=== PATIENT | female | born 1945 | race African-American/Black ===

== ENCOUNTER 2017-08-11 06:39 | Day surgery (SDC) | payer OTHER, BC ==
[2017-08-07 12:35] VITALS: BMI 31.7
[2017-08-11] MEDS: CYCLOPENTOLATE HCL 1% OPHTH SOLN 2 ML BOTTLE ONE ×2 (07:11→07:20)
[2017-08-11] MEDS: FLURBIPROFEN 0.03% OPHTH SOLN 2.5 ML BOTTLE ONE ×2 (07:12→07:20)
[2017-08-11] MEDS: PHENYLEPHRINE 2.5% OPHTH SOLN 15 ML BOTTLE ONE ×2 (07:12→07:21)
[2017-08-11] MEDS: MOXIFLOXACIN HCL 0.5% OPHTHALMIC 3 ML BOTTLE ONE ×2 (07:12→07:22)
[2017-08-11] MEDS: TROPICAMIDE 1% OPHTH SOLN 15 ML BOTTLE ONE ×2 (07:12→07:21)
[2017-08-11 07:14] VITALS: BP 129/44; PULSE 83; TEMP 98
[2017-08-11] MEDS ORDERED: TOBRA 0.3%/DEXAMETH 0.1% OPHTHALMIC SUSP 2.5 ML BTL ONE (07:16)
[2017-08-11] MEDS ORDERED: TETRACAINE 0.5% OPHTH SOLN 2 ML BOTTLE ONE (07:17)
[2017-08-11] MEDS ORDERED: EPINEPHrine/PF 1 MG/1 ML (1:1,000) AMPULE ONE (07:17)
[2017-08-11] MEDS ORDERED: POVIDONE-IODINE 5% OPHTHALMIC PREP 30 ML SOLUTION ONE (07:17)
== END 2017-08-11 09:21 | disposition home or self-care (01) ==
LOC: JASU-SURG 06:39
PROVIDERS: ATTEND Ophthalmology
PROC: 08DK3ZZ Extraction of Left Lens, Percutaneous Approach (ICD-10-PCS; principal; 2017-08-11)
DX: Z53.8 Procedure and treatment not carried out for other reasons (principal)
CPT/HCPCS: 36415; 82947

== ENCOUNTER 2017-09-01 09:19 | Day surgery (SDC) | payer OTHER, BC ==
[2017-08-28 16:53] VITALS: BMI 31.7
[~2017-09-01 09:19] MED LIST: BSS (NA/CA/MG/K) BALANCED SALT SOLUTION OPHTH SOLN 15 ML BOTTLE OD ONE; CHONDROITIN SU A/HYALUR SOD 1 KIT IO ONE; LIDOCAINE HCL 1% PRESERVATIVE FREE - 30ML VIAL IO ONE; PHENYLEPHRINE/KETOROLAC 4 ML VIAL IO ONE; POVIDONE-IODINE 5% OPHTHALMIC PREP 30 ML SOLUTION OD ONE; TETRACAINE 0.5% OPHTH SOLN 2 ML BOTTLE OD ONE; TOBRA 0.3%/DEXAMETH 0.1% OPHTHALMIC SUSP 2.5 ML BTL OD ONE
[2017-09-01] MEDS ORDERED: PHENYLEPHRINE/KETOROLAC 4 ML VIAL IO ONE ×2 (09:30→11:17)
[2017-09-01 09:53] VITALS: TEMP 98
[2017-09-01] MEDS ORDERED: FLURBIPROFEN 0.03% OPHTH SOLN 2.5 ML BOTTLE ONE (10:05)
[2017-09-01] MEDS ORDERED: PHENYLEPHRINE 2.5% OPHTH SOLN 15 ML BOTTLE ONE (10:05)
[2017-09-01] MEDS ORDERED: TROPICAMIDE 1% OPHTH SOLN 15 ML BOTTLE ONE (10:05)
[2017-09-01] MEDS ORDERED: CYCLOPENTOLATE HCL 1% OPHTH SOLN 2 ML BOTTLE ONE (10:05)
[2017-09-01] MEDS ORDERED: MOXIFLOXACIN HCL 0.5% OPHTHALMIC 3 ML BOTTLE ONE (10:05)
[2017-09-01] MEDS ORDERED: PHENYLEPHRINE 2.5% OPHTH SOLN 15 ML BOTTLE OD ONE ×2 (10:10→10:15)
[2017-09-01] MEDS ORDERED: TROPICAMIDE 1% OPHTH SOLN 15 ML BOTTLE OD ONE ×2 (10:10→10:15)
[2017-09-01] MEDS ORDERED: CYCLOPENTOLATE HCL 1% OPHTH SOLN 2 ML BOTTLE OD ONE ×2 (10:10→10:15)
[2017-09-01] MEDS ORDERED: FLURBIPROFEN 0.03% OPHTH SOLN 2.5 ML BOTTLE OD ONE ×2 (10:10→10:15)
[2017-09-01] MEDS ORDERED: MOXIFLOXACIN HCL 0.5% OPHTHALMIC 3 ML BOTTLE OD ONE ×2 (10:10→10:15)
[2017-09-01] MEDS ORDERED: MIDAZOLAM HCL 2 MG/2 ML SINGLE DOSE VIAL ONE (10:47)
[2017-09-01] MEDS ORDERED: TETRACAINE 0.5% OPHTH SOLN 2 ML BOTTLE OD ONE (10:56)
[2017-09-01] MEDS ORDERED: POVIDONE-IODINE 5% OPHTHALMIC PREP 30 ML SOLUTION OD ONE (10:59)
[2017-09-01] MEDS ORDERED: LIDOCAINE HCL 1% PRESERVATIVE FREE - 30ML VIAL IO ONE (11:12)
[2017-09-01] MEDS ORDERED: BSS (NA/CA/MG/K) BALANCED SALT SOLUTION OPHTH SOLN 15 ML BOTTLE OD ONE (11:12)
[2017-09-01] MEDS ORDERED: CHONDROITIN SU A/HYALUR SOD 1 KIT IO ONE (11:12)
[2017-09-01] MEDS ORDERED: TOBRA 0.3%/DEXAMETH 0.1% OPHTHALMIC SUSP 2.5 ML BTL OD ONE (11:33)
[2017-09-01 11:52] VITALS: PULSE 78
[2017-09-01 13:33] VITALS: BP 133/73
--- NOTE | 2017-09-01 20:27 | OP ---
DATE OF OPERATION: 09/01/2017 SPECIALIST: Sharron Crockett M.D. PREOPERATIVE DIAGNOSIS: Cataract right eye. POSTOPERATIVE DIAGNOSIS: Cataract right eye. PROCEDURE: Phacoemulsification of cataract, right eye, with in-bag placement of 20.5 diopter SN60WF with use of . ANESTHESIA: Local. PROCEDURE: The patient was brought to the operating room, and the right eye was prepped and draped in the usual sterile fashion for ophthalmic surgery after placing the tetracaine eye drops. The microscope was swung into position and a 2.75 keratome was used to enter the anterior chamber at approximately 10 o'clock position, with an accessory port made at approximately 2 o'clock position. Cystotome and Utrata forceps were used to make a continuous circular capsulorrhexis after filling the anterior chamber with 0.5 mL of preservative-free lidocaine and viscoelastic. BSS was used to perform hydrodissection and hydrodelineation of the lens nucleus, which was then rotated freely. Phacoemulsification was carried out in a vluude-ovl-[id number] technique. The IA was used to remove residual cortical material from the capsular bag which was then found to be intact and injected into it was a SN60WF 20.5 diopter IOL. It rotated and placed into position using the Sinskey hook. IA was used to remove residual viscoelastic from the capsular bag and anterior chamber. The corneal lip wounds were hydrated with BSS and was found to be watertight. A contact lens soaked in Tobradex solution for approximately 10 minutes was then draped in the cornea. The eye was patched and shielded and patient was transferred to the recovery room in a stable condition having tolerated the procedure well. Faheem [id number]
== END 2017-09-01 13:33 | disposition home or self-care (01) ==
LOC: JASU-SURG 09:19
PROVIDERS: ATTEND Ophthalmology
PROC: 08RJ3JZ Replacement of Right Lens with Synthetic Substitute, Percutaneous Approach (ICD-10-PCS; principal; 2017-09-01 10:30)
DX: H26.9 Unspecified cataract (principal)
CPT/HCPCS: 82962; C9447

== ENCOUNTER 2017-09-22 07:40 | Day surgery (SDC) | payer OTHER, BC ==
[2017-09-19 12:08] VITALS: BMI 32.1
[~2017-09-22 07:40] MED LIST changes: -BSS (NA/CA/MG/K) BALANCED SALT SOLUTION OPHTH SOLN 15 ML BOTTLE OD ONE; -CHONDROITIN SU A/HYALUR SOD 1 KIT IO ONE; -LIDOCAINE HCL 1% PRESERVATIVE FREE - 30ML VIAL IO ONE; -POVIDONE-IODINE 5% OPHTHALMIC PREP 30 ML SOLUTION OD ONE; -TETRACAINE 0.5% OPHTH SOLN 2 ML BOTTLE OD ONE; -TOBRA 0.3%/DEXAMETH 0.1% OPHTHALMIC SUSP 2.5 ML BTL OD ONE; +TOBRA 0.3%/DEXAMETH 0.1% OPHTHALMIC SUSP 2.5 ML BTL OS ONE
[2017-09-22 07:54] VITALS: TEMP 98.5
[2017-09-22] MEDS: MOXIFLOXACIN HCL 0.5% OPHTHALMIC 3 ML BOTTLE ONE ×3 (08:10→08:28)
[2017-09-22] MEDS: CYCLOPENTOLATE HCL 1% OPHTH SOLN 2 ML BOTTLE ONE ×3 (08:10→08:28)
[2017-09-22] MEDS: PHENYLEPHRINE 2.5% OPHTH SOLN 15 ML BOTTLE ONE ×3 (08:10→08:28)
[2017-09-22] MEDS: FLURBIPROFEN 0.03% OPHTH SOLN 2.5 ML BOTTLE ONE ×3 (08:10→08:28)
[2017-09-22] MEDS: TROPICAMIDE 1% OPHTH SOLN 15 ML BOTTLE ONE ×3 (08:10→08:28)
[2017-09-22] MEDS ORDERED: TOBRA 0.3%/DEXAMETH 0.1% OPHTHALMIC SUSP 2.5 ML BTL OS ONE (09:07)
[2017-09-22] MEDS ORDERED: MIDAZOLAM HCL 2 MG/2 ML SINGLE DOSE VIAL ONE (09:20)
[2017-09-22] MEDS ORDERED: TETRACAINE 0.5% OPHTH SOLN 2 ML BOTTLE OS ONE (09:30)
[2017-09-22] MEDS ORDERED: POVIDONE-IODINE 5% OPHTHALMIC PREP 30 ML SOLUTION OS ONE (09:35)
[2017-09-22] MEDS ORDERED: CHONDROITIN SU A/HYALUR SOD 1 KIT IO ONE (09:46)
[2017-09-22] MEDS ORDERED: BSS (NA/CA/MG/K) BALANCED SALT SOLUTION OPHTH SOLN 15 ML BOTTLE OS ONE (09:46)
[2017-09-22] MEDS ORDERED: LIDOCAINE HCL 1% PRESERVATIVE FREE - 30ML VIAL IO ONE (09:46)
[2017-09-22] MEDS ORDERED: PHENYLEPHRINE/KETOROLAC 4 ML VIAL IO ONE (09:52)
[2017-09-22 10:46] VITALS: BP 94/51; PULSE 72
--- NOTE | 2017-09-22 19:06 | OP ---
DATE OF OPERATION: 09/22/2017 SPECIALIST: Sharron Crockett MD PREOPERATIVE DIAGNOSIS: Cataract, left eye. POSTOPERATIVE DIAGNOSIS: Cataract, left eye. PROCEDURE: Phacoemulsification of cataract, left eye, with in-bag placement of SN60WF 19.5-diopter intraocular lens using Omidria. ANESTHESIA: Local. DESCRIPTION OF PROCEDURE: Patient was brought to the operating room, and the left eye was prepped and draped in the usual sterile fashion for ophthalmic surgery after placing tetracaine eye drops. The microscope was swung into position, and a 2.75 keratome was used to enter the anterior chamber at approximately 2 o'clock position with an accessory port made at approximately 5 o'clock position after filling the anterior chamber with 0.5 mL of preservative-free lidocaine and viscoelastic. Cystotome and Utrata forceps were used to make a continuous circular capsulorrhexis. BSS was used to perform hydrodissection and hydrodelineation of the lens nucleus which was then rotated freely. Phacoemulsification was carried out in a olyvmf-ipl-imigccv technique. IA was used to remove residual viscoelastic and cortical material from the capsular bag, which was found to be intact and which was injected with an SN60WF 19.5 diopter IOL. The IA was used to remove residual viscoelastic from the capsular bag and anterior chamber. The corneal lip wounds were then hydrated with BSS and were found to be watertight. A contact lens soaked in TobraDex solution for approximately 10 minutes was then draped in the cornea. The eye was patched and shielded. The patient was transferred to recovery room in a stable condition, having tolerated the procedure well. Omidria was used in the infusion bag. Faheem [id number]
== END 2017-09-22 11:16 | disposition home or self-care (01) ==
LOC: JASU-SURG 07:40
PROVIDERS: ATTEND Ophthalmology
PROC: 08RK3JZ Replacement of Left Lens with Synthetic Substitute, Percutaneous Approach (ICD-10-PCS; principal; 2017-09-22 09:00)
DX: H26.9 Unspecified cataract (principal)
CPT/HCPCS: 82962; C9447

== ENCOUNTER 2017-12-05 22:47 | Inpatient (IN) | payer OTHER, BC ==
--- NOTE | 2017-12-05 22:59 | PDOC ---
History of Present Illness - General Chief Complaint: Weakness Stated Complaint: FATIGUE Time Seen by Provider: 12/05/17 22:59 - History of Present Illness Initial Comments: 12/05/17 23:37 Ms. Ugalde is a 72 yo woman w/ pmh of IDDM, HTN, HLD who presents w/ 3-4 days of weakness w/ altered mental status per family. They say that she has been much more unsteady recently and unable to walk without assistance. She is supposed to take insulin at home but they are unaware of the last time that she took it. Ms. Ugalde also reports she has been urinating frequently lately. The patient denies chest pain, shortness of breath, headache and dizziness. Denies fever, chills, nausea, vomit, diarrhea and constipation. Denies dysuria, urgency and hematuria. Allergies: Metformin Past History - Past Medical History Allergies/Adverse Reactions: Allergies Allergy/AdvReac Type Severity Reaction Status Date / Time metformin AdvReac "NAUSEOUS" Verified 09/19/17 12:05 Home Medications: Ambulatory Orders Atorvastatin Ca [Lipitor] 40 mg PO HS #0 tablet 01/19/13 Cholecalciferol (Vitamin D3) [Vitamin D3 -] 1,000 unit PO DAILY 06/13/17 Insulin (Levemir) [Levemir Flexpen -] 58 units SQ HS 06/13/17 Lisinopril [Prinivil -] 5 mg PO DAILY 06/13/17 Brimonidine Tartrate [Alphagan 0.15% -] 1 drop OD TID 08/07/17 Glipizide [Glucotrol -] 5 mg PO TID 08/07/17 Meclizine HCl 25 mg PO PRN PRN 08/07/17 Brimonidine Tartrate/Timolol [Combigan Eye Drops] 10 ml OP DAILY 12/05/17 Ketorolac Tromethamine 5 ml OP DAILY 12/05/17 Ofloxacin 0.3% Ophth Soln [Ocuflox 0.3% Eye Drops -] 5 ml OP DAILY 12/05/17 Prednisolone 1% Ophthalmic [Pred Forte 1% -] 5 ml OP DAILY 12/05/17 Anemia: No Asthma: No Cancer: No Cardiac Disorders: No CVA: No COPD: No CHF: No Dementia: No Diabetes: Yes GI Disorders: No Disorders: No HTN: Yes Hypercholesterolemia: Yes Liver Disease: No Seizures: No Thyroid Disease: No - Surgical History Abdominal Surgery: No Appendectomy: No Cardiac Surgery: No Cholecystectomy: No Lung Surgery: No Neurologic Surgery: No Orthopedic Surgery: No - Suicide/Smoking/Psychosocial Hx Smoking Status: No Smoking History: Former smoker Have you smoked in the past 12 months: No Number of Cigarettes Smoked Daily: 0 If you are a former smoker, when did you quit?: 21YRS OLD Information on smoking cessation initiated: No Hx Alcohol Use: No Drug/Substance Use Hx: No Substance Use Type: None Hx Substance Use Treatment: No Review of Systems - Review of Systems Comments:: 12/05/17 23:39 GENERAL/CONSTITUTIONAL: +Weakness as described. No fever or chills. HEAD, EYES, EARS, NOSE AND THROAT: No change in vision. No ear pain or discharge. No sore throat. CARDIOVASCULAR: No chest pain or shortness of breath RESPIRATORY: No cough, wheezing, or hemoptysis. GASTROINTESTINAL: No nausea, vomiting, diarrhea or constipation. GENITOURINARY: Increased frequency as described.. MUSCULOSKELETAL: No joint or muscle swelling or pain. No neck or back pain. SKIN: No rash NEUROLOGIC: No headache, vertigo, loss of consciousness, or change in strength/ sensation. ENDOCRINE: No increased thirst. No abnormal weight change HEMATOLOGIC/LYMPHATIC: No anemia, easy bleeding, or history of blood clots. ALLERGIC/IMMUNOLOGIC: No hives or skin allergy. *Physical Exam - Vital Signs Last Vital Signs Temp Pulse Resp BP Pulse Ox 97.4 F L 127 H 20 141/74 100 12/05/17 22:55 12/05/17 22:55 12/05/17 22:55 12/05/17 22:55 12/05/17 22:55 - Physical Exam Comments: 12/05/17 23:39 GENERAL: +Delayed responses, patient distractable. Patient otherwise awake, alert, and fully oriented, in no acute distress HEAD: No signs of trauma, normocephalic, atraumatic EYES: PERRLA, EOMI, sclera anicteric, conjunctiva clear ENT: Auricles normal inspection, hearing grossly normal, nares patent, oropharynx clear without exudates. Moist mucosa NECK: Normal ROM, supple, no lymphadenopathy, JVD, or masses LUNGS: No distress, speaks full sentences, clear to auscultation bilaterally HEART: Regular rate and rhythm, normal S1 and S2, no murmurs, rubs or gallops, peripheral pulses normal and equal bilaterally. ABDOMEN: Soft, nontender, normoactive bowel sounds. No guarding, no rebound. No masses EXTREMITIES: Normal inspection, Normal range of motion, no edema. No clubbing or cyanosis. NEUROLOGICAL: Cranial nerves II through XII grossly intact. Normal speech, normal gait, no focal sensorimotor deficits SKIN: Warm, Dry, normal turgor, no rashes or lesions noted. 12/05/17 23:40 ED Treatment Course - LABORATORY CBC & Chemistry Diagram: 12/05/17 23:20 12/05/17 23:20 Medical Decision Making - Medical Decision Making 12/05/17 23:40 Ms. Ugalde is a 72 yo female w/ pmh as described who presents w/ symptoms of weakness and ams. Finger stick on presentation over-range. Workup begun for suspected DKA. NS Started. 12/06/17 01:23 Blood sugar 1465. Potassium noted to be 5.1. Anion Gap 30. Insulin weight based push given with additional insulin drip. 12/06/17 02:19 Patient admitted to ICU for DKA. Laboratory Results - last 24 hr 12/05/17 12/05/17 12/05/17 23:20 23:20 23:20 WBC 14.2 H D RBC 5.98 H D Hgb 15.8 H D Hct 53.1 H D MCV 88.8 MCH 26.4 MCHC 29.7 L RDW 16.2 H D Plt Count 356 D MPV 11.2 H D Neutrophils % 91.1 H D Lymphocytes % 4.3 L D Monocytes % 4.5 Eosinophils % 0.0 D Basophils % 0.1 PT with INR INR PTT (Actin FS) 28.5 VBG pH POC VBG pCO2 POC VBG pO2 Mixed VBG HCO3 Sodium Potassium Chloride Carbon Dioxide Anion Gap BUN Creatinine Creat Clearance w eGFR Random Glucose Calcium Total Bilirubin AST ALT Alkaline Phosphatase Creatine Kinase 173 Creatine Kinase Index 0.6 CK-MB (CK-2) 1.070 Troponin I < 0.02 B-Natriuretic Peptide Total Protein Albumin Urine Color Urine Appearance Urine pH Ur Specific [place] Urine Protein Urine Glucose (UA) Urine Ketones Urine Blood Urine Nitrite Urine Bilirubin Urine Urobilinogen Ur Leukocyte Esterase Acetone, Qual 12/05/17 12/05/17 12/05/17 23:20 23:20 23:20 WBC RBC Hgb Hct MCV MCH MCHC RDW Plt Count MPV Neutrophils % Lymphocytes % Monocytes % Eosinophils % Basophils % PT with INR 12.00 H INR 1.06 PTT (Actin FS) VBG pH 7.24 L* POC VBG pCO2 40.2 POC VBG pO2 42.1 Mixed VBG HCO3 16.7 L Sodium Potassium Chloride Carbon Dioxide Anion Gap BUN Creatinine Creat Clearance w eGFR Random Glucose Calcium Total Bilirubin AST ALT Alkaline Phosphatase Creatine Kinase Creatine Kinase Index CK-MB (CK-2) Troponin I B-Natriuretic Peptide 76.58 Total Protein Albumin Urine Color Urine Appearance Urine pH Ur Specific [place] Urine Protein Urine Glucose (UA) Urine Ketones Urine Blood Urine Nitrite Urine Bilirubin Urine Urobilinogen Ur Leukocyte Esterase Acetone, Qual 12/05/17 12/05/17 23:20 23:59 WBC RBC Hgb Hct MCV MCH MCHC RDW Plt Count MPV Neutrophils % Lymphocytes % Monocytes % Eosinophils % Basophils % PT with INR INR PTT (Actin FS) VBG pH POC VBG pCO2 POC VBG pO2 Mixed VBG HCO3 Sodium 135 L Potassium 5.1 Chloride 87 L Carbon Dioxide 18 L Anion Gap 30 H BUN 57 H Creatinine 3.0 H Creat Clearance w eGFR 15.38 Random Glucose 1465 H* Calcium 11.6 H Total Bilirubin 0.7 AST 13 L ALT 31 Alkaline Phosphatase 196 H Creatine Kinase Creatine Kinase Index CK-MB (CK-2) Troponin I B-Natriuretic Peptide Total Protein 9.5 H Albumin 5.0 Urine Color Yellow Urine Appearance Cloudy Urine pH 5.0 Ur Specific [place] 1.024 Urine Protein Negative Urine Glucose (UA) 3+ H Urine Ketones Trace H Urine Blood Negative Urine Nitrite Negative Urine Bilirubin Negative Urine Urobilinogen Negative Ur Leukocyte Esterase Negative Acetone, Qual Positive moderate 2+ H *DC/Admit/Observation/Transfer Diagnosis at time of Disposition: DKA (diabetic ketoacidoses) Qualifiers: Diabetes mellitus type: type 2 Diabetes mellitus complication detail: without coma Qualified Code(s): E11.10 - Type 2 diabetes mellitus with ketoacidosis without coma - Discharge Dispostion Admit: Yes - Referrals Referrals: Naima Conde MD [Primary Care Provider] - - Patient Instructions - Post Discharge Activity
[2017-12-05] MEDS ORDERED: SODIUM CHLORIDE 1,000 ML IV STA (23:15)
[2017-12-05 23:41] LABS: BASO % 0.1 % (0-2.0); HEMATOCRIT 53.1 % (32.4-45.2); HEMOGLOBIN 15.8 GM/dL (10.7-15.3); LYMPH % 4.3 % (8-40); MCH 26.4 pg (25.7-33.7); MCHC 29.7 g/dl (32.0-36.0); MEAN CELL VOLUME 88.8 fl (80-96); MEAN PLT VOLUME 11.2 fl (7.5-11.1); MONO % 4.5 % (3.8-10.2); NEUT % 91.1 % (42.8-82.8); PLATELET COUNT 356 K/MM3 (134-434); RBC 5.98 M/mm3 (3.60-5.2); RDW 16.2 % (11.6-15.6); WHITE BLOOD COUNT 14.2 K/mm3 (4.0-10.0)
[2017-12-05 23:42] LABS: VENOUS PC02 40.2 mmHg (38-52); VENOUS PH 7.24 (7.32-7.42); VENOUS PO2 42.1 mmHg (28-48)
[2017-12-05 23:54] LABS: INR 1.06 (0.82-1.09)
[2017-12-06 00:08] LABS: ACETONE SERUM POSITIVE MODERATE 2+ (NEGATIVE)
[2017-12-06 00:11] LABS: ALK PHOS 196 U/L (45-117); ANION GAP 30 (8-16); BILIRUBIN,TOTAL 0.7 mg/dL (0.2-1.0); BLOOD UREA NITROGEN 57 mg/dL (7-18); CALCIUM 11.6 mg/dL (8.5-10.1); CHLORIDE 87 mmol/L (98-107); CO2 18 mmol/L (21-32); POTASSIUM 5.1 mmol/L (3.5-5.1); SGOT/AST 13 U/L (15-37); SGPT/ALT 31 U/L (12-78); SODIUM 135 mmol/L (136-145); TOT PROT 9.5 g/dl (6.4-8.2)
[2017-12-06 00:14] LABS: URINE APPEARANCE CLOUDY; URINE BILIRUBIN NEGATIVE (<2.0 mg/dL); URINE BLOOD NEGATIVE (NEGATIVE); URINE COLOR YELLOW; URINE GLUCOSE (UA) 3+ (NEGATIVE); URINE KETONE TRACE (NEGATIVE); URINE LEUK ESTERASE NEGATIVE (NEGATIVE); URINE NITRITE NEGATIVE (NEGATIVE); URINE PROTEIN NEGATIVE (NEGATIVE); URINE UROBILINOGEN NEGATIVE mg/dL (0.2-1.0)
--- NOTE | 2017-12-06 00:18 | PDOC ---
Attending Attestation - Resident Resident Name: Marques Rehman - ED Attending Attestation I have performed the following: I have examined & evaluated the patient, The case was reviewed & discussed with the resident, I agree w/resident's findings & plan, Exceptions are as noted - HPI HPI: 12/05/17 23:49 72 F with h/o HTN, DM, HLD presenting to ED with 6 days with nausea, vomiting, and SOB. Pt denies CP. Denies F/C. Denies abdominal pain. Pt admits to being poorly compliant with her meds. Does not check her sugars regularly. Denies h/o DKA/HHS. Endorses excessive thirst and urination. - Physicial Exam PE: 12/06/17 00:18 "GENERAL: Awake, alert, and fully oriented, in no acute distress. Generally weak appearing. HEAD: No signs of trauma EYES: PERRLA, EOMI, sclera anicteric, conjunctiva clear ENT: Auricles normal inspection, hearing grossly normal, nares patent, oropharynx clear without exudates. Moist mucosa NECK: Nontender, no stepoffs, Normal ROM, supple, no lymphadenopathy, JVD, or masses LUNGS: Breath sounds equal, clear to auscultation bilaterally. No wheezes, and no crackles HEART: Regular rate and rhythm, normal S1 and S2, no murmurs, rubs or gallops ABDOMEN: Soft, nontender, normoactive bowel sounds. No guarding, no rebound. No masses EXTREMITIES: Normal range of motion, no edema. No clubbing or cyanosis. No cords, erythema, or tenderness NEUROLOGICAL: Cranial nerves II through XII intact. 5/5 strength and sensation in all extremities, Normal speech, normal gait, normal cerebellar function SKIN: Warm, Dry, normal turgor, no rashes or lesions noted. " - Medical Decision Making 12/06/17 00:19 72 F with N/V, SOB. Fingerstick in ED critical high. Likely DKA vs HHS. - Labs, acetone, VBG, UA - IVF, insulin prn 12/06/17 02:43 Labs consistent with DKA - AG 30, + serum and urine ketones, pH 7.2 Pt bolused with insulin 7u IV and started on gtt @ 7u 2L NS bolus administered Will check Q1hr fingerstick and Q4hr chemistries Admit ICU
[2017-12-06 00:28] LABS: GLUCOSE,RANDOM 1465 mg/dL (74-106)
[2017-12-06] MEDS ORDERED: INSULIN REGULAR HUMAN 100 UNITS/ML *VIAL IVPUSH ONE (00:29)
[2017-12-06] MEDS ORDERED: INSULIN REGULAR 100 UNITS in SODIUM CHLORIDE 99 ML IVPB SCH (00:30)
[2017-12-06] MEDS ORDERED: SODIUM CHLORIDE 1,000 ML IV STA (00:40)
[2017-12-06] MEDS ORDERED: INSULIN REGULAR HUMAN 100 UNITS/ML *VIAL ONE (01:20)
--- NOTE | 2017-12-06 02:37 | HP ---
CHIEF COMPLAINT: vomiting, fatigue, polyuria PCP: Dr. Naima Conde Endo: Dr. palacios Neuro: Dr. Molina HISTORY OF PRESENT ILLNESS: 72 yr old woman with DMII on insulin, HTN, glaucoma, cataracts brought to ED by due to vomiting since 2pm Friday and fatigue. She was sleeping the entire day and would only wake up to urinate and then started to vomiting nonbilious nonbloody emesis, few episodes, occurred when she drank water. She had not been feeling well all week, started drinking [place] spray cranberry juice since the weekend because it said "there was no sugar in it." she notes polyuria and polydipsia, "no matter how much I drank, I couldn't get enough." Her was sick last week with the flu. All week she has been experiencing chills and a mild headache. She takes her fasting AM BGM's: 140-150's this week , her usual range. no new medications or medication changes in last 3 months. She was in [place] for the past month where spent time raking leaves in the yard. denies fevers, diarrhea, constipation, cough, chest pain, sob, syncope. ER course was notable for: (1) IVF NS bolus x2, insulin drip (2) chest xray without acute pathology Recent Travel: [place] PAST MEDICAL HISTORY: DM II, HTN, glaucoma, cataracts PAST SURGICAL HISTORY: Cataract surgery x2, 1 eye in aug 2017 and second eye in sep 2017 hysterectomy when she was younger due to "heavy bleeding" Social History: , lives with and dog. has two adult daughters. Smoking: remote, ages [age] 1pk/week, stopped when she got whooping cough Alcohol: rare glass, last use in Jul 2017 Drugs: denies Family History: mother with heart disease age 86, father dx'd with pancreatic cancer age 30 age 70, sister with DM II Allergies metformin Adverse Reaction (Verified 09/19/17 12:05) "NAUSEOUS" nausea HOME MEDICATIONS: Lisinopril 5mg po qd moxifloxicin 0.5% QID 1 time RX in august Alphagan 0.15% TID meclizine 25mg BID by Dr. Jesse arnold 30units BID in Sep 2017 last picked up, rx by dr.shresta vitamin D3 1000 daily Home Medications Medication Instructions Recorded Atorvastatin Ca [Lipitor] not picked up since last year 40 mg PO HS #0 tablet Cholecalciferol (Vitamin D3) 1,000 unit PO DAILY 06/13/17 [Vitamin D3 -] Insulin (Levemir) [Levemir Flexpen 58 units SQ HS 06/13/17 -] Lisinopril [Prinivil -] 5 mg PO DAILY 06/13/17 Brimonidine Tartrate [Alphagan 1 drop OD TID 08/07/17 0.15% -] Glipizide [Glucotrol -] not picked since last year 5 mg PO TID 08/07/17 Meclizine HCl 25 mg PO PRN PRN 08/07/17 Brimonidine Tartrate/Timolol no rx 10 ml OP DAILY 12/05/17 [Combigan Eye Drops] Ketorolac Tromethamine 1 drop affected 5 ml OP DAILY 12/05/17 Ofloxacin 0.3% Ophth Soln [Ocuflox 5 ml OP DAILY 12/05/17 0.3% Eye Drops -] Prednisolone 1% Ophthalmic [Pred 5 ml OP DAILY 12/05/17 Forte 1% -] no rx REVIEW OF SYSTEMS CONSTITUTIONAL: Present: intentional weight loss(lost 20lbs in past few months) Absent: fever, chills, diaphoresis, generalized weakness, malaise, loss of appetite HEENT: Absent: rhinorrhea, nasal congestion, throat pain, throat swelling, difficulty swallowing, mouth swelling, ear pain, eye pain, visual changes CARDIOVASCULAR: Absent: chest pain, syncope, palpitations, irregular heart rate, lightheadedness , peripheral edema RESPIRATORY: Absent: cough, shortness of breath, dyspnea with exertion, orthopnea, wheezing, stridor, hemoptysis GASTROINTESTINAL: Absent: abdominal pain, abdominal distension, nausea, vomiting, diarrhea, constipation, melena, hematochezia GENITOURINARY: Present: frequency Absent: dysuria, urgency, hesitancy, hematuria, flank pain, genital pain MUSCULOSKELETAL: Absent: myalgia, arthralgia, joint swelling, back pain, neck pain SKIN: Absent: rash, itching, pallor HEMATOLOGIC/IMMUNOLOGIC: Absent: easy bleeding, easy bruising, lymphadenopathy, frequent infections ENDOCRINE: Absent: unexplained weight gain, unexplained weight loss, heat intolerance, cold intolerance NEUROLOGIC: Present: headache, Absent:focal weakness or paresthesias, dizziness, unsteady gait, seizure, mental status changes, bladder or bowel incontinence PSYCHIATRIC: Absent: anxiety, depression PHYSICAL EXAMINATION Vital Signs - 24 hr 12/05/17 12/05/17 22:55 23:43 Temperature 97.4 F L Pulse Rate 127 H Respiratory 20 Rate Blood Pressure 141/74 O2 Sat by Pulse 100 95 Oximetry (%) GENERAL: Awake, alert, and fully oriented, in no acute distress. HEAD: Normal with no signs of trauma. EYES: Pupils equal, round and reactive to light s/p cataract surgery, extraocular movements intact, sclera anicteric, conjunctiva clear. No lid lag. EARS, NOSE, THROAT: oropharynx clear without exudates. very dry mucous membranes. no sinus tenderness NECK: Normal range of motion, supple without lymphadenopathy, JVD, or masses. no bruits LUNGS: Breath sounds equal, clear to auscultation bilaterally. No wheezes, and no crackles. No accessory muscle use. HEART: Regular rhythm, sinus tachycardia, normal S1 and S2 with systolic ejection murmur. ABDOMEN: Soft, nontender, not distended, normoactive bowel sounds, no guarding, no rebound, no masses. No hepatomegaly or splenomegaly. well healed hysterectomy scar MUSCULOSKELETAL: Normal range of motion at all joints. No bony deformities or tenderness. No CVA tenderness. UPPER EXTREMITIES: 2+ radial pulses, warm, well-perfused. No cyanosis. No clubbing. No peripheral edema. LOWER EXTREMITIES: 2+ dp pulses, warm, well-perfused. No calf tenderness. No peripheral edema. NEUROLOGICAL: Cranial nerves II-XII intact. Normal speech. 3/5 b/l hip extension. 5/5 hand sheriff sergeant/biceps/triceps/ankle dorsi-plantar flexion/knee flexion and extension. facial symmetry. gross sensation intact throughout. PSYCHIATRIC: Cooperative. Good eye contact. Appropriate mood and affect. SKIN: Warm, dry, no rashes or lesions noted, normal capillary refill. Laboratory Results - last 24 hr 12/05/17 12/05/17 12/05/17 23:20 23:20 23:20 WBC 14.2 H D RBC 5.98 H D Hgb 15.8 H D Hct 53.1 H D MCV 88.8 MCH 26.4 MCHC 29.7 L RDW 16.2 H D Plt Count 356 D MPV 11.2 H D Neutrophils % 91.1 H D Lymphocytes % 4.3 L D Monocytes % 4.5 Eosinophils % 0.0 D Basophils % 0.1 PT with INR INR PTT (Actin FS) 28.5 VBG pH POC VBG pCO2 POC VBG pO2 Mixed VBG HCO3 Sodium Potassium Chloride Carbon Dioxide Anion Gap BUN Creatinine Creat Clearance w eGFR Random Glucose Calcium Total Bilirubin AST ALT Alkaline Phosphatase Creatine Kinase 173 Creatine Kinase Index 0.6 CK-MB (CK-2) 1.070 Troponin I < 0.02 B-Natriuretic Peptide Total Protein Albumin Urine Color Urine Appearance Urine pH Ur Specific [place] Urine Protein Urine Glucose (UA) Urine Ketones Urine Blood Urine Nitrite Urine Bilirubin Urine Urobilinogen Ur Leukocyte Esterase Acetone, Qual 12/05/17 12/05/17 12/05/17 23:20 23:20 23:20 WBC RBC Hgb Hct MCV MCH MCHC RDW Plt Count MPV Neutrophils % Lymphocytes % Monocytes % Eosinophils % Basophils % PT with INR 12.00 H INR 1.06 PTT (Actin FS) VBG pH 7.24 L* POC VBG pCO2 40.2 POC VBG pO2 42.1 Mixed VBG HCO3 16.7 L Sodium Potassium Chloride Carbon Dioxide Anion Gap BUN Creatinine Creat Clearance w eGFR Random Glucose Calcium Total Bilirubin AST ALT Alkaline Phosphatase Creatine Kinase Creatine Kinase Index CK-MB (CK-2) Troponin I B-Natriuretic Peptide 76.58 Total Protein Albumin Urine Color Urine Appearance Urine pH Ur Specific [place] Urine Protein Urine Glucose (UA) Urine Ketones Urine Blood Urine Nitrite Urine Bilirubin Urine Urobilinogen Ur Leukocyte Esterase Acetone, Qual 12/05/17 12/05/17 23:20 23:59 WBC RBC Hgb Hct MCV MCH MCHC RDW Plt Count MPV Neutrophils % Lymphocytes % Monocytes % Eosinophils % Basophils % PT with INR INR PTT (Actin FS) VBG pH POC VBG pCO2 POC VBG pO2 Mixed VBG HCO3 Sodium 135 L Potassium 5.1 Chloride 87 L Carbon Dioxide 18 L Anion Gap 30 H BUN 57 H Creatinine 3.0 H Creat Clearance w eGFR 15.38 Random Glucose 1465 H* Calcium 11.6 H Total Bilirubin 0.7 AST 13 L ALT 31 Alkaline Phosphatase 196 H Creatine Kinase Creatine Kinase Index CK-MB (CK-2) Troponin I B-Natriuretic Peptide Total Protein 9.5 H Albumin 5.0 Urine Color Yellow Urine Appearance Cloudy Urine pH 5.0 Ur Specific [place] 1.024 Urine Protein Negative Urine Glucose (UA) 3+ H Urine Ketones Trace H Urine Blood Negative Urine Nitrite Negative Urine Bilirubin Negative Urine Urobilinogen Negative Ur Leukocyte Esterase Negative Acetone, Qual Positive moderate 2+ H Active Medications Chlorhexidine Gluconate (Hibiclens For Decolonization -) 1 applic TP HS [facility] Insulin Human Regular 100 (units/ Sodium Chloride) 100 mls @ 7.25 mls/hr IVPB TITR [facility]; 0.1 UNITS/KG/HR PRN Reason: Protocol Last Admin: 12/06/17 01:00 Dose: 0.1 units/kg/hr, 7.25 mls/hr Potassium Chloride 10 meq/ (Sodium Chloride) 1,005 mls @ 75 mls/hr IVPB Q13H [facility] Mupirocin (Bactroban Ointment (For Decolonization) -) 1 applic NS BID [facility] Stop: 12/11/17 09:59 ASSESSMENT/PLAN: 72 yr old woman with DM II, HTN, HLD, presented to ED with polyuria and fatigue after drinking fruit juice for one week found to have high anion gap acidosis likely from HHS (pH>7.3, glucose>600, ketones small, bicarb>18, serum osm 389) admitted to ICU. #HHS - likely from dietary noncompliance, r/o infectious cause from sick contact : flu swab, urine pna ag - ua without indication of infection, no acute pathology on chest xray - IVF NS @75cc/hr w/10meq K+, decreased EF on echo from 2014 will start with gentle hydration, repeat echo ordered - insulin bolus given in ED and drip started - BGM Q1hr - repeat bmp to assess electrolytes and anion gap (29.5) q4hr - replete electrolytes as needed, check magnesium and phos, a1c - changed fluids to 1/2 Nsw/K+ due to elevated sodium, add +D5W if BGM <300 - will need to have family bring in home medications, as pharmacy only has levemir 30units BID without short-acting insulin or oral diabetic medications, hold levemir. - NPO until resolution of HHS #LUCY (baseline Cr 1.2-0.8) - likely secondary to dehydration from osmotic diuresis from fruit juice - IVF, monitor I& O's - repeat labs - urine sodium, urine cr, renal ultrasound ordered to further evaluate #Pseudohypernatremia secondary to hyperglycemia corrected sodium 159 - IVF #Leucocytosis - suggestive of infection vs reactive to HH state, r/o infxn, repeat labs #HTN - hold ACEI in setting of LUCY #Tachycardia - likely due to dehydration #Glaucoma- continue home eye drops: alphagan & ketorolac & ocuflux #HLD: lipitor 40mg po HS #continue home vitamin D3, and meclizine prn for vertigo #DVT prophylaxis Heparin BID subq #PT consult to assess walking/need for SNF at time of discharge given LE weakness, pt's says she has hx of gait imbalance/concern for deconditioning in elderly Visit type - Emergency Visit Emergency Visit: Yes ED Registration Date: 12/06/17 Care time: The patient presented to the Emergency Department on the above date and was hospitalized for further evaluation of their emergent condition. - New Patient This patient is new to me today: Yes Date on this admission: 12/09/17 - Critical Care Critical Care patient: Yes Total Critical Care Time (in minutes): 38 Critical Care Statement: The care of this patient involved high complexity decision making to prevent further life threatening deterioration of the patient 's condition and/or to evaluate & treat vital organ system(s) failure or risk of failure. Hospitalist Screening - Colonoscopy Questionnaire Colonoscopy Questionnaire: Colonoscopy Questionnaire - Patient: 50 - 75 years old and never had a screening colonoscopy: Unknown History of colon or rectal polyps, or CA: Unknown History of IBD, Crohn's disease or UC: Unknown History of abdominal radiation therapy as a child: Unknown - Relative: 1 with colon or rectal CA, or polyps at age 60 or younger: Unknown Colon or rectal CA diagnosed at age 45 or younger: Unknown Multiple relatives with colon or rectal CA: Unknown - Outcome: Screening Result: Negative Screen
[2017-12-06] MEDS ORDERED: SODIUM CHLORIDE 1,000 ML IV SCH ×2 (02:45)
[2017-12-06] MEDS ORDERED: POTASSIUM CHLORIDE 10 MEQ in SODIUM CHLORIDE 1,000 ML IVPB SCH (02:45)
--- NOTE | 2017-12-06 05:05 | PN ---
Teaching Attending Note Name of Resident: Gali Man ATTENDING PHYSICIAN STATEMENT I saw and evaluated the patient. I reviewed the resident's note and discussed the case with the resident. I agree with the resident's findings and plan as documented. SUBJECTIVE:72 y/o F presenting to ED with vomiting and fatigue for one day. Patient reports excessive thirst and drinking soda, cranberry juice patient also reports recent sick contact, her had URI, possible flu. OBJECTIVE: GEn: patient appears toxic, A&ox3 in acute distress. HEENT: PERRLA, EOMI, oral mucosa dry CVS: tachycardic Abd: soft , nt, bs+ Ext: nl ROM, 2+ pulses, extremely long nails Neuro- lethargic, CN intact ASSESSMENT AND PLAN: Uncontrolled DM2 with HHS Admit to ICU IVF NS, insulin drip and monitor FS q1h and BMP q4h. Supplement kcl as needed. If glucose less than 250 switch ivf to D5Ns until gap closes. Follow osmolarity , and influenza test. Patient counselled on Diabetic diet and would benefit from diabetes education. Follow HgbA1c. DVT prophylaxis.
[2017-12-06] MEDS ORDERED: MECLIZINE HCL 25 MG TABLET (FP) PO PRN (05:14)
[2017-12-06 05:18] LABS: URINE CREATININE 33.9 mg/dL (20-320)
[2017-12-06 05:30] LABS: MAGNESIUM 3.4 mg/dL (1.8-2.4); PHOSPHOROUS 2.9 mg/dL (2.5-4.9)
[2017-12-06 05:34] LABS: ALBUMIN 3.9 g/dl (3.4-5.0); ALK PHOS 162 U/L (45-117); ANION GAP 18 (8-16); BILIRUBIN,TOTAL 0.4 mg/dL (0.2-1.0); BLOOD UREA NITROGEN 57 mg/dL (7-18); CALCIUM 9.9 mg/dL (8.5-10.1); CHLORIDE 110 mmol/L (98-107); CO2 19 mmol/L (21-32); CREATININE 2.5 mg/dL (0.55-1.02); POTASSIUM 3.8 mmol/L (3.5-5.1); SGOT/AST 11 U/L (15-37); SGPT/ALT 26 U/L (12-78); SODIUM 147 mmol/L (136-145); TOT PROT 8.1 g/dl (6.4-8.2)
[2017-12-06 05:40] LABS: GLUCOSE,RANDOM 894 mg/dL (74-106)
[2017-12-06 05:47] LABS: BASO % 0.4 % (0-2.0); HEMATOCRIT 48.2 % (32.4-45.2); HEMOGLOBIN 15.3 GM/dL (10.7-15.3); LYMPH % 8.6 % (8-40); MCH 26.1 pg (25.7-33.7); MCHC 31.8 g/dl (32.0-36.0); MEAN PLT VOLUME 10.6 fl (7.5-11.1); MONO % 4.7 % (3.8-10.2); NEUT % 86.3 % (42.8-82.8); PLATELET COUNT 268 K/MM3 (134-434); RBC 5.87 M/mm3 (3.60-5.2); RDW 14.6 % (11.6-15.6); WHITE BLOOD COUNT 15.5 K/mm3 (4.0-10.0)
[2017-12-06] MEDS ORDERED: POTASSIUM CHLORIDE 10 MEQ in SODIUM CHLORIDE 0.45% 1,000 ML IVPB SCH (06:00)
[2017-12-06 09:41] LABS: BASO % 0.4 % (0-2.0); HEMATOCRIT 47.5 % (32.4-45.2); HEMOGLOBIN 15.2 GM/dL (10.7-15.3); LYMPH % 12.5 % (8-40); MCHC 32.1 g/dl (32.0-36.0); MONO % 5.5 % (3.8-10.2); NEUT % 81.6 % (42.8-82.8); PLATELET COUNT 285 K/MM3 (134-434); RBC 5.86 M/mm3 (3.60-5.2); RDW 14.4 % (11.6-15.6); WHITE BLOOD COUNT 16.5 K/mm3 (4.0-10.0)
[2017-12-06] MEDS ORDERED: MUPIROCIN 2% TOPICAL OINTMENT FOR DECOLONIZATION NS SCH (10:00)
[2017-12-06 10:16] LABS: ANION GAP 10 (8-16); BLOOD UREA NITROGEN 56 mg/dL (7-18); CALCIUM 10.5 mg/dL (8.5-10.1); CHLORIDE 113 mmol/L (98-107); CO2 28 mmol/L (21-32); CREATININE 2.3 mg/dL (0.55-1.02); POTASSIUM 3.9 mmol/L (3.5-5.1); SODIUM 151 mmol/L (136-145)
[2017-12-06] MEDS: BRIMONIDINE TARTRATE 0.15% OPHTHALMIC 5 ML BOTTLE OD SCH ×3 (10:21→22:23)
[2017-12-06] MEDS: HEPARIN NA (PORCINE) 5,000 UNITS/ML 1ML VIAL SQ SCH ×2 (10:29→22:29)
[2017-12-06] MEDS: KETOROLAC TROMETHAMINE 0.5% 5 ML BOTTLE OPTHALMIC OU SCH (10:29)
[2017-12-06] MEDS: OFLOXACIN 0.3% OPHTHALMIC SOLUTION 5 ML BOTTLE OU SCH (10:29)
[2017-12-06] MEDS: CHOLECALCIFEROL (VITAMIN D3) 1,000 UNIT TABLET (FP) PO SCH (10:29)
[2017-12-06 10:35] LABS: GLUCOSE,RANDOM 570 mg/dL (74-106)
[2017-12-06] MEDS ORDERED: INSULIN (NOVOLOG) ASPART 100 UNITS/ML 10ML VIAL ONE ×2 (13:14→22:20)
[2017-12-06] MEDS ORDERED: HEMOQUE TEST 1 EACH EACH ONE (16:52)
[2017-12-06 17:11] LABS: ANION GAP 5 (8-16); BLOOD UREA NITROGEN 59 mg/dL (7-18); CALCIUM 10.6 mg/dL (8.5-10.1); CHLORIDE 123 mmol/L (98-107); CO2 29 mmol/L (21-32); GLUCOSE,RANDOM 236 mg/dL (74-106); POTASSIUM 3.9 mmol/L (3.5-5.1); SODIUM 157 mmol/L (136-145)
[2017-12-06] MEDS ORDERED: D5-1/2NS+10 MEQ KCL - 10 MEQ/1,000 ML INFUS.BAG IV SCH (17:15)
[2017-12-06] MEDS ORDERED: D5-1/2NS+40 MEQ KCL - 40 MEQ/1,000 ML INFUS.BAG IV SCH ×2 (20:30)
[2017-12-06] MEDS ORDERED: INSULIN DETEMIR 100 UNITS/ML MDV SQ SCH ×2 (22:00)
[2017-12-06] MEDS ORDERED: CHLORHEXIDINE GLUCONATE 4% CLEANSER FOR DECOLONIZATION TP SCH (22:00)
[2017-12-06] MEDS: ATORVASTATIN CA 40 MG TABLET (FP) PO SCH (22:27)
[2017-12-06] MEDS: INSULIN SLIDING SCALE (NOVOLOG) 1 VIAL SQ SCH (22:30)
[2017-12-06] MEDS ORDERED: PT OWN MED DRAWER 7, Y5N ONE (22:50)
[2017-12-07 01:50] VITALS: BMI 25.3
[2017-12-07] MEDS ORDERED: INSULIN (NOVOLOG) ASPART 100 UNITS/ML 10ML VIAL SQ ONE ×2 (03:17→19:00)
[2017-12-07] MEDS: BRIMONIDINE TARTRATE 0.15% OPHTHALMIC 5 ML BOTTLE OD SCH ×3 (06:30→21:38)
[2017-12-07] MEDS: INSULIN SLIDING SCALE (NOVOLOG) 1 VIAL SQ SCH ×4 (06:30→21:39)
[2017-12-07 07:30] LABS: BASO % 0.2 % (0-2.0); EOS % 0.1 % (0-4.5); HEMATOCRIT 44.9 % (32.4-45.2); HEMOGLOBIN 14.6 GM/dL (10.7-15.3); LYMPH % 11.5 % (8-40); MCH 26.4 pg (25.7-33.7); MCHC 32.5 g/dl (32.0-36.0); MEAN CELL VOLUME 81.1 fl (80-96); MEAN PLT VOLUME 10.8 fl (7.5-11.1); MONO % 5.1 % (3.8-10.2); NEUT % 83.1 % (42.8-82.8); PLATELET COUNT 219 K/MM3 (134-434); RBC 5.53 M/mm3 (3.60-5.2); RDW 14.3 % (11.6-15.6); WHITE BLOOD COUNT 16.4 K/mm3 (4.0-10.0)
[2017-12-07 08:12] LABS: CHLORIDE 121 mmol/L (98-107); POTASSIUM 4.2 mmol/L (3.5-5.1); SODIUM 155 mmol/L (136-145)
[2017-12-07 08:22] LABS: ANION GAP 7 (8-16); BLOOD UREA NITROGEN 54 mg/dL (7-18); CALCIUM 9.7 mg/dL (8.5-10.1); CO2 27 mmol/L (21-32); CREATININE 1.7 mg/dL (0.55-1.02)
[2017-12-07 08:55] LABS: GLUCOSE,RANDOM 436 mg/dL (74-106)
[2017-12-07] MEDS: HEPARIN NA (PORCINE) 5,000 UNITS/ML 1ML VIAL SQ SCH ×2 (09:43→21:39)
[2017-12-07] MEDS: KETOROLAC TROMETHAMINE 0.5% 5 ML BOTTLE OPTHALMIC OU SCH (09:44)
[2017-12-07] MEDS: OFLOXACIN 0.3% OPHTHALMIC SOLUTION 5 ML BOTTLE OU SCH (09:44)
[2017-12-07] MEDS: CHOLECALCIFEROL (VITAMIN D3) 1,000 UNIT TABLET (FP) PO SCH (09:44)
--- NOTE | 2017-12-07 11:39 | PN ---
Progress Note, Physician History of Present Illness: pt seen/ examined chart reviewed feels better no distress afebrile - Current Medication List Current Medications: Active Medications Atorvastatin Calcium (Lipitor -) 40 mg PO HS [facility] Last Admin: 12/06/17 22:27 Dose: 40 mg Brimonidine Tartrate (Alphagan 0.15% -) 1 drop OD TID [facility] Last Admin: 12/07/17 06:30 Dose: 1 drop Cholecalciferol (Vitamin D3 -) 1,000 unit PO DAILY [facility] Last Admin: 12/07/17 09:44 Dose: 1,000 unit Heparin Sodium (Porcine) (Heparin -) 5,000 unit SQ BID [facility] Last Admin: 12/07/17 09:43 Dose: 5,000 unit Dextrose/Sodium Chloride (D5-1/2ns+40 Meq Kcl -) 40 meq in 1,000 mls @ 100 mls/ hr IV ASDIR [facility] Last Admin: 12/06/17 22:29 Dose: 100 mls/hr Insulin Aspart (Novolog Vial Sliding Scale -) 1 vial SQ ACHS [facility] PRN Reason: Protocol Last Admin: 12/07/17 11:31 Dose: 6 units Insulin Detemir (Levemir Vial) 35 units SQ HS [facility] Ketorolac Tromethamine (Ketorolac Tromethamine) 1 drop OU DAILY [facility] Last Admin: 12/07/17 09:44 Dose: 1 drop Meclizine HCl (Antivert -) 25 mg PO Q8H PRN PRN Reason: DIZZINESS Ofloxacin (Ocuflox 0.3% Eye Drops -) 1 drop OU DAILY [facility] Last Admin: 12/07/17 09:44 Dose: 1 drop - Objective Vital Signs: Vital Signs Temperature 98.2 F 12/07/17 09:53 Pulse Rate 105 H 12/07/17 09:53 Respiratory Rate 20 12/07/17 09:53 Blood Pressure 122/71 12/07/17 09:53 O2 Sat by Pulse Oximetry (%) 96 12/07/17 09:00 Constitutional: Yes: No Distress, Calm Eyes: Yes: Conjunctiva Clear Neck: Yes: Supple Cardiovascular: Yes: Regular Rate and Rhythm Respiratory: Yes: CTA Bilaterally Gastrointestinal: Yes: Soft Edema: No Neurological: Yes: Alert Labs: CBC, BMP 12/07/17 06:30 12/07/17 06:30 INR, PTT INR 1.06 (0.82-1.09) 12/05/17 23:20 Problem List - Problems (1) DKA (diabetic ketoacidoses) Code(s): E13.10 - OTH DIABETES MELLITUS WITH KETOACIDOSIS WITHOUT COMA Qualifiers: Diabetes mellitus type: type 2 Diabetes mellitus complication detail: without coma Qualified Code(s): E11.10 - Type 2 diabetes mellitus with ketoacidosis without coma Assessment/Plan monitor . continue present care continue fluids but decrease rate f/u lytes compliance stressed . discussed with nursing staff endo consult -- pending will follow time spend 30 min
[2017-12-07] MEDS ORDERED: ONDANSETRON 4 MG/2 ML VIAL IVPUSH PRN (13:56)
[2017-12-07] MEDS ORDERED: D5-1/2NS+40 MEQ KCL - 40 MEQ/1,000 ML INFUS.BAG IV SCH (14:00)
[2017-12-07] MEDS ORDERED: DEXTROSE 5%-0.45% SALINE 1,000 ML with POTASSIUM CHLORIDE 40 MEQ IV SCH ×2 (14:57→20:44)
--- NOTE | 2017-12-07 15:01 | CONSULT ---
Consult Consult Specialty:: Endocrinology Referred by:: Dr Jason White Reason for Consultation:: Hyperglycemia - History of Present Illness Chief Complaint: Nausea, vomiting History of Present Illness: This is a 72 yr old woman with DMII on insulin, HTN, glaucoma, cataracts brought to ED by due to vomiting since 2pm Friday and fatigue. She was sleeping the entire day and would only wake up to urinate and then started to vomiting nonbilious nonbloody emesis, few episodes, occurred when she drank water. She as in [place] for about a month and she had been eating " a lot". She had not been feeling well all week, since returning to [place]. She started drinking a lot of cranberry juice, grapes. since the weekend because it said "there was no sugar in it." She also stopped taking Insulin about a week ago. She notes polyuria and polydipsia.." Lost about 30 lbs in the last month or so. Says Fs at home has been about 140, she however hasn't checked it for about a week. Pt treated with IV hydration and IV Insulin with improvement in symptoms. Still feels slightly nauseous when she eats. Has occasional numbness of feet. - History Source History Provided By: Patient, Family Member, Medical Record - Past Medical History Endocrine: Yes: Diabetes Mellitus - Alcohol/Substance Use Hx Alcohol Use: No - Smoking History Smoking history: Former smoker Have you smoked in the past 12 months: No Aproximately how many cigarettes per day: 0 If you are a former smoker, when did you quit?: 21YRS OLD Home Medications - Allergies Allergies/Adverse Reactions: Allergies Allergy/AdvReac Type Severity Reaction Status Date / Time metformin AdvReac "NAUSEOUS" Verified 09/19/17 12:05 - Home Medications Home Medications: Ambulatory Orders Atorvastatin Ca [Lipitor] 40 mg PO HS #0 tablet 01/19/13 Cholecalciferol (Vitamin D3) [Vitamin D3 -] 1,000 unit PO DAILY 06/13/17 Insulin (Levemir) [Levemir Flexpen -] 58 units SQ HS 06/13/17 Lisinopril [Prinivil -] 5 mg PO DAILY 06/13/17 Brimonidine Tartrate [Alphagan 0.15% -] 1 drop OD TID 08/07/17 Glipizide [Glucotrol -] 5 mg PO TID 08/07/17 Meclizine HCl 25 mg PO PRN PRN 08/07/17 Brimonidine Tartrate/Timolol [Combigan Eye Drops] 10 ml OP DAILY 12/05/17 Ketorolac Tromethamine 5 ml OP DAILY 12/05/17 Ofloxacin 0.3% Ophth Soln [Ocuflox 0.3% Eye Drops -] 5 ml OP DAILY 12/05/17 Prednisolone 1% Ophthalmic [Pred Forte 1% -] 5 ml OP DAILY 12/05/17 Family Disease History - Family Disease History Family Disease History: Diabetes: Father Review of Systems - Review of Systems Constitutional: reports: Malaise Eyes: reports: Blurred Vision HENT: reports: No Symptoms Neck: reports: No Symptoms Cardiovascular: reports: No Symptoms Respiratory: reports: No Symptoms Gastrointestinal: reports: Nausea Genitourinary: reports: Other (Polyuria,polydipsia) Musculoskeletal: reports: No Symptoms Neurological: reports: No Symptoms Endocrine: reports: No Symptoms, Unexplained Weight Loss (30 lbs in las month or so) Hematology/Lymphatic: reports: No Symptoms Physical Exam Vital Signs: Vital Signs Temperature 98.4 F 12/07/17 13:05 Pulse Rate 107 H 12/07/17 13:05 Respiratory Rate 22 12/07/17 13:05 Blood Pressure 135/68 12/07/17 13:05 O2 Sat by Pulse Oximetry (%) 96 12/07/17 09:00 Constitutional: Yes: No Distress, Calm Eyes: Yes: Conjunctiva Clear, EOM Intact HENT: Yes: Atraumatic, Normocephalic Neck: Yes: Supple, Trachea Midline Cardiovascular: Yes: Regular Rate and Rhythm Respiratory: Yes: Regular, CTA Bilaterally Gastrointestinal: Yes: Normal Bowel Sounds, Soft Extremities: Yes: WNL Edema: No Neurological: Yes: Alert, Oriented Labs: CBC, BMP 12/07/17 06:30 12/07/17 06:30 Assessment/Plan AP Uncontrolled blood sugar Hyperosmolar hyperglycemic state Chart reivewed Admission Labs: CO2 18, A Gap 30, BUN 57 Blood sugarn 1465 Calculated S Osm 370 Discussed need for compliance with meds at length. Has been skipping Insulin intermittently Explained risk of uncontrolled blood sugar including Loss of consciousness, Stroke, . Pt verbalizes understanding Increase Levemir 12 BID Novolog SS coverage Electrolyte replacement as necessary On D5 1/2 NS at 60 ml/hr Monitor CMP. May need to change IVF to NS if blood sugar remains high and potassium rises in view of high Creatinine. All questions of patient and family members at bedside answered. Will f/u
[2017-12-07 20:05] LABS: ALBUMIN 3.4 g/dl (3.4-5.0); ANION GAP 8 (8-16); BILIRUBIN,TOTAL 0.6 mg/dL (0.2-1.0); BLOOD UREA NITROGEN 46 mg/dL (7-18); CALCIUM 9.4 mg/dL (8.5-10.1); CHLORIDE 118 mmol/L (98-107); CO2 25 mmol/L (21-32); CREATININE 1.6 mg/dL (0.55-1.02); PHOSPHOROUS 2.1 mg/dL (2.5-4.9); SGPT/ALT 27 U/L (12-78); SODIUM 151 mmol/L (136-145); TOT PROT 7.3 g/dl (6.4-8.2)
[2017-12-07 20:06] LABS: ALK PHOS 123 U/L (45-117); MAGNESIUM 2.6 mg/dL (1.8-2.4); POTASSIUM 4.8 mmol/L (3.5-5.1); SGOT/AST 32 U/L (15-37)
[2017-12-07 20:07] LABS: GLUCOSE,RANDOM 453 mg/dL (74-106)
[2017-12-07] MEDS: DEXTROSE 5%-0.45% SALINE 1,000 ML IV SCH (21:00)
[2017-12-07] MEDS: ATORVASTATIN CA 40 MG TABLET (FP) PO SCH (21:39)
[2017-12-07] MEDS ORDERED: INSULIN DETEMIR 100 UNITS/ML MDV SQ SCH ×2 (22:00)
[2017-12-08] MEDS: INSULIN SLIDING SCALE (NOVOLOG) 1 VIAL SQ SCH ×4 (06:09→21:12)
[2017-12-08] MEDS: BRIMONIDINE TARTRATE 0.15% OPHTHALMIC 5 ML BOTTLE OD SCH ×3 (06:09→21:14)
[2017-12-08 06:45] LABS: BASO % 0.3 % (0-2.0); EOS % 0.8 % (0-4.5); HEMATOCRIT 39.6 % (32.4-45.2); HEMOGLOBIN 12.8 GM/dL (10.7-15.3); MCH 26.3 pg (25.7-33.7); MCHC 32.4 g/dl (32.0-36.0); MEAN CELL VOLUME 81.1 fl (80-96); MONO % 6.6 % (3.8-10.2); NEUT % 63.3 % (42.8-82.8); PLATELET COUNT 164 K/MM3 (134-434); RBC 4.88 M/mm3 (3.60-5.2); RDW 14.5 % (11.6-15.6); WHITE BLOOD COUNT 7.8 K/mm3 (4.0-10.0)
[2017-12-08] MEDS ORDERED: PT OWN MED DRAWER 7, Y5N ONE (06:48)
[2017-12-08 07:24] LABS: ALBUMIN 3.3 g/dl (3.4-5.0); ALK PHOS 117 U/L (45-117); ANION GAP 3 (8-16); BLOOD UREA NITROGEN 33 mg/dL (7-18); CALCIUM 9.5 mg/dL (8.5-10.1); CHLORIDE 121 mmol/L (98-107); CO2 31 mmol/L (21-32); CREATININE 1.2 mg/dL (0.55-1.02); GLUCOSE,RANDOM 285 mg/dL (74-106); POTASSIUM 3.9 mmol/L (3.5-5.1); SGOT/AST 26 U/L (15-37); SGPT/ALT 25 U/L (12-78); SODIUM 155 mmol/L (136-145); TOT PROT 6.7 g/dl (6.4-8.2)
[2017-12-08] MEDS: CHOLECALCIFEROL (VITAMIN D3) 1,000 UNIT TABLET (FP) PO SCH (09:52)
[2017-12-08] MEDS: OFLOXACIN 0.3% OPHTHALMIC SOLUTION 5 ML BOTTLE OU SCH (09:53)
[2017-12-08] MEDS: HEPARIN NA (PORCINE) 5,000 UNITS/ML 1ML VIAL SQ SCH ×2 (09:53→21:13)
[2017-12-08] MEDS: KETOROLAC TROMETHAMINE 0.5% 5 ML BOTTLE OPTHALMIC OU SCH (09:53)
--- NOTE | 2017-12-08 09:55 | PN ---
Progress Note, Physician History of Present Illness: pt seen/ examined feels better no distress afebrile nausea better endo consult noted / appreciated - Current Medication List Current Medications: Active Medications Atorvastatin Calcium (Lipitor -) 40 mg PO HS [facility] Last Admin: 12/07/17 21:39 Dose: 40 mg Brimonidine Tartrate (Alphagan 0.15% -) 1 drop OD TID [facility] Last Admin: 12/08/17 06:09 Dose: 1 drop Cholecalciferol (Vitamin D3 -) 1,000 unit PO DAILY [facility] Last Admin: 12/07/17 09:44 Dose: 1,000 unit Heparin Sodium (Porcine) (Heparin -) 5,000 unit SQ BID [facility] Last Admin: 12/07/17 21:39 Dose: 5,000 unit Dextrose/Sodium Chloride (D5-1/2ns -) 1,000 mls @ 60 mls/hr IV ASDIR [facility] Last Admin: 12/07/17 21:00 Dose: 60 mls/hr Insulin Aspart (Novolog Vial Sliding Scale -) 1 vial SQ HS [facility] PRN Reason: Protocol Last Admin: 12/07/17 21:39 Dose: 8 units Insulin Aspart (Novolog Vial Sliding Scale -) 1 vial SQ TIDAC [facility] PRN Reason: Protocol Last Admin: 12/08/17 06:09 Dose: 8 units Insulin Detemir (Levemir Vial) 20 units SQ HS [facility] Last Admin: 12/07/17 21:39 Dose: 20 units Ketorolac Tromethamine (Ketorolac Tromethamine) 1 drop OU DAILY [facility] Last Admin: 12/07/17 09:44 Dose: 1 drop Meclizine HCl (Antivert -) 25 mg PO Q8H PRN PRN Reason: DIZZINESS Last Admin: 12/07/17 14:01 Dose: 25 mg Ofloxacin (Ocuflox 0.3% Eye Drops -) 1 drop OU DAILY [facility] Last Admin: 12/07/17 09:44 Dose: 1 drop Ondansetron HCl (Zofran Injection) 4 mg IVPUSH Q8H PRN PRN Reason: NAUSEA AND/OR VOMITING Last Admin: 12/07/17 14:01 Dose: 4 mg - Objective Vital Signs: Vital Signs Temperature 97.9 F 12/08/17 08:49 Pulse Rate 82 12/08/17 08:49 Respiratory Rate 18 12/08/17 08:49 Blood Pressure 127/56 12/08/17 08:49 O2 Sat by Pulse Oximetry (%) 95 12/08/17 08:47 Constitutional: Yes: No Distress, Calm Eyes: Yes: Conjunctiva Clear Neck: Yes: Supple Cardiovascular: Yes: Regular Rate and Rhythm Respiratory: Yes: CTA Bilaterally. No: Stridor Gastrointestinal: Yes: Normal Bowel Sounds, Soft Edema: No Neurological: Yes: Alert Psychiatric: Yes: Alert Labs: CBC, BMP 12/08/17 06:30 12/08/17 06:30 INR, PTT INR 1.06 (0.82-1.09) 12/05/17 23:20 Problem List - Problems (1) DKA (diabetic ketoacidoses) Code(s): E13.10 - OTH DIABETES MELLITUS WITH KETOACIDOSIS WITHOUT COMA Qualifiers: Diabetes mellitus type: type 2 Diabetes mellitus complication detail: without coma Qualified Code(s): E11.10 - Type 2 diabetes mellitus with ketoacidosis without coma Assessment/Plan clinically better monitor . continue present care f/u lytes compliance stressed again discussed with nursing staff d/c tele will follow if stable- anticipate discharge late today or tomorrow discussed with pt/ agreement.
[2017-12-08] MEDS ORDERED: INSULIN (NOVOLOG) ASPART 100 UNITS/ML 10ML VIAL ONE (11:35)
--- NOTE | 2017-12-08 12:53 | EKG ---
Test Reason : Blood Pressure : / mmHG Vent. Rate : 116 BPM Atrial Rate : 116 BPM P-R Int : 112 ms QRS Dur : 084 ms QT Int : 350 ms P-R-T Axes : 053 -08 059 degrees QTc Int : 486 ms SINUS TACHYCARDIA RIGHT ATRIAL ENLARGEMENT VOLTAGE CRITERIA FOR LEFT VENTRICULAR HYPERTROPHY INFERIOR INFARCT , AGE UNDETERMINED ABNORMAL ECG WHEN COMPARED WITH ECG OF 18-JAN-2013 11:35, VENT. RATE HAS INCREASED BY 39 BPM INFERIOR INFARCT IS NOW PRESENT ST NOW DEPRESSED IN LATERAL LEADS T WAVE INVERSION NO LONGER EVIDENT IN INFERIOR LEADS Confirmed by CAMDEN OCAMPO MD ([id number]) on 12/08/2017 12:53:11 PM Referred By: Confirmed By:CAMDEN OCAMPO MD
--- NOTE | 2017-12-08 15:12 | PN ---
Progress Note (short form) - Note Progress Note: Feels better No N/V Still with poor apetite Vital Signs Period Temp Pulse Resp BP Sys/Tiwari Pulse Ox Last 24 Hr 97.6 F-99.2 F 82-102 18-20 114-148/56-87 95 PE: AOx3 Neck: Supple, No JVD HEENT: PERRL, EOMI Lungs: CTA Abd: Benign CVS: S1S2 EXt: No edema Neuro: no focal deficit CMP Sodium 155 mmol/L (136-145) H 12/08/17 06:30 Potassium 3.9 mmol/L (3.5-5.1) 12/08/17 06:30 Chloride 121 mmol/L (98-107) H 12/08/17 06:30 Carbon Dioxide 31 mmol/L (21-32) 12/08/17 06:30 Anion Gap 3 (8-16) L 12/08/17 06:30 BUN 33 mg/dL (7-18) H 12/08/17 06:30 Creatinine 1.2 mg/dL (0.55-1.02) H 12/08/17 06:30 Creat Clearance w eGFR 44.29 (>60) 12/08/17 06:30 POC Glucometer 334 UNITS (80-120) 12/08/17 11:28 Random Glucose 285 mg/dL (74-106) H 12/08/17 06:30 Hemoglobin A1c % 13.4 % (4.8-6.0) H 12/06/17 04:30 Serum Osmolality 389 mosm/kg (278-305) H 12/06/17 04:30 Calcium 9.5 mg/dL (8.5-10.1) 12/08/17 06:30 Phosphorus 2.1 mg/dL (2.5-4.9) L 12/07/17 18:45 Magnesium 2.6 mg/dL (1.8-2.4) H 12/07/17 18:45 Total Bilirubin 1.0 mg/dL (0.2-1.0) D 12/08/17 06:30 AST 26 U/L (15-37) 12/08/17 06:30 ALT 25 U/L (12-78) 12/08/17 06:30 Alkaline Phosphatase 117 U/L (45-117) 12/08/17 06:30 Creatine Kinase 173 IU/L (26-192) 12/05/17 23:20 Creatine Kinase Index 0.6 % (0.0-5.0) 12/05/17 23:20 CK-MB (CK-2) 1.070 ng/mL (0.5-3.6) 12/05/17 23:20 Troponin I < 0.02 ng/ml (0.00-0.05) 12/05/17 23:20 B-Natriuretic Peptide 76.58 pg/ml (5-125) 12/05/17 23:20 Total Protein 6.7 g/dl (6.4-8.2) 12/08/17 06:30 Albumin 3.3 g/dl (3.4-5.0) L 12/08/17 06:30 Current Medications Generic Name Dose Route Start Last Admin Trade Name Freq PRN Reason Stop Dose Admin Atorvastatin Calcium 40 mg 12/06/17 22:00 12/07/17 21:39 Lipitor - PO 40 mg HS WILNER Administration Brimonidine Tartrate 1 drop 12/06/17 06:00 12/08/17 14:48 Alphagan 0.15% - OD 1 drop TID [facility]IL[facility] Administration Cholecalciferol 1,000 unit 12/06/17 10:00 12/08/17 09:52 Vitamin D3 - PO 1,000 unit DAILY WILNER Administration Heparin Sodium (Porcine) 5,000 unit 12/06/17 10:00 12/08/17 09:53 Heparin - SQ 5,000 unit BID WILNER Administration Dextrose/Sodium Chloride 1,000 mls @ 60 mls/hr 12/07/17 20:45 12/07/17 21:00 D5-1/2ns - IV 60 mls/hr ASDIR WILNER Administration Insulin Aspart 1 vial 12/07/17 22:00 12/07/17 21:39 Novolog Vial Sliding Scale - SQ 8 units HS WILNER Administration Protocol Insulin Aspart 1 vial 12/07/17 16:30 12/08/17 11:43 Novolog Vial Sliding Scale - SQ 10 units TIDAC WILNER Administration Protocol Insulin Detemir 20 units 12/07/17 22:00 12/07/17 21:39 Levemir Vial SQ 20 units HS WILNER Administration Ketorolac Tromethamine 1 drop 12/06/17 10:00 12/08/17 09:53 Ketorolac Tromethamine OU 1 drop DAILY WILNER Administration Meclizine HCl 25 mg 12/06/17 05:14 12/07/17 14:01 Antivert - PO 25 mg Q8H PRN Administration DIZZINESS Ofloxacin 1 drop 12/06/17 10:00 12/08/17 09:53 Ocuflox 0.3% Eye Drops - OU 1 drop DAILY WILNER Administration Ondansetron HCl 4 mg 12/07/17 13:56 12/07/17 14:01 Zofran Injection IVPUSH 4 mg Q8H PRN Administration NAUSEA AND/OR VOMITING AP Uncontrolled blood sugar Hyperosmolar hyperglycemic state Chart reivewed Admission Labs: CO2 18, A Gap 30, BUN 57 Blood sugarn 1465 Calculated S Osm 370 Discussed need for compliance with meds at length. Has been skipping Insulin intermittently Explained risk of uncontrolled blood sugar including Loss of consciousness, Stroke, . Pt verbalizes understanding Increase Levemir 28 QHS Increase Novolog SS coverage Electrolyte replacement as necessary On D5 1/2 NS at 60 ml/hr Monitor CMP. May need to change IVF to NS if blood sugar remains high and potassium replacement as necessary with improving creatinine All questions of patient and family members at bedside answered. Will f/u
[2017-12-08 19:11] LABS: ALBUMIN 3.3 g/dl (3.4-5.0); ALK PHOS 117 U/L (45-117); ANION GAP 4 (8-16); BILIRUBIN,TOTAL 0.8 mg/dL (0.2-1.0); BLOOD UREA NITROGEN 28 mg/dL (7-18); CALCIUM 9.6 mg/dL (8.5-10.1); CHLORIDE 116 mmol/L (98-107); CO2 29 mmol/L (21-32); POTASSIUM 3.9 mmol/L (3.5-5.1); SGOT/AST 27 U/L (15-37); SGPT/ALT 28 U/L (12-78); SODIUM 149 mmol/L (136-145); TOT PROT 6.7 g/dl (6.4-8.2)
[2017-12-08 19:16] LABS: GLUCOSE,RANDOM 354 mg/dL (74-106)
[2017-12-08] MEDS: ATORVASTATIN CA 40 MG TABLET (FP) PO SCH (21:13)
[2017-12-08] MEDS ORDERED: INSULIN DETEMIR 100 UNITS/ML MDV SQ SCH (22:00)
[2017-12-09] MEDS: DEXTROSE 5%-0.45% SALINE 1,000 ML IV SCH (05:10)
[2017-12-09] MEDS: BRIMONIDINE TARTRATE 0.15% OPHTHALMIC 5 ML BOTTLE OD SCH ×2 (05:11→13:57)
[2017-12-09] MEDS: INSULIN SLIDING SCALE (NOVOLOG) 1 VIAL SQ SCH ×2 (06:08→11:17)
[2017-12-09] MEDS ORDERED: PT OWN MED DRAWER 7, Y5N ONE (09:15)
[2017-12-09] MEDS: KETOROLAC TROMETHAMINE 0.5% 5 ML BOTTLE OPTHALMIC OU SCH (09:32)
[2017-12-09] MEDS: HEPARIN NA (PORCINE) 5,000 UNITS/ML 1ML VIAL SQ SCH (09:32)
[2017-12-09] MEDS: OFLOXACIN 0.3% OPHTHALMIC SOLUTION 5 ML BOTTLE OU SCH (09:33)
[2017-12-09] MEDS: CHOLECALCIFEROL (VITAMIN D3) 1,000 UNIT TABLET (FP) PO SCH (09:35)
--- NOTE | 2017-12-09 11:53 | PN ---
Progress Note, Physician - Current Medication List Current Medications: Active Medications Atorvastatin Calcium (Lipitor -) 40 mg PO HS [facility] Last Admin: 12/08/17 21:13 Dose: 40 mg Brimonidine Tartrate (Alphagan 0.15% -) 1 drop OD TID [facility] Last Admin: 12/09/17 05:11 Dose: 1 drop Cholecalciferol (Vitamin D3 -) 1,000 unit PO DAILY [facility] Last Admin: 12/09/17 09:35 Dose: 1,000 unit Heparin Sodium (Porcine) (Heparin -) 5,000 unit SQ BID [facility] Last Admin: 12/09/17 09:32 Dose: 5,000 unit Dextrose/Sodium Chloride (D5-1/2ns -) 1,000 mls @ 60 mls/hr IV ASDIR [facility] Last Admin: 12/09/17 05:10 Dose: 60 mls/hr Insulin Aspart (Novolog Vial Sliding Scale -) 1 vial SQ HS [facility] PRN Reason: Protocol Last Admin: 12/08/17 21:12 Dose: 4 units Insulin Aspart (Novolog Vial Sliding Scale -) 1 vial SQ TIDAC [facility] PRN Reason: Protocol Last Admin: 12/09/17 11:17 Dose: 14 units Insulin Detemir (Levemir Vial) 28 units SQ HS [facility] Last Admin: 12/08/17 21:13 Dose: 28 units Ketorolac Tromethamine (Ketorolac Tromethamine) 1 drop OU DAILY [facility] Last Admin: 12/09/17 09:32 Dose: 1 drop Meclizine HCl (Antivert -) 25 mg PO Q8H PRN PRN Reason: DIZZINESS Last Admin: 12/07/17 14:01 Dose: 25 mg Ofloxacin (Ocuflox 0.3% Eye Drops -) 1 drop OU DAILY [facility] Last Admin: 12/09/17 09:33 Dose: 1 drop Ondansetron HCl (Zofran Injection) 4 mg IVPUSH Q8H PRN PRN Reason: NAUSEA AND/OR VOMITING Last Admin: 12/07/17 14:01 Dose: 4 mg - Objective Vital Signs: Vital Signs Temperature 98.0 F 12/09/17 08:06 Pulse Rate 90 12/09/17 08:06 Respiratory Rate 20 12/09/17 08:10 Blood Pressure 104/59 12/09/17 08:06 O2 Sat by Pulse Oximetry (%) 98 12/09/17 08:10 Labs: CBC, BMP 12/08/17 06:30 12/08/17 17:56 INR, PTT INR 1.06 (0.82-1.09) 12/05/17 23:20
--- NOTE | 2017-12-09 12:00 | PN ---
Progress Note (short form) - Note Progress Note: Feels better No N/V Still with poor apetite Vital Signs Period Temp Pulse Resp BP Sys/Tiwari Pulse Ox Last 24 Hr 97.8 F-98.9 F 71-91 20-20 104-128/53-73 98-98 PE: AOx3 Neck: Supple, No JVD HEENT: PERRL, EOMI Lungs: CTA Abd: Benign CVS: S1S2 EXt: No edema Neuro: no focal deficit CMP Sodium 149 mmol/L (136-145) H 12/08/17 17:56 Potassium 3.9 mmol/L (3.5-5.1) 12/08/17 17:56 Chloride 116 mmol/L (98-107) H 12/08/17 17:56 Carbon Dioxide 29 mmol/L (21-32) 12/08/17 17:56 Anion Gap 4 (8-16) L 12/08/17 17:56 BUN 28 mg/dL (7-18) H 12/08/17 17:56 Creatinine 1.0 mg/dL (0.55-1.02) 12/08/17 17:56 Creat Clearance w eGFR 54.66 (>60) 12/08/17 17:56 POC Glucometer 310 UNITS (80-120) 12/09/17 11:06 Random Glucose 354 mg/dL (74-106) H* 12/08/17 17:56 Hemoglobin A1c % 13.4 % (4.8-6.0) H 12/06/17 04:30 Serum Osmolality 389 mosm/kg (278-305) H 12/06/17 04:30 Calcium 9.6 mg/dL (8.5-10.1) 12/08/17 17:56 Phosphorus 2.1 mg/dL (2.5-4.9) L 12/07/17 18:45 Magnesium 2.6 mg/dL (1.8-2.4) H 12/07/17 18:45 Total Bilirubin 0.8 mg/dL (0.2-1.0) 12/08/17 17:56 AST 27 U/L (15-37) 12/08/17 17:56 ALT 28 U/L (12-78) 12/08/17 17:56 Alkaline Phosphatase 117 U/L (45-117) 12/08/17 17:56 Creatine Kinase 173 IU/L (26-192) 12/05/17 23:20 Creatine Kinase Index 0.6 % (0.0-5.0) 12/05/17 23:20 CK-MB (CK-2) 1.070 ng/mL (0.5-3.6) 12/05/17 23:20 Troponin I < 0.02 ng/ml (0.00-0.05) 12/05/17 23:20 B-Natriuretic Peptide 76.58 pg/ml (5-125) 12/05/17 23:20 Total Protein 6.7 g/dl (6.4-8.2) 12/08/17 17:56 Albumin 3.3 g/dl (3.4-5.0) L 12/08/17 17:56 Current Medications Generic Name Dose Route Start Last Admin Trade Name Freq PRN Reason Stop Dose Admin Atorvastatin Calcium 40 mg 12/06/17 22:00 12/08/17 21:13 Lipitor - PO 40 mg HS WILNER Administration Brimonidine Tartrate 1 drop 12/06/17 06:00 12/09/17 05:11 Alphagan 0.15% - OD 1 drop TID [facility] Administration Cholecalciferol 1,000 unit 12/06/17 10:00 12/09/17 09:35 Vitamin D3 - PO 1,000 unit DAILY [facility] Administration Heparin Sodium (Porcine) 5,000 unit 12/06/17 10:00 12/09/17 09:32 Heparin - SQ 5,000 unit BID [facility] Administration Dextrose/Sodium Chloride 1,000 mls @ 60 mls/hr 12/07/17 20:45 12/09/17 05:10 D5-1/2ns - IV 60 mls/hr ASDIR [facility] Administration Insulin Aspart 1 vial 12/07/17 22:00 12/08/17 21:12 Novolog Vial Sliding Scale - SQ 4 units HS [facility]IL[facility] Administration Protocol Insulin Aspart 1 vial 12/08/17 15:15 12/09/17 11:17 Novolog Vial Sliding Scale - SQ 14 units TIDAC [facility] Administration Protocol Insulin Detemir 28 units 12/08/17 22:00 12/08/17 21:13 Levemir Vial SQ 28 units HS [facility]IL[facility] Administration Ketorolac Tromethamine 1 drop 12/06/17 10:00 12/09/17 09:32 Ketorolac Tromethamine OU 1 drop DAILY [facility] Administration Meclizine HCl 25 mg 12/06/17 05:14 12/07/17 14:01 Antivert - PO 25 mg Q8H PRN Administration DIZZINESS Ofloxacin 1 drop 12/06/17 10:00 12/09/17 09:33 Ocuflox 0.3% Eye Drops - OU 1 drop DAILY [facility] Administration Ondansetron HCl 4 mg 12/07/17 13:56 12/07/17 14:01 Zofran Injection IVPUSH 4 mg Q8H PRN Administration NAUSEA AND/OR VOMITING AP Uncontrolled blood sugar Hyperosmolar hyperglycemic state Chart reivewed Admission Labs: CO2 18, A Gap 30, BUN 57 Blood sugarn 1465 Calculated S Osm 370 Increase Levemir 34 QHS Continue Novolog SS coverage Electrolyte replacement as necessary Change IVF to 1/2 NS at 60 ml/hr Monitor CMP. Will f/u
--- NOTE | 2017-12-09 12:08 | DS ---
Physical Examination Vital Signs: Vital Signs Temperature 98.0 F 12/09/17 08:06 Pulse Rate 90 12/09/17 08:06 Respiratory Rate 20 12/09/17 08:10 Blood Pressure 104/59 12/09/17 08:06 O2 Sat by Pulse Oximetry (%) 98 12/09/17 08:10 Labs: CBC, BMP 12/08/17 06:30 12/08/17 17:56 Discharge Summary Reason For Visit: DIABETIC KETOACIDOSIS Current Active Problems DKA (diabetic ketoacidoses) (Acute) - Instructions Referrals: Naima Conde MD [Primary Care Provider] - Shital Sheikh MD [Staff Physician] - - Home Medications Comprehensive Discharge Medication List: Ambulatory Orders Atorvastatin Ca [Lipitor] 40 mg PO HS #0 tablet 01/19/13 Cholecalciferol (Vitamin D3) [Vitamin D3 -] 1,000 unit PO DAILY 06/13/17 Lisinopril [Prinivil -] 5 mg PO DAILY 06/13/17 Brimonidine Tartrate [Alphagan 0.15% -] 1 drop OD TID 08/07/17 Glipizide [Glucotrol -] 5 mg PO TID 08/07/17 Meclizine HCl 25 mg PO PRN PRN 08/07/17 Brimonidine Tartrate/Timolol [Combigan 0.2%-0.5% Eye Drops] 10 ml OP DAILY 12/05 Ketorolac Tromethamine 5 ml OP DAILY 12/05/17 Ofloxacin 0.3% Ophth Soln [Ocuflox -] 5 ml OP DAILY 12/05/17 Prednisolone 1% Ophthalmic [Pred Forte 1% -] 5 ml OP DAILY 12/05/17 Insulin (Levemir) [Levemir Vial] 34 units SQ HS #100 ml 12/09/17 Polyethylene Glycol 3350 [Miralax (For Daily Use) -] 17 gm PO DAILY #1 bottle
[2017-12-09] MEDS ORDERED: SODIUM CHLORIDE 0.45% 1,000 ML IV SCH (12:15)
[2017-12-09] MEDS ORDERED: POLYETHYLENE GLYCOL 3350 119 GM BTL PO ONE (13:15)
[2017-12-09 14:11] VITALS: BP 130/77; PULSE 94; TEMP 98.2
[2017-12-09] MEDS ORDERED: INSULIN DETEMIR 100 UNITS/ML MDV SQ SCH (22:00)
== END 2017-12-09 16:18 | disposition home or self-care (01) | DRG 638 ==
LOC: JER 22:47 → JERBED 12-06 02:20 → UNDOADMIN 12-06 02:30 → JERBED 12-06 02:30 → J4W 12-06 21:11
PROVIDERS: ADMIT Internal Medicine; ATTEND Internal Medicine
DX: E11.10 Type 2 diabetes mellitus with ketoacidosis without coma (principal); N17.9 Acute kidney failure, unspecified; E87.0 Hyperosmolality and hypernatremia; D72.829 Elevated white blood cell count, unspecified; I10 Essential (primary) hypertension; E78.5 Hyperlipidemia, unspecified; R00.0 Tachycardia, unspecified; H40.9 Unspecified glaucoma; E86.0 Dehydration
CPT/HCPCS: 36415; 71045-TC-FY; 76775-TC; 80048; 80053; 81003; 82009; 82550; 82553; 82570; 82803; 82962; 83036; 83735; 83880; 83930; 83935; 84100; 84300; 84484; 85025; 85610; 85730; 87804; 87899; 93005; 93010; 93306-TC; 97116-GP; 97161-GP; 99285-25; J1644; J7030

== ENCOUNTER 2019-09-23 16:37 | Inpatient (IN) | payer OTHER, BC ==
[2019-09-23] MEDS ORDERED: SODIUM CHLORIDE 1,000 ML IV STA (17:02)
--- NOTE | 2019-09-23 17:02 | PDOC ---
Rapid Medical Evaluation Time Seen by Provider: 09/23/19 16:58 Medical Evaluation: Allergies Allergy/AdvReac Type Severity Reaction Status Date / Time metformin AdvReac "NAUSEOUS" Verified 09/19/17 12:05 09/23/19 16:59 CC: high sugar Pt is a 74 y/o female who was sent to the ED by her PMD for high blood sugars in office today. Pt has polydipsia and polyuria. Brief exam: non-toxic appearing, no Kussmaul's respirations appreciated Orders: labs, ekg, fluids To ED for further evaluation Discharge Disposition - Diagnosis High blood sugar - Referrals - Patient Instructions - Post Discharge Activity
[2019-09-23 17:33] LABS: PH,URINE 5.5 (5.0-8.0); URINE APPEARANCE CLEAR; URINE BILIRUBIN NEGATIVE (NEGATIVE); URINE COLOR YELLOW; URINE GLUCOSE (UA) 3+ (NEGATIVE); URINE KETONE NEGATIVE (NEGATIVE); URINE LEUK ESTERASE NEGATIVE (NEGATIVE); URINE NITRITE NEGATIVE (NEGATIVE); URINE PROTEIN NEGATIVE (NEGATIVE); URINE UROBILINOGEN 0.2 mg/dL (0.2-1.0)
[2019-09-23 17:34] LABS: BASO % 0.9 % (0-2.0); EOS % 0.4 % (0-4.5); HEMOGLOBIN 12.6 GM/dL (10.7-15.3); LYMPH % 19.8 % (8-40); MCH 26.3 pg (25.7-33.7); MCHC 32.4 g/dl (32.0-36.0); MEAN CELL VOLUME 81.3 fl (80-96); MEAN PLT VOLUME 9.7 fl (7.5-11.1); MONO % 7.2 % (3.8-10.2); NEUT % 71.7 % (42.8-82.8); PLATELET COUNT 265 K/MM3 (134-434); WHITE BLOOD COUNT 7.3 K/mm3 (4.0-10.0)
--- NOTE | 2019-09-23 17:52 | PDOC ---
History of Present Illness - General Chief Complaint: Blood Sugar Problem Stated Complaint: SENT BY DOCTOR Time Seen by Provider: 09/23/19 16:58 History Source: Patient Exam Limitations: No Limitations - History of Present Illness Initial Comments: Caitlin Okeefe is a 74 yo F w a hx of IDDM, HTN, HLD, cataracts and glaucoma who presents to the [facility] er sent in by Dr. Naima Conde to be admitted for elevated blood glucose. Dr. Conde called and gave report stating that the patient had a HbA1c of 15.4, a glucose of 576 in clinic, and did not have ketones in clinic. Patient states she has felt extremely weak over the past 5 days. She is usually compliant with her insulin but today she didn't take it because she felt too fatigued. She denies recent febrile symptoms. She states her abdomen is uncomfortable bc she has been giving herself insulin shots. Other than where she gets the shots she denies having abdominal pain. She denies any nausea or vomiting. Denies diarrhea or constipation. PCP: Naima Conde Endo: Dr. Dos Santos Neuro: Dr. Molina PSH: Cataract surgery x2, 1 eye in aug 2017 and second eye in sep 2017. Hysterectomy when she was younger due to "heavy bleeding" Social Hx: , lives with and dog. has two adult daughters. Former mild smoker. Denies alcohol or illicit drug usage Allergies: NKA, NKDA Past History - Past Medical History Allergies/Adverse Reactions: Allergies Allergy/AdvReac Type Severity Reaction Status Date / Time metformin AdvReac "NAUSEOUS" Verified 09/23/19 17:02 Home Medications: Ambulatory Orders Aspirin [Aspirin EC] 81 mg PO DAILY 09/23/19 Atorvastatin Calcium 80 mg PO HS 09/23/19 Biotin 1,000 mcg PO DAILY 09/23/19 Brimonidine Tartrate [Alphagan P] 1 drop OU TID 09/23/19 Cholecalciferol (Vitamin D3) [Vitamin D3 -] 1,000 unit PO DAILY 09/23/19 Dorzolamide HCl/Timolol Maleat [Dorzolamide-Timolol Eye Drops] 1 drop OU BID Ezetimibe [Zetia -] 10 mg PO DAILY 09/23/19 Glipizide [Glipizide ER] 5 mg PO AC 09/23/19 Hydrochlorothiazide [Hctz -] 12.5 mg PO DAILY 09/23/19 Insulin Detemir [Levemir Flextouch] 44 unit SQ BID 09/23/19 Insulin Lispro [Humalog] unit SQ ASDIR 09/23/19 Lisinopril [Prinivil] 10 mg PO DAILY 09/23/19 Valsartan/Hydrochlorothiazide [Valsartan-Hctz 320-12.5 mg Tab] 1 each PO DAILY 09/23/19 Varicella-Zoster Ge/As01b/Pf [Shingrix Vial Kit] 1 dose IM ASDIR 09/23/19 Anemia: No Asthma: No Cancer: No Cardiac Disorders: No CVA: No COPD: No CHF: No Dementia: No Diabetes: Yes GI Disorders: No Disorders: No HTN: Yes Hypercholesterolemia: Yes Liver Disease: No Seizures: No Thyroid Disease: No - Surgical History Abdominal Surgery: No Appendectomy: No Cardiac Surgery: No Cholecystectomy: No Lung Surgery: No Neurologic Surgery: No Orthopedic Surgery: No - Immunization History Immunization Up to Date: Yes - Psycho Social/Smoking Cessation Hx Smoking Status: No Smoking History: Never smoked Have you smoked in the past 12 months: No Number of Cigarettes Smoked Daily: 0 If you are a former smoker, when did you quit?: 21YRS OLD Hx Alcohol Use: No Drug/Substance Use Hx: No Substance Use Type: None Hx Substance Use Treatment: No Review of Systems - Review of Systems Able to Perform ROS?: Yes Comments:: CONSTITUTIONAL: Present: fatigue Absent: fever, no chills EYES: Absent: visual changes ENT: Absent: ear pain, no sore throat CARDIOVASCULAR: Absent: chest pain, no palpitations RESPIRATORY: Absent: cough, no SOB GI: Absent: abdominal pain, no nausea, no vomiting, no constipation, no diarrhea GENITOURINARY: Absent: dysuria, no frequency, no hematuria MUSKULOSKELETAL: Absent: back pain, no arthralgia, no myalgia SKIN: Absent: rash NEURO: Absent: headache *Physical Exam - Vital Signs Last Vital Signs Temp Pulse Resp BP Pulse Ox 98 F 90 18 115/80 99 09/23/19 17:06 09/23/19 17:06 09/23/19 17:06 09/23/19 17:06 09/23/19 17:06 - Physical Exam GENERAL: Well-appearing, well-nourished. No apparent distress. HEENT: Normocephalic, atraumatic. PERRL, EOM intact. CARDIOVASCULAR: Normal S1, S2. Regular rate and rhythm. PULMONARY: No evidence of respiratory distress. Lungs clear to auscultation bilaterally. No wheezing, rales or rhonchi. ABDOMEN: Soft, non-distended, non-tender. EXTREMITIES: Normal ROM in all four extremities. No gross deformities. SKIN: Warm, dry. No rash NEUROLOGICAL: No focal neurological deficits. ED Treatment Course - LABORATORY CBC & Chemistry Diagram: 09/23/19 17:18 09/23/19 17:18 - ADDITIONAL ORDERS Additional order review: Laboratory Results 09/23/19 17:18 Urine Color Yellow Urine Appearance Clear Urine pH 5.5 Ur Specific [place] 1.031 Urine Protein Negative Urine Glucose (UA) 3+ H Urine Ketones Negative Urine Blood Negative Urine Nitrite Negative Urine Bilirubin Negative Urine Urobilinogen 0.2 Ur Leukocyte Esterase Negative 09/23/19 17:18 RBC 4.80 MCV 81.3 MCHC 32.4 RDW 14.0 MPV 9.7 Neutrophils % 71.7 Lymphocytes % 19.8 D Monocytes % 7.2 Eosinophils % 0.4 Basophils % 0.9 Medical Decision Making - Medical Decision Making Caitlin Okeefe is a 74 yo F w a hx of IDDM, HTN, HLD, cataracts and glaucoma who presents to the [facility] er sent in by Dr. Naima Conde for elevated blood glucose. Dr. Conde called and gave report stating that the patient had a HbA1c of 15.4, a glucose of 576 in clinic, and did not have ketones in clinic. Vital Signs Temp Pulse Resp BP Pulse Ox 98 F 90 18 115/80 99 09/23/19 17:06 09/23/19 17:06 09/23/19 17:06 09/23/19 17:06 09/23/19 17:06 DDx IBNLT: DKA, HHNS, incidental hyperglycemia, medication non-compliance, electrolyte/metabolic disturbance, anemia, UTI Plan: Labs, urine, EKG, IV hydration, +/- insulin, re-assess Labs: CMP Sodium 125 mmol/L (136-145) L 09/23/19 17:18 Potassium 5.3 mmol/L (3.5-5.1) H 09/23/19 17:18 Chloride 89 mmol/L (98-107) L 09/23/19 17:18 Carbon Dioxide 26 mmol/L (21-32) 09/23/19 17:18 Anion Gap 10 MMOL/L (8-16) 09/23/19 17:18 BUN 39.6 mg/dL (7-18) H 09/23/19 17:18 Creatinine 2.0 mg/dL (0.55-1.3) H 09/23/19 17:18 Est GFR (CKD-EPI)AfAm 28.00 09/23/19 17:18 Est GFR (CKD-EPI)NonAf 24.16 09/23/19 17:18 Random Glucose 781 mg/dL (74-106) H* 09/23/19 17:18 Calcium 9.8 mg/dL (8.5-10.1) 09/23/19 17:18 Total Bilirubin 1.0 mg/dL (0.2-1) 09/23/19 17:18 AST 14 U/L (15-37) L 09/23/19 17:18 ALT 27 U/L (13-61) 09/23/19 17:18 Alkaline Phosphatase 197 U/L (45-117) H 09/23/19 17:18 Total Protein 7.8 g/dl (6.4-8.2) 09/23/19 17:18 Albumin 4.0 g/dl (3.4-5.0) 09/23/19 17:18 Urine: 3+ glucosuria - Starting patient on 8 units of insulin - will repeat bmp in 3 hours Dispo: Med/surg Discharge - Discharge Information Problems reviewed: Yes Clinical Impression/Diagnosis: High blood sugar, Hyperkalemia Condition: Stable - Admission Yes - Follow up/Referral Referrals: Naima Conde MD [Primary Care Provider] - - Patient Discharge Instructions - Post Discharge Activity
[2019-09-23] MEDS ORDERED: SODIUM CHLORIDE 0.9% 500 ML INFUS.BAG IV ONE ×2 (17:58→19:27)
[2019-09-23 18:06] LABS: BLOOD UREA NITROGEN 39.6 mg/dL (7-18); CALCIUM 9.8 mg/dL (8.5-10.1); POTASSIUM 5.3 mmol/L (3.5-5.1); TOT PROT 7.8 g/dl (6.4-8.2)
[2019-09-23 18:17] LABS: VENOUS PC02 46.1 mmHg (38-52); VENOUS PH 7.39 (7.31-7.41)
[2019-09-23] MEDS ORDERED: INSULIN REGULAR HUMAN 100 UNITS/ML *VIAL IVPUSH ONE (18:26)
[2019-09-23 18:47] LABS: VENOUS PO2 < 49 mmHg (28-48)
[2019-09-23] MEDS ORDERED: INSULIN (NOVOLOG) ASPART 100 UNITS/ML 10ML VIAL ONE (18:58)
[2019-09-23] MEDS ORDERED: INSULIN REGULAR HUMAN 100 UNITS/ML *VIAL ONE (19:01)
--- NOTE | 2019-09-23 19:06 | PDOC ---
Attending Attestation - Resident Resident Name: Dawood Gaitan - HPI HPI: 09/24/19 10:19 Pt presents to the ED complaining of Polydipsia, polyuria, generalized malaise, and "sweet smelling" urine. States that she did not take her entire dose of insulin today because she did not feel well, although she reports that she has been otherwise complaint with her insulin. - Physicial Exam PE: 09/24/19 10:33 Agree with resident exam. Pt is alert and oriented x 3 and in no acute distress. lungs are clear. Heart has regular rate and rhytm. Abdomen soft, non tender, non distended. - Medical Decision Making 09/24/19 10:46 Pt presents to the ED with hyperglycemia. Labs do not indicate DKA. WIll treat with fluid and insulin and admit for severe hyperglycemia.
[2019-09-23] MEDS ORDERED: SODIUM CHLORIDE 1,000 ML IV SCH (20:00)
[2019-09-23] MEDS ORDERED: INSULIN (NOVOLOG) ASPART 100 UNITS/ML 10ML VIAL SQ ONE (21:52)
[2019-09-23] MEDS ORDERED: PATIENT'S OWN MEDICATION (NON-FORMULARY) (Dorzolamide Hcl/Timolol Maleat [Dorzolamide-Timo OU SCH (22:00)
--- NOTE | 2019-09-23 22:13 | HP ---
CHIEF COMPLAINT: was told to come to ER by PCP due to high blood sugar and hgba1C in clinic PCP: Dr. Naima Navarro Wares Sorter: Dr. Dos Santos Neurologist: Dr. Molina HISTORY OF PRESENT ILLNESS: This is a 74 year old female with past medical history significant for IDDM, HTN , HLD, cataracts and glaucoma who was sent in by PCP-Dr. Naima Conde to be admitted for elevated blood glucose. Dr. Conde called ER and gave report stating that patient hgba1c is 15.4 and glucose is 576 in the clinic. Patient reports she has been feeling extremely weak over the past 5 days. She reported she is usually compliant with her insulin and diet but today she didn't take insulin because she felt too fatigued. She denied dizziness, chest pain, blurry vision, headache, syncopy, diaphoresis, nausea or vomiting. She is being admitted f or uncontrolled diabetes and hyponatremia. ER course was notable for: (1) hyperglycemia, anion normal, no DKA, received insulin coverage (2) hyponatremia, IVF NS infusing Recent Travel: no PAST MEDICAL HISTORY: IDDM HTN HLD Cataracts Glaucoma PAST SURGICAL HISTORY: Cataract surgery x2, 1 eye in Aug 2017 and second eye in Sep 2017 Hysterectomy when she was younger due to "heavy bleeding" Social History: Smoking:no Alcohol:no Drugs: no Allergies metformin Adverse Reaction (Verified 09/23/19 17:02) "NAUSEOUS" nausea HOME MEDICATIONS: Home Medications Medication Instructions Recorded Aspirin [Aspirin EC] 81 mg PO DAILY 09/23/19 Atorvastatin Calcium 80 mg PO HS 09/23/19 Biotin 1,000 mcg PO DAILY 09/23/19 Brimonidine Tartrate [Alphagan P] 1 drop OU TID 09/23/19 Cholecalciferol (Vitamin D3) 1,000 unit PO DAILY 09/23/19 [Vitamin D3 -] Dorzolamide HCl/Timolol Maleat 1 drop OU BID 09/23/19 [Dorzolamide-Timolol Eye Drops] Ezetimibe [Zetia -] 10 mg PO DAILY 09/23/19 Glipizide [Glipizide ER] 5 mg PO AC 09/23/19 Hydrochlorothiazide [Hctz -] 12.5 mg PO DAILY 09/23/19 Insulin Detemir [Levemir Flextouch] 44 unit SQ BID 09/23/19 Insulin Lispro [Humalog] unit SQ ASDIR 09/23/19 Lisinopril [Prinivil] 10 mg PO DAILY 09/23/19 Valsartan/Hydrochlorothiazide 1 each PO DAILY 09/23/19 [Valsartan-Hctz 320-12.5 mg Tab] Varicella-Zoster Ge/As01b/Pf 1 dose IM ASDIR 09/23/19 [Shingrix Vial Kit] REVIEW OF SYSTEMS CONSTITUTIONAL: Absent: fever, chills, diaphoresis, generalized weakness, malaise, loss of appetite, weight change HEENT: Absent: rhinorrhea, nasal congestion, throat pain, throat swelling, difficulty swallowing, mouth swelling, ear pain, eye pain, visual changes CARDIOVASCULAR: Absent: chest pain, syncope, palpitations, irregular heart rate, lightheadedness , peripheral edema RESPIRATORY: Absent: cough, shortness of breath, dyspnea with exertion, orthopnea, wheezing, stridor, hemoptysis GASTROINTESTINAL: Absent: abdominal pain, abdominal distension, nausea, vomiting, diarrhea, constipation, melena, hematochezia GENITOURINARY: Absent: dysuria, frequency, urgency, hesitancy, hematuria, flank pain, genital pain MUSCULOSKELETAL: Absent: myalgia, arthralgia, joint swelling, back pain, neck pain SKIN: Absent: rash, itching, pallor HEMATOLOGIC/IMMUNOLOGIC: Absent: easy bleeding, easy bruising, lymphadenopathy, frequent infections ENDOCRINE: Absent: unexplained weight gain, unexplained weight loss, heat intolerance, cold intolerance NEUROLOGIC: Absent: headache, focal weakness or paresthesias, dizziness, unsteady gait, seizure, mental status changes, bladder or bowel incontinence PSYCHIATRIC: Absent: anxiety, depression, suicidal or homicidal ideation, hallucinations. PHYSICAL EXAMINATION Vital Signs - 24 hr 09/23/19 09/23/19 17:06 19:46 Temperature 98 F Pulse Rate 90 Pulse Rate [ 90 Apical] Respiratory 18 18 Rate Blood Pressure 115/80 Blood Pressure 126/59 L [Left Arm] O2 Sat by Pulse 99 100 Oximetry (%) GENERAL: awake alert and fully oriented no acute distress HEAD: normal EYES: pupils equal, round and reactive to light EARS, NOSE, THROAT: ears normal nares patent NECK: supple no JVD LUNGS: breath sounds equal clear to auscultation bilaterally no wheezes no crackles no accessory muscle use HEART: regular rate and rhythm normal S1 and S2 without murmur ABDOMEN: soft nontender not distended normoactive bowel sounds MUSCULOSKELETAL: normal range of motion UPPER EXTREMITIES: 2+ pulses warm well-perfused no cyanosis LOWER EXTREMITIES: 2+ pulses warm no edema NEUROLOGICAL: normal speech PSYCHIATRIC: cooperative good eye contact appropriate mood and affect SKIN: warm dry normal turgor no rashes or lesions noted normal capillary refill Laboratory Results - last 24 hr 09/23/19 09/23/19 09/23/19 17:18 17:18 17:18 WBC 7.3 RBC 4.80 Hgb 12.6 Hct 39.0 MCV 81.3 MCH 26.3 MCHC 32.4 RDW 14.0 Plt Count 265 D MPV 9.7 Absolute Neuts (auto) 5.2 Neutrophils % 71.7 Lymphocytes % 19.8 D Monocytes % 7.2 Eosinophils % 0.4 Basophils % 0.9 Nucleated RBC % 0 VBG pH POC VBG pCO2 POC VBG pO2 VBG HCO3 VBG O2 Sat (Omari) VBG Base Excess Sodium 125 L Potassium 5.3 H Chloride 89 L Carbon Dioxide 26 Anion Gap 10 BUN 39.6 H Creatinine 2.0 H Est GFR (CKD-EPI)AfAm 28.00 Est GFR (CKD-EPI)NonAf 24.16 POC Glucometer Random Glucose 781 H* Calcium 9.8 Total Bilirubin 1.0 AST 14 L ALT 27 Alkaline Phosphatase 197 H Total Protein 7.8 Albumin 4.0 Urine Color Yellow Urine Appearance Clear Urine pH 5.5 Ur Specific [place] 1.031 Urine Protein Negative Urine Glucose (UA) 3+ H Urine Ketones Negative Urine Blood Negative Urine Nitrite Negative Urine Bilirubin Negative Urine Urobilinogen 0.2 Ur Leukocyte Esterase Negative 09/23/19 09/23/19 09/23/19 18:00 19:54 20:16 WBC RBC Hgb Hct MCV MCH MCHC RDW Plt Count MPV Absolute Neuts (auto) Neutrophils % Lymphocytes % Monocytes % Eosinophils % Basophils % Nucleated RBC % VBG pH 7.39 POC VBG pCO2 46.1 POC VBG pO2 < 49 H VBG HCO3 27.3 VBG O2 Sat (Omari) 26.8 L VBG Base Excess 2.3 H Sodium Potassium Chloride Carbon Dioxide Anion Gap BUN Creatinine Est GFR (CKD-EPI)AfAm Est GFR (CKD-EPI)NonAf POC Glucometer 493 474 Random Glucose Calcium Total Bilirubin AST ALT Alkaline Phosphatase Total Protein Albumin Urine Color Urine Appearance Urine pH Ur Specific [place] Urine Protein Urine Glucose (UA) Urine Ketones Urine Blood Urine Nitrite Urine Bilirubin Urine Urobilinogen Ur Leukocyte Esterase 09/23/19 22:00 WBC RBC Hgb Hct MCV MCH MCHC RDW Plt Count MPV Absolute Neuts (auto) Neutrophils % Lymphocytes % Monocytes % Eosinophils % Basophils % Nucleated RBC % VBG pH POC VBG pCO2 POC VBG pO2 VBG HCO3 VBG O2 Sat (Omari) VBG Base Excess Sodium Potassium Chloride Carbon Dioxide Anion Gap BUN Creatinine Est GFR (CKD-EPI)AfAm Est GFR (CKD-EPI)NonAf POC Glucometer 416 Random Glucose Calcium Total Bilirubin AST ALT Alkaline Phosphatase Total Protein Albumin Urine Color Urine Appearance Urine pH Ur Specific [place] Urine Protein Urine Glucose (UA) Urine Ketones Urine Blood Urine Nitrite Urine Bilirubin Urine Urobilinogen Ur Leukocyte Esterase ASSESSMENT/PLAN: 74 year old female with past medical history significant for IDDM, HTN, HLD, cataracts and glaucoma who was sent in by PCP-Dr. Naima Conde to be admitted for elevated blood glucose and hgba1c. Patient has been feeling weak. She was found to have hyponatremia and hyperglycemia. She is being admitted for evaluation/management of uncontrolled diabetes and hyponatremia. #1 Uncontrolled Diabetes Mellitus hgba1c 15.4, allergic to metformin, UA w/ 3+ glucose, no ketones Repeat hgba1c Endocrinology- Dr. Frazier consulted BGM before meals and at bedtime Continue long acting insulin- levimir 44 Units BID Short acting insulin Novolog sliding scale ordered Continue statin and asa #2 Hyponatremia symptomatic w/ weakness continue with IVF at 75cc/hr #3 Acute Renal Insufficiency creatinine 2.0 (creatinine range between 0.9-3.0) continue IVF NS @ 75cc/hr repeat BMP in am Renal consulted- Dr. Wilhelm #4 Hypertension Controlled, UA with no proteinuria continue valsartan, lisinopril and HCTZ #5 Hyperlipidemia LFT's noprmal continue statin therapy #6 Hyperkalemia Repeat BMP in am DVT Prophylaxis lovenox 40mg daily SCD's Teds FEN IV NS @75cc/hr monitor electrolytes closely ADA diet E Visit type - Emergency Visit Emergency Visit: Yes ED Registration Date: 09/23/19 Care time: The patient presented to the Emergency Department on the above date and was hospitalized for further evaluation of their emergent condition. - New Patient This patient is new to me today: Yes Date on this admission: 09/23/19 - Critical Care Critical Care patient: No
[2019-09-23] MEDS: ATORVASTATIN CA 80 MG TABLET (FP) PO SCH (22:17)
[2019-09-23] MEDS: TIMOLOL 0.5% OPHTHALMIC SOL 5 ML BOTTLE OU SCH ×2 (23:37→23:52)
[2019-09-23] MEDS: BRIMONIDINE TARTRATE 0.1% OPHTHALMIC 5 ML BOTTLE OU SCH ×2 (23:37→23:52)
[2019-09-23] MEDS: DORZOLAMIDE 2% HCL OPHTHALMIC SOLUTION 10 ML BOTTLE OU SCH ×2 (23:38→23:51)
[2019-09-23] MEDS: INSULIN (LEVEMIR) 100 UNITS/ML UNITS SQ SCH (23:39)
[2019-09-24 01:36] VITALS: BMI 29.5
[2019-09-24] MEDS: BRIMONIDINE TARTRATE 0.1% OPHTHALMIC 5 ML BOTTLE OU SCH ×3 (06:35→22:44)
[2019-09-24] MEDS ORDERED: INSULIN SLIDING SCALE (NOVOLOG) 1 VIAL SQ SCH ×2 (07:00→16:30)
[2019-09-24 09:12] LABS: HEMATOCRIT 32.6 % (32.4-45.2); HEMOGLOBIN 10.7 GM/dL (10.7-15.3); MCH 26.1 pg (25.7-33.7); MCHC 32.7 g/dl (32.0-36.0); MEAN CELL VOLUME 79.6 fl (80-96); PLATELET COUNT 190 K/MM3 (134-434); RBC 4.09 M/mm3 (3.60-5.2); RDW 14.4 % (11.6-15.6); WHITE BLOOD COUNT 5.8 K/mm3 (4.0-10.0)
[2019-09-24 09:38] LABS: CALCIUM 8.7 mg/dL (8.5-10.1); POTASSIUM 4.2 mmol/L (3.5-5.1)
--- NOTE | 2019-09-24 09:56 | CONSULT ---
Consult Consult Specialty:: Nephrology Reason for Consultation:: LUCY - History of Present Illness Chief Complaint: sent in for hyperglycemia History of Present Illness: Pt is a 74 year old female with pmhx of dm, htn and hld who was sent in for hyperglycemia. She was found to be in lucy and found to be hyponatremic. She has history of poorly controlled DM. Her blood sugar did respond to meds. Renal function improved with hydration. She is awake and alert. She denies history of ckd. SHe denies nsaid use. She says that she did not take her insulin. - History Source History Provided By: Patient - Past Medical History Cardio/Vascular: Yes: HTN Endocrine: Yes: Diabetes Mellitus - Alcohol/Substance Use Hx Alcohol Use: No - Smoking History Smoking history: Never smoked Have you smoked in the past 12 months: No Aproximately how many cigarettes per day: 0 If you are a former smoker, when did you quit?: 21YRS OLD Home Medications - Allergies Allergies/Adverse Reactions: Allergies Allergy/AdvReac Type Severity Reaction Status Date / Time metformin AdvReac "NAUSEOUS" Verified 09/23/19 17:02 - Home Medications Home Medications: Ambulatory Orders Aspirin [Aspirin EC] 81 mg PO DAILY 09/23/19 Atorvastatin Calcium 80 mg PO HS 09/23/19 Biotin 1,000 mcg PO DAILY 09/23/19 Brimonidine Tartrate [Alphagan P] 1 drop OU TID 09/23/19 Cholecalciferol (Vitamin D3) [Vitamin D3 -] 1,000 unit PO DAILY 09/23/19 Dorzolamide HCl/Timolol Maleat [Dorzolamide-Timolol Eye Drops] 1 drop OU BID Ezetimibe [Zetia -] 10 mg PO DAILY 09/23/19 Glipizide [Glipizide ER] 5 mg PO AC 09/23/19 Hydrochlorothiazide [Hctz -] 12.5 mg PO DAILY 09/23/19 Insulin Detemir [Levemir Flextouch] 44 unit SQ BID 09/23/19 Insulin Lispro [Humalog] unit SQ ASDIR 09/23/19 Lisinopril [Prinivil] 10 mg PO DAILY 09/23/19 Valsartan/Hydrochlorothiazide [Valsartan-Hctz 320-12.5 mg Tab] 1 each PO DAILY 09/23/19 Varicella-Zoster Ge/As01b/Pf [Shingrix Vial Kit] 1 dose IM ASDIR 09/23/19 Family Medical History Family History: Denies Review of Systems - Review of Systems Constitutional: reports: No Symptoms Eyes: reports: No Symptoms HENT: reports: No Symptoms Neck: reports: No Symptoms Cardiovascular: reports: No Symptoms Respiratory: reports: No Symptoms Gastrointestinal: reports: No Symptoms Genitourinary: reports: No Symptoms Musculoskeletal: reports: No Symptoms Integumentary: reports: No Symptoms Neurological: reports: No Symptoms Endocrine: reports: No Symptoms Hematology/Lymphatic: reports: No Symptoms Psychiatric: reports: No Symptoms Physical Exam Vital Signs: Vital Signs Temperature 98.1 F 09/24/19 06:51 Pulse Rate 65 09/24/19 06:51 Respiratory Rate 18 09/24/19 06:51 Blood Pressure 105/43 L 09/24/19 06:51 O2 Sat by Pulse Oximetry (%) 98 09/23/19 20:30 Constitutional: Yes: Calm Eyes: Yes: Conjunctiva Clear HENT: Yes: Atraumatic Neck: Yes: Supple Cardiovascular: Yes: S1, S2 Respiratory: Yes: CTA Bilaterally Gastrointestinal: Yes: Normal Bowel Sounds, Soft Renal/: Yes: WNL Musculoskeletal: Yes: WNL Extremities: Yes: WNL Edema: No Neurological: Yes: Oriented Psychiatric: Yes: Oriented Labs: CBC, BMP 09/24/19 08:32 09/24/19 08:32 Laboratory Tests 09/23/19 09/23/19 09/23/19 17:18 19:54 23:43 Sodium 125 L Potassium 5.3 H BUN 39.6 H Creatinine 2.0 H Est GFR (CKD-EPI)NonAf POC Glucometer 493 324 Random Glucose 781 H* 09/24/19 08:32 Sodium 140 Potassium 4.2 BUN 24.0 H Creatinine Est GFR (CKD-EPI)NonAf 55.85 POC Glucometer Random Glucose Problem List - Problems (1) Dehydration Code(s): E86.0 - DEHYDRATION (2) Hyponatremia Code(s): E87.1 - HYPO-OSMOLALITY AND HYPONATREMIA (3) High blood sugar Code(s): R73.9 - HYPERGLYCEMIA, UNSPECIFIED (4) Hyperkalemia Code(s): E87.5 - HYPERKALEMIA Assessment/Plan Current Medications Generic Name Dose Route Start Last Admin Trade Name Freq PRN Reason Stop Dose Admin Aspirin 81 mg 09/24/19 10:00 Ecotrin - PO DAILY [facility] Atorvastatin Calcium 80 mg 09/23/19 22:00 09/23/19 22:17 Lipitor - PO Not Given HS [facility] Brimonidine Tartrate 1 drop 09/23/19 22:00 09/24/19 06:35 Alphagan P 0.1% - OU 1 drop TID [facility] Administration Cholecalciferol 1,000 unit 09/24/19 10:00 Vitamin D3 - PO DAILY [facility] Dorzolamide HCl 1 drop 09/23/19 22:00 09/23/19 23:51 Trusopt 2% OU Not Given BID [facility] Ezetimibe 10 mg 09/24/19 10:00 Zetia - PO DAILY [facility] Enoxaparin Sodium 40 mg 09/24/19 10:00 Lovenox - SQ DAILY [facility] Hydrochlorothiazide 12.5 mg 09/24/19 10:00 Hctz - PO DAILY [facility] Sodium Chloride 1,000 mls @ 75 mls/hr 09/23/19 20:00 09/23/19 23:54 Normal Saline - IV 75 mls/hr ASDIR [facility] Administration Insulin Aspart 1 vial 09/24/19 07:00 09/24/19 06:35 Novolog Vial Sliding Scale - SQ [facility] Insulin Detemir 44 units 09/23/19 23:00 09/23/19 23:39 Levemir Vial SQ 44 units BID [facility] Administration Non-Formulary Medication 1,000 mcg 09/24/19 10:00 Biotin [Biotin] PO DAILY [facility] Timolol Maleate 1 drop 09/23/19 22:00 09/23/19 23:52 Timoptic 0.5% OU Not Given BID [facility] Impression 1. LUCY 2. hyponatremia 3. uncontrolled DM 4. hyperkalemia 5. HTN 6. HLD Plan - renal function improved - lytes improved - d/c thiazide - change fluids to 1/2 ns - monitor lytes - restart either lisinopril or valsartan once bp improves - will follow prn
[2019-09-24] MEDS ORDERED: PATIENT'S OWN MEDICATION (NON-FORMULARY) (Biotin [Biotin] 1,000 MCG) PO SCH (10:00)
[2019-09-24] MEDS ORDERED: LISINOPRIL 10 MG TABLET (FP) PO SCH (10:00)
[2019-09-24] MEDS ORDERED: VALSARTAN 160 MG TABLET (UD) PO SCH (10:00)
--- NOTE | 2019-09-24 11:34 | PN ---
Progress Note, Physician History of Present Illness: Pt seen/ examined chart is reviewed feels better denies cp/sob/abd pain - Current Medication List Current Medications: Active Medications Aspirin (Ecotrin -) 81 mg PO DAILY [facility] Atorvastatin Calcium (Lipitor -) 80 mg PO HS [facility] Last Admin: 09/23/19 22:17 Dose: Not Given Brimonidine Tartrate (Alphagan P 0.1% -) 1 drop OU TID [facility] Last Admin: 09/24/19 06:35 Dose: 1 drop Cholecalciferol (Vitamin D3 -) 1,000 unit PO DAILY [facility] Dorzolamide HCl (Trusopt 2%) 1 drop OU BID [facility] Last Admin: 09/23/19 23:51 Dose: Not Given Ezetimibe (Zetia -) 10 mg PO DAILY [facility] Enoxaparin Sodium (Lovenox -) 40 mg SQ DAILY [facility] Hydrochlorothiazide (Hctz -) 12.5 mg PO DAILY [facility] Sodium Chloride (Normal Saline -) 1,000 mls @ 75 mls/hr IV ASDIR [facility] Last Admin: 09/23/19 23:54 Dose: 75 mls/hr Insulin Aspart (Novolog Vial Sliding Scale -) [facility] Last Admin: 09/24/19 06:35 Dose: Not Given Insulin Detemir (Levemir Vial) 44 units SQ BID [facility] Last Admin: 09/23/19 23:39 Dose: 44 units Non-Formulary Medication (Biotin [Biotin]) 1,000 mcg PO DAILY [facility] Timolol Maleate (Timoptic 0.5%) 1 drop OU BID [facility] Last Admin: 09/23/19 23:52 Dose: Not Given - Objective Vital Signs: Vital Signs Temperature 97.7 F 09/24/19 09:00 Pulse Rate 77 09/24/19 11:23 Respiratory Rate 18 09/24/19 11:23 Blood Pressure 110/64 09/24/19 11:23 O2 Sat by Pulse Oximetry (%) 98 09/23/19 20:30 Constitutional: Yes: No Distress HENT: Yes: WNL Neck: Yes: Supple Cardiovascular: Yes: Regular Rate and Rhythm Respiratory: Yes: CTA Bilaterally Gastrointestinal: Yes: Soft Edema: No Neurological: Yes: Alert Psychiatric: Yes: Alert Labs: CBC, BMP 09/24/19 08:32 09/24/19 08:32 Problem List - Problems (1) Dehydration Code(s): E86.0 - DEHYDRATION (2) High blood sugar Code(s): R73.9 - HYPERGLYCEMIA, UNSPECIFIED Assessment/Plan Discussed Compliance stressed Monitor BGm Fluids Will follow Diabetic teaching provide Endo consult
[2019-09-24] MEDS: HYDROCHLOROTHIAZIDE 12.5 MG CAPSULE (FP) PO SCH ×2 (11:52→11:58)
[2019-09-24] MEDS: INSULIN (LEVEMIR) 100 UNITS/ML UNITS SQ SCH ×2 (11:52→22:46)
[2019-09-24] MEDS: ASPIRIN COATED 81 MG TABLET.EC PO SCH (11:52)
[2019-09-24] MEDS: CHOLECALCIFEROL (VIT D3) 1,000 UNIT (25 MCG) TABLET PO SCH (11:52)
[2019-09-24] MEDS: ENOXAPARIN NA (PORCINE) 40 MG/0.4 ML DISP.SYRIN SQ SCH (11:53)
[2019-09-24] MEDS: EZETIMIBE 10 MG TABLET (FP) PO SCH (11:54)
[2019-09-24] MEDS: DORZOLAMIDE 2% HCL OPHTHALMIC SOLUTION 10 ML BOTTLE OU SCH ×2 (11:57→22:43)
[2019-09-24] MEDS: TIMOLOL 0.5% OPHTHALMIC SOL 5 ML BOTTLE OU SCH ×2 (11:57→22:44)
--- NOTE | 2019-09-24 15:17 | EKG ---
Test Reason : Blood Pressure : / mmHG Vent. Rate : 091 BPM Atrial Rate : 091 BPM P-R Int : 130 ms QRS Dur : 080 ms QT Int : 354 ms P-R-T Axes : 062 009 030 degrees QTc Int : 435 ms NORMAL SINUS RHYTHM MINIMAL VOLTAGE CRITERIA FOR LVH, MAY BE NORMAL VARIANT LEFT ATRIAL ENLARGEMENT Confirmed by MEEK DOMINGUEZ MD ([id number]) on 09/24/2019 3:17:24 PM Referred By: Confirmed By:MEEK DOMINGUEZ MD
[2019-09-24] MEDS: SODIUM CHLORIDE 0.45% 1,000 ML IV SCH (17:02)
--- NOTE | 2019-09-24 20:02 | CONSULT ---
Consult Consult Specialty:: endocrine Referred by:: valeria munroe Reason for Consultation:: dmt2, uncontrolled - History of Present Illness Chief Complaint: high sugars History of Present Illness: 74year old female with past medical history significant for DMT2, HTN, HLD, cataracts and glaucoma who was sent in by PCP-Dr. Naima Conde to be admitted for elevated blood glucose. Dr. Conde called ER and gave report stating that patient hgba1c is 15.4 and glucose is 576 in the clinic. Patient reports she has been having high sugars and feeling weak. She reported she is usually compliant with her insulin and diet but today she didn't take insulin because she felt too fatigued. She denied dizziness, chest pain, blurry vision, headache , syncopy, diaphoresis, nausea or vomiting. - Past Medical History Cardio/Vascular: Yes: HTN Endocrine: Yes: Diabetes Mellitus - Alcohol/Substance Use Hx Alcohol Use: No - Smoking History Smoking history: Never smoked Have you smoked in the past 12 months: No Aproximately how many cigarettes per day: 0 If you are a former smoker, when did you quit?: 21YRS OLD Home Medications - Allergies Allergies/Adverse Reactions: Allergies Allergy/AdvReac Type Severity Reaction Status Date / Time metformin AdvReac "NAUSEOUS" Verified 09/23/19 17:02 - Home Medications Home Medications: Ambulatory Orders Aspirin [Aspirin EC] 81 mg PO DAILY 09/23/19 Atorvastatin Calcium 80 mg PO HS 09/23/19 Biotin 1,000 mcg PO DAILY 09/23/19 Brimonidine Tartrate [Alphagan P] 1 drop OU TID 09/23/19 Cholecalciferol (Vitamin D3) [Vitamin D3 -] 1,000 unit PO DAILY 09/23/19 Dorzolamide HCl/Timolol Maleat [Dorzolamide-Timolol Eye Drops] 1 drop OU BID Ezetimibe [Zetia -] 10 mg PO DAILY 09/23/19 Glipizide [Glipizide ER] 5 mg PO AC 09/23/19 Hydrochlorothiazide [Hctz -] 12.5 mg PO DAILY 09/23/19 Insulin Detemir [Levemir Flextouch] 44 unit SQ BID 09/23/19 Insulin Lispro [Humalog] unit SQ ASDIR 09/23/19 Lisinopril [Prinivil] 10 mg PO DAILY 09/23/19 Valsartan/Hydrochlorothiazide [Valsartan-Hctz 320-12.5 mg Tab] 1 each PO DAILY 09/23/19 Varicella-Zoster Ge/As01b/Pf [Shingrix Vial Kit] 1 dose IM ASDIR 09/23/19 Review of Systems - Review of Systems Constitutional: reports: Lethargy Eyes: reports: Double Vision HENT: reports: No Symptoms Neck: reports: No Symptoms Cardiovascular: reports: No Symptoms Respiratory: reports: No Symptoms Gastrointestinal: reports: Indigestion Genitourinary: reports: No Symptoms Breasts: reports: No Symptoms Reported Musculoskeletal: reports: Muscle Pain, Muscle Cramps, Muscle Weakness Integumentary: reports: No Symptoms Neurological: reports: Unsteady Gait, Weakness Endocrine: reports: Unexplained Weight Gain Physical Exam Vital Signs: Vital Signs Temperature 98.6 F 09/24/19 18:00 Pulse Rate 74 09/24/19 18:00 Respiratory Rate 18 09/24/19 18:00 Blood Pressure 102/58 L 09/24/19 18:00 O2 Sat by Pulse Oximetry (%) 98 09/23/19 20:30 Constitutional: Yes: Calm Eyes: Yes: EOM Intact HENT: Yes: Normocephalic Neck: Yes: Trachea Midline Cardiovascular: Yes: Regular Rate and Rhythm Respiratory: Yes: CTA Bilaterally Gastrointestinal: Yes: Normal Bowel Sounds ...Rectal Exam: Yes: Deferred Renal/: Yes: WNL Breast(s): Yes: WNL Musculoskeletal: Yes: Muscle Weakness Extremities: Yes: WNL Edema: No Neurological: Yes: Alert, Oriented Labs: CBC, BMP 09/24/19 08:32 09/24/19 08:32 Problem List - Problems (1) Dehydration Code(s): E86.0 - DEHYDRATION (2) High blood sugar Code(s): R73.9 - HYPERGLYCEMIA, UNSPECIFIED (3) Hyperkalemia Code(s): E87.5 - HYPERKALEMIA (4) Hyponatremia Code(s): E87.1 - HYPO-OSMOLALITY AND HYPONATREMIA (5) DKA (diabetic ketoacidoses) Code(s): E13.10 - OTH DIABETES MELLITUS WITH KETOACIDOSIS WITHOUT COMA Qualifiers: Diabetes mellitus type: type 2 Diabetes mellitus complication detail: without coma Qualified Code(s): E11.10 - Type 2 diabetes mellitus with ketoacidosis without coma Assessment/Plan Current Active Problems Dehydration (Acute) High blood sugar (Acute) Hyperkalemia (Acute) Hyponatremia (Acute) Abnormal Lab Results 09/23/19 09/24/19 09/24/19 17:18 08:32 08:32 MCV 79.6 L Sodium 125 L Potassium 5.3 H Chloride 89 L Anion Gap 6 L BUN 39.6 H 24.0 H Creatinine 2.0 H Random Glucose 781 H* 150 H Hemoglobin A1c % AST 14 L Alkaline Phosphatase 197 H 09/24/19 08:32 MCV Sodium Potassium Chloride Anion Gap BUN Creatinine Random Glucose Hemoglobin A1c % 15.3 H AST Alkaline Phosphatase Laboratory Tests 09/23/19 09/23/19 09/23/19 20:16 22:00 23:43 Sodium Potassium Chloride Carbon Dioxide Anion Gap BUN Creatinine POC Glucometer 474 416 324 Random Glucose Calcium 09/24/19 09/24/19 08:32 11:45 Sodium 140 Potassium 4.2 Chloride 107 Carbon Dioxide 28 Anion Gap 6 L BUN 24.0 H Creatinine 1.0 POC Glucometer 204 Random Glucose 150 H Calcium 8.7 plan; bgm qid novolog scale levemir bid doses diet and adherence
[2019-09-24] MEDS: ATORVASTATIN CA 80 MG TABLET (FP) PO SCH (22:42)
[2019-09-24] MEDS: INSULIN SLIDING SCALE (NOVOLOG) 1 VIAL SQ SCH (22:48)
[2019-09-25] MEDS: INSULIN SLIDING SCALE (NOVOLOG) 1 VIAL SQ SCH ×4 (06:59→21:31)
[2019-09-25] MEDS: BRIMONIDINE TARTRATE 0.1% OPHTHALMIC 5 ML BOTTLE OU SCH ×3 (07:00→21:29)
[2019-09-25] MEDS: SODIUM CHLORIDE 0.45% 1,000 ML IV SCH ×3 (07:01→18:45)
[2019-09-25] MEDS: INSULIN (LEVEMIR) 100 UNITS/ML UNITS SQ SCH (09:47)
[2019-09-25] MEDS: CHOLECALCIFEROL (VIT D3) 1,000 UNIT (25 MCG) TABLET PO SCH (09:50)
[2019-09-25] MEDS: EZETIMIBE 10 MG TABLET (FP) PO SCH (09:50)
[2019-09-25] MEDS: ASPIRIN COATED 81 MG TABLET.EC PO SCH (09:51)
[2019-09-25] MEDS: ENOXAPARIN NA (PORCINE) 40 MG/0.4 ML DISP.SYRIN SQ SCH (09:51)
[2019-09-25] MEDS: DORZOLAMIDE 2% HCL OPHTHALMIC SOLUTION 10 ML BOTTLE OU SCH ×2 (10:48→21:29)
[2019-09-25] MEDS: TIMOLOL 0.5% OPHTHALMIC SOL 5 ML BOTTLE OU SCH ×2 (11:07→21:29)
--- NOTE | 2019-09-25 13:26 | PN ---
Progress Note (short form) - Note Progress Note: feeling better no distress sugars were low this AM Vital Signs - 24 hr 09/24/19 09/24/19 09/24/19 15:37 18:00 21:00 Temperature 97.6 F 98.6 F Pulse Rate 83 74 Respiratory 18 18 Rate Blood Pressure 109/59 L 102/58 L O2 Sat by Pulse 96 Oximetry (%) 09/24/19 09/25/19 22:00 06:00 Temperature 98.3 F 98.4 F Pulse Rate 73 70 Respiratory 18 18 Rate Blood Pressure 108/58 L 110/65 O2 Sat by Pulse Oximetry (%) Current Medications Generic Name Dose Route Start Last Admin Trade Name Freq PRN Reason Stop Dose Admin Aspirin 81 mg 09/24/19 10:00 09/25/19 09:51 Ecotrin - PO 81 mg DAILY [facility] Administration Atorvastatin Calcium 80 mg 09/23/19 22:00 09/24/19 22:42 Lipitor - PO 80 mg HS [facility] Administration Brimonidine Tartrate 1 drop 09/23/19 22:00 09/25/19 13:11 Alphagan P 0.1% - OU 1 drop TID [facility] Administration Cholecalciferol 1,000 unit 09/24/19 10:00 09/25/19 09:50 Vitamin D3 - PO 1,000 unit DAILY [facility] Administration Dorzolamide HCl 1 drop 09/23/19 22:00 09/25/19 10:48 Trusopt 2% OU 1 drop BID [facility] Administration Ezetimibe 10 mg 09/24/19 10:00 09/25/19 09:50 Zetia - PO 10 mg DAILY [facility] Administration Enoxaparin Sodium 40 mg 09/24/19 10:00 09/25/19 09:51 Lovenox - SQ 40 mg DAILY [facility] Administration Sodium Chloride 1,000 mls @ 75 mls/hr 09/24/19 16:45 09/25/19 07:01 1/2 Normal Saline IV 75 mls/hr ASDIR [facility] Administration Insulin Aspart 1 vial 09/24/19 20:13 09/25/19 11:23 Novolog Vial Sliding Scale - SQ 3 unit ACHS [facility] Administration Protocol Insulin Detemir 44 units 09/25/19 22:00 Levemir Vial SQ BID@0700,2200 [facility] Timolol Maleate 1 drop 09/23/19 22:00 09/25/19 11:07 Timoptic 0.5% OU 1 drop BID [facility] Administration Laboratory Results - last 24 hr 09/24/19 09/24/19 09/25/19 16:55 22:39 06:57 POC Glucometer 237 213 60 09/25/19 09/25/19 07:47 11:16 POC Glucometer 131 195 S1 S2 RRR Lungs clear Abd- soft, NT No edema plan --- decrease pm levemir -- iv fluids -- check BMP -- if better, will dc in AM Problem List - Problems (1) Dehydration Code(s): E86.0 - DEHYDRATION (2) High blood sugar Code(s): R73.9 - HYPERGLYCEMIA, UNSPECIFIED (3) Hyperkalemia Code(s): E87.5 - HYPERKALEMIA (4) Hyponatremia Code(s): E87.1 - HYPO-OSMOLALITY AND HYPONATREMIA
[2019-09-25] MEDS ORDERED: INSULIN (LEVEMIR) 100 UNITS/ML UNITS SQ ONE (13:42)
[2019-09-25] MEDS: ATORVASTATIN CA 80 MG TABLET (FP) PO SCH (21:29)
[2019-09-25] MEDS ORDERED: INSULIN (LEVEMIR) 100 UNITS/ML UNITS SQ SCH ×2 (22:00)
[2019-09-26] MEDS: INSULIN SLIDING SCALE (NOVOLOG) 1 VIAL SQ SCH ×2 (06:06→12:17)
[2019-09-26] MEDS: BRIMONIDINE TARTRATE 0.1% OPHTHALMIC 5 ML BOTTLE OU SCH (06:06)
[2019-09-26] MEDS ORDERED: INSULIN (LEVEMIR) 100 UNITS/ML UNITS SQ SCH (07:00)
[2019-09-26 09:09] LABS: CALCIUM 8.7 mg/dL (8.5-10.1); CREATININE 0.9 mg/dL (0.55-1.3); POTASSIUM 4.4 mmol/L (3.5-5.1)
--- NOTE | 2019-09-26 09:47 | PN ---
Problem List - Problems (1) Dehydration Code(s): E86.0 - DEHYDRATION (2) High blood sugar Code(s): R73.9 - HYPERGLYCEMIA, UNSPECIFIED (3) Hyperkalemia Code(s): E87.5 - HYPERKALEMIA (4) Hyponatremia Code(s): E87.1 - HYPO-OSMOLALITY AND HYPONATREMIA
--- NOTE | 2019-09-26 09:54 | DS ---
Physical Examination Vital Signs: Vital Signs Temperature 98.1 F 09/26/19 06:00 Pulse Rate 79 09/26/19 06:00 Respiratory Rate 18 09/26/19 06:00 Blood Pressure 118/65 09/26/19 06:00 O2 Sat by Pulse Oximetry (%) 100 09/25/19 21:00 Constitutional: Yes: No Distress, Calm Cardiovascular: Yes: Regular Rate and Rhythm Respiratory: Yes: CTA Bilaterally Gastrointestinal: Yes: Normal Bowel Sounds, Soft. No: Tenderness Edema: No Labs: CBC, BMP 09/24/19 08:32 09/26/19 07:35 Discharge Summary Problems reviewed: Yes Reason For Visit: HYPERGLYCEMIA Current Active Problems Dehydration (Acute) High blood sugar (Acute) Hyperkalemia (Acute) Hyponatremia (Acute) Health Concerns: Admitted for hyperosmolar state Pt non compliant A1C 15 Was on iv fluids, insulin adjusted Pt was evaluated by Endocrinology Pt is feeling better Stable for dc home on Levemir 44units in AM and 40 units HS follow up with Dr Sheikh this week and she can see me after that -- pt was instructed to do so Condition: Stable - Instructions Referrals: Naima Conde MD [Primary Care Provider] - Shital Sheikh MD [Staff Physician] - Disposition: HOME - Home Medications Comprehensive Discharge Medication List: Ambulatory Orders Aspirin [Aspirin EC] 81 mg PO DAILY 09/23/19 Atorvastatin Calcium 80 mg PO HS 09/23/19 Biotin 1,000 mcg PO DAILY 09/23/19 Brimonidine Tartrate [Alphagan P] 1 drop OU TID 09/23/19 Cholecalciferol (Vitamin D3) [Vitamin D -] 1,000 unit PO DAILY 09/23/19 Dorzolamide HCl/Timolol Maleat [Dorzolamide-Timolol Eye Drops] 1 drop OU BID Ezetimibe [Zetia -] 10 mg PO DAILY 09/23/19 Glipizide [Glipizide ER] 5 mg PO AC 09/23/19 Insulin Lispro [Humalog] unit SQ ASDIR 09/23/19 Lisinopril [Prinivil] 10 mg PO DAILY 09/23/19 Insulin (Levemir) [Levemir Vial] 40 units SQ HS units 09/26/19 Insulin (Levemir) [Levemir Vial] 44 units SQ AM units 09/26/19
[2019-09-26] MEDS: ASPIRIN COATED 81 MG TABLET.EC PO SCH (10:56)
[2019-09-26] MEDS: CHOLECALCIFEROL (VIT D3) 1,000 UNIT (25 MCG) TABLET PO SCH (10:56)
[2019-09-26] MEDS: EZETIMIBE 10 MG TABLET (FP) PO SCH (10:58)
[2019-09-26] MEDS: ENOXAPARIN NA (PORCINE) 40 MG/0.4 ML DISP.SYRIN SQ SCH (10:58)
[2019-09-26] MEDS: TIMOLOL 0.5% OPHTHALMIC SOL 5 ML BOTTLE OU SCH (10:59)
[2019-09-26] MEDS: DORZOLAMIDE 2% HCL OPHTHALMIC SOLUTION 10 ML BOTTLE OU SCH (10:59)
[2019-09-26 12:45] VITALS: BP 100/55; PULSE 82; TEMP 98.3
== END 2019-09-26 13:45 | disposition home or self-care (01) | DRG 638 ==
LOC: JER 16:37 → JERBED 19:02 → J5S 20:05
PROVIDERS: ADMIT Internal Medicine; ATTEND Internal Medicine
DX: E11.00 Type 2 diabetes mellitus with hyperosmolarity without nonketotic hyperglycemic-hyperosmolar coma (NKHHC) (principal); N17.9 Acute kidney failure, unspecified; E87.1 Hypo-osmolality and hyponatremia; E87.5 Hyperkalemia; E86.0 Dehydration; I10 Essential (primary) hypertension; E78.5 Hyperlipidemia, unspecified
CPT/HCPCS: 36415; 80048; 80053; 81003; 82010; 82803; 82962; 83036; 85025; 85027; 93005; 93010; 99284-25; J7030

== ENCOUNTER 2021-01-31 08:59 | Observation (INO) | payer OTHER, BC ==
[2021-01-31 09:09] VITALS: BMI 26.2
[2021-01-31] MEDS ORDERED: MECLIZINE HCL 25 MG TABLET (FP) PO ONE (10:07)
[2021-01-31] MEDS ORDERED: ONDANSETRON 4 MG/2 ML VIAL IVPUSH ONE (10:07)
[2021-01-31] MEDS ORDERED: SODIUM CHLORIDE 0.9% 1000 ML INFUS.BAG IV ONE (10:10)
[2021-01-31] MEDS ORDERED: ONDANSETRON 4 MG/2 ML VIAL ONE ×2 (10:15→11:18)
[2021-01-31] MEDS ORDERED: MECLIZINE HCL 25 MG TABLET (FP) ONE (10:15)
[2021-01-31 10:35] LABS: BASO % 0.9 % (0-2.0); EOS % 0.7 % (0-4.5); HEMATOCRIT 38.3 % (32.4-45.2); HEMOGLOBIN 12.7 GM/dL (10.7-15.3); LYMPH % 16.4 % (8-40); MCH 25.6 pg (25.7-33.7); MCHC 33.3 g/dl (32.0-36.0); MEAN CELL VOLUME 76.9 fl (80-96); MEAN PLT VOLUME 8.8 fl (7.5-11.1); MONO % 4.5 % (3.8-10.2); NEUT % 77.5 % (42.8-82.8); PLATELET COUNT 241 K/MM3 (134-434); RBC 4.97 M/mm3 (3.60-5.2); RDW 14.6 % (11.6-15.6); WHITE BLOOD COUNT 6.6 K/mm3 (4.0-10.0)
[2021-01-31 10:40] LABS: INR 1.03 (0.83-1.09); PROTHROMBIN TIME (PATIENT) 12.7 SEC (9.7-13.0)
[2021-01-31 10:52] LABS: CHLORIDE 102 mmol/L (98-107); SODIUM 138 mmol/L (136-145)
[2021-01-31 10:55] LABS: ANION GAP 11 MMOL/L (8-16); CALCIUM 10.1 mg/dL (8.5-10.1); CO2 26 mmol/L (21-32); GLUCOSE,RANDOM 229 mg/dL (74-106)
[2021-01-31 10:58] LABS: SGOT/AST 10 U/L (15-37); SGPT/ALT 16 U/L (13-61)
[2021-01-31 10:59] LABS: CREATININE 1.2 mg/dL (0.55-1.3)
[2021-01-31 11:00] LABS: BILIRUBIN,TOTAL 0.8 mg/dL (0.2-1); TOT PROT 7.9 g/dl (6.4-8.2)
[2021-01-31 11:01] LABS: ALK PHOS 150 U/L (45-117)
[2021-01-31 13:47] LABS: EPI CELLS >36 /uL (0-25.1); HYALINE CASTS 1 /uL (0-3.1); URINE APPEARANCE CLOUDY; URINE BACTERIA 1823 /uL (0-1359); URINE BILIRUBIN NEGATIVE (NEGATIVE); URINE COLOR YELLOW; URINE GLUCOSE (UA) 3+ (NEGATIVE); URINE KETONE NEGATIVE (NEGATIVE); URINE LEUK ESTERASE 2+ (NEGATIVE); URINE NITRITE NEGATIVE (NEGATIVE); URINE PROTEIN NEGATIVE (NEGATIVE); URINE RBC 7 /uL (0-23.9); URINE UROBILINOGEN 0.2 mg/dL (0.2-1.0); URINE WBC 89 /uL (0-25.8)
[2021-01-31] MEDS ORDERED: VANCOMYCIN 1 GRAM (PRE-DOCKED) 1,000 MG/250 ML BAG IVPB ONE (14:29)
[2021-01-31] MEDS ORDERED: PIPERACILLIN/TAZOB 3.375 GM 3.375 GM/50 ML BAG IVPB ONE (14:29)
[2021-01-31] MEDS ORDERED: BACITRACIN 0.9 GM PACKET ONE (14:31)
[2021-01-31] MEDS ORDERED: MECLIZINE HCL 25 MG TABLET (FP) PO PRN (16:20)
[2021-01-31] MEDS ORDERED: ONDANSETRON 4 MG/2 ML VIAL IVPUSH PRN (16:20)
[2021-01-31] MEDS ORDERED: ACETAMINOPHEN 325 MG TABLET (FP) PO ONE (20:03)
[2021-01-31] MEDS ORDERED: ACETAMINOPHEN 325 MG TABLET (FP) ONE (20:08)
[2021-01-31] MEDS ORDERED: ATORVASTATIN CA 80 MG TABLET (FP) ONE (20:49)
[2021-01-31] MEDS ORDERED: INSULIN (LEVEMIR) 100 UNITS/ML UNITS SQ ONE ×2 (20:50→20:51)
[2021-01-31 21:50] LABS: BLOOD UREA NITROGEN 13.9 mg/dL (7-18); CALCIUM 9.3 mg/dL (8.5-10.1)
[2021-01-31 21:54] LABS: CREATININE 1.4 mg/dL (0.55-1.3)
[2021-01-31] MEDS ORDERED: INSULIN (LEVEMIR) 100 UNITS/ML UNITS SQ SCH (22:00)
[2021-01-31] MEDS: ATORVASTATIN CA 80 MG TABLET (FP) PO SCH (22:13)
[2021-01-31] MEDS: BRIMONIDINE TARTRATE 0.1% OPHTHALMIC 5 ML BOTTLE OU SCH (22:13)
[2021-02-01] MEDS: BRIMONIDINE TARTRATE 0.1% OPHTHALMIC 5 ML BOTTLE OU SCH ×3 (05:59→23:50)
[2021-02-01] MEDS ORDERED: INSULIN (LEVEMIR) 100 UNITS/ML UNITS SQ ONE (06:22)
[2021-02-01] MEDS ORDERED: INSULIN (LEVEMIR) 100 UNITS/ML UNITS SQ SCH ×3 (07:00→12:48)
[2021-02-01] MEDS: LISINOPRIL 10 MG TABLET PO SCH (10:42)
[2021-02-01] MEDS: ASPIRIN COATED 81 MG TABLET.EC PO SCH (10:45)
[2021-02-01] MEDS ORDERED: cefTRIAXone SODIUM 1 GM VIAL ONE (14:40)
[2021-02-01] MEDS ORDERED: DEXTROSE 5%-WATER - 50 ML IVPB ONE (14:40)
[2021-02-01] MEDS: glipiZIDE-XL 5 MG TAB.ER.24 PO SCH (14:41)
[2021-02-01] MEDS: ENOXAPARIN NA (PORCINE) 40 MG/0.4 ML DISP.SYRIN SQ SCH (14:42)
[2021-02-01] MEDS: CEFTRIAXONE 1 GM in DEXTROSE 5%-WATER - 50 ML IVPB SCH (14:42)
[2021-02-01] MEDS ORDERED: LIDOCAINE HCL 1%, 10 MG/ML (20ML VIAL) ONE (15:56)
[2021-02-01] MEDS ORDERED: BENZOIN/ALOE VERA/STORAX/TOLU 58 ML BOTTLE ONE (15:57)
[2021-02-01] MEDS ORDERED: BUPIVACAINE HCL 100 ML ONE (15:57)
[2021-02-01] MEDS ORDERED: INSULIN (NOVOLOG) ASPART 100 UNITS/ML 10ML VIAL ONE (17:00)
[2021-02-01] MEDS: INSULIN SLIDING SCALE (NOVOLOG) 1 VIAL SQ SCH (17:02)
[2021-02-01] MEDS: ATORVASTATIN CA 80 MG TABLET (FP) PO SCH (23:47)
[2021-02-02] MEDS: glipiZIDE-XL 5 MG TAB.ER.24 PO SCH (06:41)
[2021-02-02] MEDS: BRIMONIDINE TARTRATE 0.1% OPHTHALMIC 5 ML BOTTLE OU SCH ×2 (06:41→13:19)
[2021-02-02 09:48] VITALS: BP 162/77; PULSE 69; TEMP 97.7
[2021-02-02] MEDS ORDERED: EZETIMIBE 10 MG TABLET (FP) PO SCH (10:00)
[2021-02-02] MEDS ORDERED: cefTRIAXone SODIUM 1 GM VIAL ONE (10:02)
[2021-02-02] MEDS ORDERED: DEXTROSE 5%-WATER - 50 ML IVPB ONE (10:03)
[2021-02-02] MEDS: INSULIN SLIDING SCALE (NOVOLOG) 1 VIAL SQ SCH ×2 (10:11→10:17)
[2021-02-02] MEDS: LISINOPRIL 10 MG TABLET PO SCH (10:12)
[2021-02-02] MEDS: ASPIRIN COATED 81 MG TABLET.EC PO SCH (10:16)
[2021-02-02] MEDS: ENOXAPARIN NA (PORCINE) 40 MG/0.4 ML DISP.SYRIN SQ SCH (10:16)
[2021-02-02] MEDS: CEFTRIAXONE 1 GM in DEXTROSE 5%-WATER - 50 ML IVPB SCH (10:17)
== END 2021-02-02 14:13 | disposition home or self-care (01) ==
LOC: JER 08:59 → JERBED 15:07 → J4W 21:49 → UNDODISOB 02-01 21:19
PROVIDERS: ADMIT Internal Medicine; ATTEND Internal Medicine
PROC: 3E03329 Introduction of Other Anti-infective into Peripheral Vein, Percutaneous Approach (ICD-10-PCS; principal; 2021-01-31)
PROC: 3E033GC Introduction of Other Therapeutic Substance into Peripheral Vein, Percutaneous Approach (ICD-10-PCS; 2021-01-31)
PROC: 3E013VG Introduction of Insulin into Subcutaneous Tissue, Percutaneous Approach (ICD-10-PCS; 2021-01-31)
PROC: 3E013VG Introduction of Insulin into Subcutaneous Tissue, Percutaneous Approach (ICD-10-PCS; 2021-01-31)
PROC: 3E013VG Introduction of Insulin into Subcutaneous Tissue, Percutaneous Approach (ICD-10-PCS; 2021-01-31)
PROC: 3E013GC Introduction of Other Therapeutic Substance into Subcutaneous Tissue, Percutaneous Approach (ICD-10-PCS; 2021-01-31)
DX: H81.399 Other peripheral vertigo, unspecified ear (principal); H83.09 Labyrinthitis, unspecified ear; N39.0 Urinary tract infection, site not specified; E86.0 Dehydration; I25.10 Atherosclerotic heart disease of native coronary artery without angina pectoris; I10 Essential (primary) hypertension; E78.5 Hyperlipidemia, unspecified; E11.9 Type 2 diabetes mellitus without complications; Z79.4 Long term (current) use of insulin; M54.5 Low back pain; G89.29 Other chronic pain
CPT/HCPCS: 36415; 70450-TC; 70551-TC; 71045-TC-FY; 80048; 80053; 81003; 82550; 82962; 83036; 84484; 85025; 85610; 93005; 93010; 96372; 96374; 96375; 97116-GP; 97161-GP; 99285-25; C9803; G0378; U0003; U0005

== ENCOUNTER 2021-06-04 17:09 | Emergency (ER) | payer OTHER, BC ==
[2021-06-04 17:18] VITALS: TEMP 98.5; BMI 26.4
[2021-06-04] MEDS ORDERED: ACETAMINOPHEN 1000 MG/100 ML VIAL (NON FORMULARY) IVPB ONE (18:08)
[2021-06-04] MEDS ORDERED: SODIUM CHLORIDE 0.9% 500 ML INFUS.BAG IV ONE (18:08)
[2021-06-04] MEDS ORDERED: amLODIPine BESYLATE 10 MG TABLET (FP) PO ONE (18:15)
[2021-06-04 19:03] LABS: URINE APPEARANCE CLEAR; URINE BILIRUBIN NEGATIVE (NEGATIVE); URINE COLOR YELLOW; URINE GLUCOSE (UA) 3+ (NEGATIVE); URINE KETONE NEGATIVE (NEGATIVE); URINE LEUK ESTERASE NEGATIVE (NEGATIVE); URINE NITRITE NEGATIVE (NEGATIVE); URINE PROTEIN NEGATIVE (NEGATIVE)
[2021-06-04] MEDS ORDERED: amLODIPine BESYLATE 5 MG TABLET (FP) ONE (19:19)
[2021-06-04] MEDS ORDERED: ACETAMINOPHEN INJECTION 100 ML IVPB ONE (19:19)
[2021-06-04 19:57] LABS: BASO % 1.2 % (0-2.0); EOS % 2.4 % (0-4.5); HEMATOCRIT 37.9 % (32.4-45.2); HEMOGLOBIN 12.5 GM/dL (10.7-15.3); LYMPH % 29.3 % (8-40); MCHC 33.1 g/dl (32.0-36.0); MEAN CELL VOLUME 78.6 fl (80-96); MEAN PLT VOLUME 8.1 fl (7.5-11.1); MONO % 5.9 % (3.8-10.2); NEUT % 61.2 % (42.8-82.8); PLATELET COUNT 270 10^3/uL (134-434); RBC 4.83 M/mm3 (3.60-5.2); RDW 13.9 % (11.6-15.6); WHITE BLOOD COUNT 7.7 K/mm3 (4.0-10.0)
[2021-06-04 20:02] LABS: INR 0.95 (0.83-1.09); PROTHROMBIN TIME (PATIENT) 11.5 SEC (9.7-13.0)
[2021-06-04 20:04] LABS: ACTIVATED PTT 27.3 SECONDS (25.2-36.5)
[2021-06-04 20:17] LABS: CALCIUM 9.5 mg/dL (8.5-10.1)
[2021-06-04 20:18] LABS: ALBUMIN 4.1 g/dl (3.4-5.0); BLOOD UREA NITROGEN 10.3 mg/dL (7-18)
[2021-06-04 20:19] LABS: MAGNESIUM 1.3 mg/dL (1.8-2.4)
[2021-06-04 20:22] LABS: BILIRUBIN,TOTAL 0.8 mg/dL (0.2-1)
[2021-06-04 20:23] LABS: TOT PROT 8.3 g/dl (6.4-8.2)
[2021-06-04 20:41] VITALS: PULSE 78
[2021-06-04 23:48] VITALS: BP 170/85
== END 2021-06-04 23:49 | disposition home or self-care (01) ==
LOC: JER 17:09
PROC: 3E0337Z Introduction of Electrolytic and Water Balance Substance into Peripheral Vein, Percutaneous Approach (ICD-10-PCS; principal; 2021-06-04)
DX: R10.31 Right lower quadrant pain (principal)
CPT/HCPCS: 36415; 74177-TC; 80053; 81003; 82550; 83605; 83690; 83735; 84484; 85025; 85610; 85730; 87086; 93005; 93010; 96374; 99284-25; J0131; Q9967

== ENCOUNTER 2021-08-05 10:09 | Inpatient (IN) | payer OTHER, BC ==
[2021-08-05] MEDS ORDERED: LACTATED RINGERS SOLUTION 1000 ML INFUS.BAG IV ONE ×4 (10:33→14:57)
[2021-08-05] MEDS ORDERED: PIPERACILLIN/TAZOB 4.5 GM 4.5 GM in DEXTROSE 5%-WATER 100 ML IVPB ONE (11:19)
[2021-08-05] MEDS ORDERED: VANCOMYCIN 1 GM in D5W (PRE-DOCKED) 1,000 MG/250 ML IVPB ONE (11:20)
[2021-08-05] MEDS ORDERED: PIPERACILLIN/TAZOB 4.5 GM 4.5 GM/100 ML BAG IVPB ONE (11:35)
[2021-08-05] MEDS ORDERED: VANCOMYCIN 1 GRAM (PRE-DOCKED) 1,000 MG/250 ML BAG IVPB ONE (11:36)
[2021-08-05 12:13] LABS: BASO % 0.2 % (0-2.0); HEMATOCRIT 48.7 % (32.4-45.2); HEMOGLOBIN 13.3 GM/dL (10.7-15.3); LYMPH % 4.2 % (8-40); MCH 25.6 pg (25.7-33.7); MCHC 27.2 g/dl (32.0-36.0); MEAN CELL VOLUME 94.1 fl (80-96); MEAN PLT VOLUME 10.8 fl (7.5-11.1); MONO % 8.4 % (3.8-10.2); NEUT % 87.2 % (42.8-82.8); PLATELET COUNT 313 10^3/uL (134-434); RBC 5.17 M/mm3 (3.60-5.2); RDW 16.6 % (11.6-15.6); WHITE BLOOD COUNT 17.5 K/mm3 (4.0-10.0)
[2021-08-05 12:14] LABS: VENOUS BASE EXCESS -21.3 mmol/L (-2-2); VENOUS O2 SATURATION 69.3 % (70-80); VENOUS PCO2 29.8 mmHg (38-52)
[2021-08-05 12:16] LABS: VENOUS PH 7.05 (7.310-7.410)
[2021-08-05 12:18] LABS: INR 1.04 (0.83-1.09); PROTHROMBIN TIME (PATIENT) 12.2 SEC (9.7-13.0)
[2021-08-05 12:21] LABS: ACTIVATED PTT 27.2 SECONDS (25.2-36.5)
[2021-08-05 12:43] LABS: LACTIC ACID 3.6 mmol/L (0.4-2.0)
[2021-08-05] MEDS ORDERED: KCL 10 MEQ IVPB 20 MEQ/200 ML INFUS.BAG IVPB ONE (13:15)
[2021-08-05] MEDS ORDERED: INSULIN REGULAR 100 UNITS in SODIUM CHLORIDE 99 ML IVPB SCH (13:15)
[2021-08-05] MEDS ORDERED: SODIUM CHLORIDE 0.9%/KCL 20 MEQ/1,000 ML INFUS.BAG IV SCH ×2 (13:15→13:40)
[2021-08-05] MEDS: KCL 10 MEQ IVPB 10 MEQ/100 ML INFUS.BAG IVPB SCH ×2 (13:22→16:07)
[2021-08-05 13:52] LABS: ALK PHOS 163 U/L (45-117); ANION GAP 39 MMOL/L (8-16); BILIRUBIN,TOTAL 0.7 mg/dL (0.2-1); CALCIUM 9.6 mg/dL (8.5-10.1); CHLORIDE 86 mmol/L (98-107); CO2 8 mmol/L (21-32); CREATININE 5.4 mg/dL (0.55-1.3); GLUCOSE,RANDOM 1409 mg/dL (74-106); MAGNESIUM 4.8 mg/dL (1.8-2.4); SGOT/AST 14 U/L (15-37); SGPT/ALT 22 U/L (13-61); SODIUM 133 mmol/L (136-145); TOT PROT 8.4 g/dl (6.4-8.2)
[2021-08-05 14:07] LABS: EPI CELLS >36 /uL (0-25.1); HYALINE CASTS 12 /uL (0-3.1); URINE APPEARANCE CLOUDY; URINE BACTERIA 48 /uL (0-1359); URINE BILIRUBIN NEGATIVE (NEGATIVE); URINE COLOR YELLOW; URINE GLUCOSE (UA) 3+ (NEGATIVE); URINE KETONE NEGATIVE (NEGATIVE); URINE LEUK ESTERASE TRACE (NEGATIVE); URINE NITRITE NEGATIVE (NEGATIVE); URINE PROTEIN 2+ (NEGATIVE); URINE UROBILINOGEN 0.2 mg/dL (0.2-1.0); URINE WBC 55 /uL (0-25.8)
[2021-08-05 14:09] LABS: OPIATES, URI NEGATIVE (NEGATIVE)
[2021-08-05 14:10] LABS: COCAINE, UR NEGATIVE (NEGATIVE); METHADONE, UR NEGATIVE (NEGATIVE); PHENCYCLIDINE,URINE NEGATIVE (NEGATIVE); URINE BARBITURATES NEGATIVE (NEGATIVE); URINE BENZODIAZEPINES NEGATIVE (NEGATIVE)
[2021-08-05 14:11] LABS: URINE AMPHETAMINES NEGATIVE (NEGATIVE)
[2021-08-05 14:27] LABS: PHOSPHOROUS 11.2 mg/dL (2.5-4.9)
[2021-08-05 14:30] LABS: CHLORIDE 91 mmol/L (98-107); SODIUM 136 mmol/L (136-145)
[2021-08-05 14:31] LABS: CALCIUM 8.7 mg/dL (8.5-10.1)
[2021-08-05 14:36] LABS: CREATININE 4.7 mg/dL (0.55-1.3)
[2021-08-05 14:54] LABS: URINE RBC 28.5 /uL (0-23.9)
[2021-08-05 15:10] LABS: ANION GAP 38 MMOL/L (8-16); CO2 7 mmol/L (21-32); GLUCOSE,RANDOM 1378 mg/dL (74-106)
[2021-08-05 16:30] LABS: CHLORIDE 96 mmol/L (98-107); SODIUM 141 mmol/L (136-145)
[2021-08-05 16:32] LABS: ANION GAP 36 MMOL/L (8-16); CALCIUM 8.8 mg/dL (8.5-10.1); CO2 9 mmol/L (21-32)
[2021-08-05 16:36] LABS: CREATININE 4.5 mg/dL (0.55-1.3)
[2021-08-05] MEDS: PANTOPRAZOLE SODIUM 40 MG VIAL IVPUSH SCH (16:43)
[2021-08-05 16:50] LABS: BLOOD UREA NITROGEN 107.8 mg/dL (7-18); GLUCOSE,RANDOM 1128 mg/dL (74-106)
[2021-08-05] MEDS ORDERED: LACTATED RINGERS SOLUTION 1,000 ML/1,000 ML INFUS.BAG IV SCH (17:00)
[2021-08-05] MEDS ORDERED: SODIUM CHLORIDE 0.45%/POT 20 MEQ/1,000 ML INFUS.BAG IV SCH ×2 (17:30→17:47)
[2021-08-05] MEDS ORDERED: ONDANSETRON 4 MG/2 ML VIAL IVPUSH ONE (19:25)
[2021-08-05] MEDS ORDERED: ONDANSETRON 4 MG/2 ML VIAL ONE (19:28)
[2021-08-05 21:43] LABS: ARTERIAL BLD GAS O2 SATURATION 94.9 % (95-98); ARTERIAL BLOOD GAS BASE EXCESS -5.8 mmol/L (-2-2); ARTERIAL BLOOD GAS PO2 72.4 mmHg (80-100); ARTERIAL BLOOD GAS pH 7.404 (7.350-7.450)
[2021-08-05 21:46] LABS: ALLENS TEST POSITIVE
[2021-08-05 21:48] LABS: CHLORIDE 108 mmol/L (98-107); SODIUM 148 mmol/L (136-145)
[2021-08-05 21:50] LABS: ANION GAP 22 MMOL/L (8-16); BLOOD UREA NITROGEN 103.1 mg/dL (7-18); CALCIUM 9.1 mg/dL (8.5-10.1); CO2 18 mmol/L (21-32); LACTIC ACID 5.5 mmol/L (0.4-2.0)
[2021-08-05 21:54] LABS: CREATININE 4.1 mg/dL (0.55-1.3)
[2021-08-05] MEDS ORDERED: CHLORHEXIDINE GLUCONATE 4% CLEANSER FOR DECOLONIZATION TP SCH (22:00)
[2021-08-05 22:13] LABS: GLUCOSE,RANDOM 589 mg/dL (74-106)
[2021-08-05] MEDS: MUPIROCIN 2% TOPICAL OINTMENT FOR DECOLONIZATION NS SCH (22:58)
[2021-08-06] MEDS: HEPARIN NA (PORCINE) 5,000 UNITS/ML 1ML VIAL SQ SCH ×3 (00:50→22:07)
[2021-08-06 01:18] LABS: CALCIUM 8.9 mg/dL (8.5-10.1)
[2021-08-06 01:19] LABS: BLOOD UREA NITROGEN 90.7 mg/dL (7-18)
[2021-08-06 01:21] LABS: CREATININE 3.6 mg/dL (0.55-1.3)
[2021-08-06] MEDS ORDERED: D5-1/2NS+20 MEQ KCL - 20 MEQ/1,000 ML INFUS.BAG IV SCH ×2 (01:30→06:54)
[2021-08-06 02:48] LABS: LACTIC ACID 2.1 mmol/L (0.4-2.0)
[2021-08-06 03:49] LABS: CALCIUM 8.7 mg/dL (8.5-10.1)
[2021-08-06 03:50] LABS: BLOOD UREA NITROGEN 93.4 mg/dL (7-18)
[2021-08-06 03:53] LABS: CREATININE 3.2 mg/dL (0.55-1.3)
[2021-08-06 07:33] LABS: BASO % 0.2 % (0-2.0); EOS % 0.1 % (0-4.5); HEMATOCRIT 30.8 % (32.4-45.2); HEMOGLOBIN 10.3 GM/dL (10.7-15.3); MCH 26.3 pg (25.7-33.7); MCHC 33.6 g/dl (32.0-36.0); MEAN CELL VOLUME 78.3 fl (80-96); MEAN PLT VOLUME 9.5 fl (7.5-11.1); NEUT % 77.7 % (42.8-82.8); PLATELET COUNT 143 10^3/uL (134-434); RBC 3.94 M/mm3 (3.60-5.2); RDW 14.4 % (11.6-15.6); WHITE BLOOD COUNT 5.2 K/mm3 (4.0-10.0)
[2021-08-06 08:05] LABS: CALCIUM 8.8 mg/dL (8.5-10.1)
[2021-08-06 08:11] LABS: BILIRUBIN,TOTAL 0.5 mg/dL (0.2-1)
[2021-08-06 08:14] LABS: BLOOD UREA NITROGEN 84.2 mg/dL (7-18)
[2021-08-06 08:16] LABS: CREATININE 3.1 mg/dL (0.55-1.3); PHOSPHOROUS 2.6 mg/dL (2.5-4.9)
[2021-08-06 08:20] LABS: ALBUMIN 2.7 g/dl (3.4-5.0); TOT PROT 5.8 g/dl (6.4-8.2)
[2021-08-06] MEDS: PANTOPRAZOLE SODIUM 40 MG VIAL IVPUSH SCH (09:48)
[2021-08-06] MEDS: MUPIROCIN 2% TOPICAL OINTMENT FOR DECOLONIZATION NS SCH (09:49)
[2021-08-06] MEDS ORDERED: SODIUM CHLORIDE 0.45% 1,000 ML IV SCH (15:00)
[2021-08-06] MEDS ORDERED: INSULIN SLIDING SCALE (NOVOLOG) 1 VIAL SQ SCH ×3 (16:30→22:00)
[2021-08-06 17:31] LABS: CALCIUM 8.8 mg/dL (8.5-10.1)
[2021-08-06 17:32] LABS: BLOOD UREA NITROGEN 76.5 mg/dL (7-18)
[2021-08-06 17:36] LABS: CREATININE 2.4 mg/dL (0.55-1.3)
[2021-08-06] MEDS ORDERED: INSULIN (NOVOLOG) ASPART 100 UNITS/ML 10ML VIAL ONE (21:25)
[2021-08-06] MEDS ORDERED: MUPIROCIN 2% TOPICAL OINTMENT FOR DECOLONIZATION NS SCH (22:00)
[2021-08-06] MEDS ORDERED: HEPARIN NA (PORCINE) 5,000 UNITS/ML 1ML VIAL SQ SCH (22:00)
[2021-08-06] MEDS ORDERED: CHLORHEXIDINE GLUCONATE 4% CLEANSER FOR DECOLONIZATION TP SCH (22:00)
[2021-08-06] MEDS: SODIUM CHLORIDE 0.45% 1,000 ML IV SCH (22:07)
[2021-08-07] MEDS: INSULIN SLIDING SCALE (NOVOLOG) 1 VIAL SQ SCH ×4 (06:21→21:18)
[2021-08-07 09:15] LABS: BASO % 0.2 % (0-2.0); EOS % 0.3 % (0-4.5); HEMATOCRIT 32.3 % (32.4-45.2); HEMOGLOBIN 10.8 GM/dL (10.7-15.3); LYMPH % 12.5 % (8-40); MCH 26.6 pg (25.7-33.7); MCHC 33.5 g/dl (32.0-36.0); MEAN CELL VOLUME 79.4 fl (80-96); MEAN PLT VOLUME 9.3 fl (7.5-11.1); MONO % 6.7 % (3.8-10.2); NEUT % 80.3 % (42.8-82.8); PLATELET COUNT 127 10^3/uL (134-434); RBC 4.07 M/mm3 (3.60-5.2); RDW 15.2 % (11.6-15.6); WHITE BLOOD COUNT 7.3 K/mm3 (4.0-10.0)
[2021-08-07 09:39] LABS: CALCIUM 9.1 mg/dL (8.5-10.1)
[2021-08-07 09:40] LABS: MAGNESIUM 2.8 mg/dL (1.8-2.4)
[2021-08-07 09:43] LABS: CREATININE 1.6 mg/dL (0.55-1.3); PHOSPHOROUS 1.6 mg/dL (2.5-4.9)
[2021-08-07 09:56] LABS: BLOOD UREA NITROGEN 49.2 mg/dL (7-18)
[2021-08-07] MEDS ORDERED: CEFTRIAXONE 1 GM in DEXTROSE 5%-WATER - 50 ML IVPB SCH (10:00)
[2021-08-07] MEDS ORDERED: PANTOPRAZOLE SODIUM 40 MG VIAL IVPUSH SCH ×2 (10:00)
[2021-08-07] MEDS: SODIUM CHLORIDE 0.45% 1,000 ML IV SCH ×3 (11:04→18:14)
[2021-08-07] MEDS: HEPARIN NA (PORCINE) 5,000 UNITS/ML 1ML VIAL SQ SCH ×2 (11:05→21:17)
[2021-08-07] MEDS ORDERED: ACETAMINOPHEN 325 MG TABLET (FP) PO PRN (11:13)
[2021-08-07] MEDS ORDERED: POTASSIUM PHOSPHATE 15 MM in DEXTROSE 5%-WATER - 250 ML IVPB ONE (12:00)
[2021-08-07] MEDS ORDERED: PT OWN MED DRAWER 7, Y5N ONE (13:56)
[2021-08-07] MEDS: GABAPENTIN 100 MG CAPSULE PO SCH ×2 (14:34→21:16)
[2021-08-07] MEDS ORDERED: INSULIN (LEVEMIR) 100 UNITS/ML UNITS SQ SCH (22:00)
[2021-08-07] MEDS ORDERED: ATORVASTATIN CA 80 MG TABLET (FP) PO SCH (22:00)
[2021-08-07] MEDS ORDERED: ADENOSINE 6 MG/2 ML VIAL IVPUSH ONE (22:16)
[2021-08-07] MEDS ORDERED: LACTATED RINGERS SOLUTION 1000 ML INFUS.BAG IV ONE (22:22)
[2021-08-07] MEDS ORDERED: ENOXAPARIN NA (PORCINE) 100 MG/1 ML DISP.SYRIN SQ SCH (22:45)
[2021-08-08 01:16] LABS: BASO % 0.2 % (0-2.0); EOS % 1.4 % (0-4.5); HEMATOCRIT 30.4 % (32.4-45.2); HEMOGLOBIN 10.2 GM/dL (10.7-15.3); LYMPH % 21.8 % (8-40); MCH 26.4 pg (25.7-33.7); MCHC 33.5 g/dl (32.0-36.0); MEAN PLT VOLUME 9.1 fl (7.5-11.1); MONO % 8.2 % (3.8-10.2); NEUT % 68.4 % (42.8-82.8); PLATELET COUNT 113 10^3/uL (134-434); RBC 3.85 M/mm3 (3.60-5.2); RDW 15.1 % (11.6-15.6); WHITE BLOOD COUNT 7.5 K/mm3 (4.0-10.0)
[2021-08-08 01:37] LABS: INR 1.07 (0.83-1.09); PROTHROMBIN TIME (PATIENT) 12.5 SEC (9.7-13.0)
[2021-08-08 02:18] LABS: ALBUMIN 2.4 g/dl (3.4-5.0); BILIRUBIN,TOTAL 1.7 mg/dL (0.2-1); BLOOD UREA NITROGEN 29.7 mg/dL (7-18); CALCIUM 8.7 mg/dL (8.5-10.1); CREATININE 1.2 mg/dL (0.55-1.3); TOT PROT 5.6 g/dl (6.4-8.2)
[2021-08-08] MEDS: GABAPENTIN 100 MG CAPSULE PO SCH ×3 (05:51→21:10)
[2021-08-08] MEDS: SODIUM CHLORIDE 0.45% 1,000 ML IV SCH (05:52)
[2021-08-08] MEDS: INSULIN SLIDING SCALE (NOVOLOG) 1 VIAL SQ SCH ×4 (06:02→21:10)
[2021-08-08 06:07] LABS: ARTERIAL BLOOD GAS BASE EXCESS 0.9 mmol/L (-2-2); ARTERIAL BLOOD GAS PO2 104.5 mmHg (80-100); ARTERIAL BLOOD GAS pH 7.438 (7.350-7.450)
[2021-08-08 06:08] LABS: ALLENS TEST POSITIVE
[2021-08-08] MEDS: ACETAMINOPHEN 325 MG TABLET (FP) PO PRN (06:09)
[2021-08-08] MEDS: EZETIMIBE 10 MG TABLET (FP) PO SCH (09:29)
[2021-08-08] MEDS: ASPIRIN COATED 81 MG TABLET.EC PO SCH (09:29)
[2021-08-08] MEDS ORDERED: ASPIRIN COATED 81 MG TABLET.EC PO SCH (10:00)
[2021-08-08] MEDS ORDERED: PANTOPRAZOLE SODIUM 40 MG VIAL IVPUSH SCH (10:00)
[2021-08-08] MEDS ORDERED: EZETIMIBE 10 MG TABLET (FP) PO SCH (10:00)
[2021-08-08 10:59] LABS: ALBUMIN 2.7 g/dl (3.4-5.0); BLOOD UREA NITROGEN 27.5 mg/dL (7-18); CALCIUM 9.4 mg/dL (8.5-10.1); CREATININE 1.2 mg/dL (0.55-1.3); MAGNESIUM 2.5 mg/dL (1.8-2.4); PHOSPHOROUS 1.8 mg/dL (2.5-4.9); TOT PROT 6.1 g/dl (6.4-8.2)
[2021-08-08] MEDS ORDERED: traMADol HCL 50 MG TABLET PO PRN (11:01)
[2021-08-08] MEDS ORDERED: NAPH,MB-DB/K PH,MBDB POWDER PACKET PO ONE (11:42)
[2021-08-08] MEDS ORDERED: METOPROLOL TARTRATE 5 MG/5 ML VIAL ONE (17:13)
[2021-08-08] MEDS ORDERED: METOPROLOL TARTRATE 5 MG/5 ML VIAL IVPUSH ONE (17:45)
[2021-08-08] MEDS ORDERED: ADENOSINE 6 MG/2 ML VIAL IVPUSH ONE (17:49)
[2021-08-08 18:09] LABS: CALCIUM 8.7 mg/dL (8.5-10.1)
[2021-08-08 18:13] LABS: CREATININE 1.1 mg/dL (0.55-1.3)
[2021-08-08 18:18] LABS: BLOOD UREA NITROGEN 28.2 mg/dL (7-18)
[2021-08-08] MEDS: ATORVASTATIN CA 80 MG TABLET (FP) PO SCH (21:10)
[2021-08-08] MEDS: METOPROLOL TARTRATE 25 MG TABLET (FP) PO SCH (21:10)
[2021-08-08] MEDS ORDERED: INSULIN (LEVEMIR) 100 UNITS/ML UNITS SQ SCH (22:00)
[2021-08-08] MEDS ORDERED: METOPROLOL TARTRATE 25 MG TABLET (FP) PO SCH (22:00)
[2021-08-08] MEDS ORDERED: ENOXAPARIN NA (PORCINE) 100 MG/1 ML DISP.SYRIN SQ SCH (22:35)
[2021-08-09] MEDS: GABAPENTIN 100 MG CAPSULE PO SCH ×3 (05:50→21:21)
[2021-08-09] MEDS: SODIUM CHLORIDE 0.45% 1,000 ML IV SCH ×2 (05:50→09:47)
[2021-08-09] MEDS: INSULIN (LEVEMIR) 100 UNITS/ML UNITS SQ SCH ×2 (06:03→21:21)
[2021-08-09] MEDS: INSULIN SLIDING SCALE (NOVOLOG) 1 VIAL SQ SCH ×4 (06:03→21:22)
[2021-08-09 07:45] LABS: BASO % 0.3 % (0-2.0); EOS % 2.1 % (0-4.5); HEMATOCRIT 28.4 % (32.4-45.2); HEMOGLOBIN 9.3 GM/dL (10.7-15.3); LYMPH % 23.1 % (8-40); MCH 26.7 pg (25.7-33.7); MCHC 32.8 g/dl (32.0-36.0); MEAN CELL VOLUME 81.5 fl (80-96); MEAN PLT VOLUME 9.8 fl (7.5-11.1); MONO % 7.1 % (3.8-10.2); NEUT % 67.4 % (42.8-82.8); PLATELET COUNT 108 10^3/uL (134-434); RBC 3.48 M/mm3 (3.60-5.2); RDW 15.4 % (11.6-15.6); RETICULOCYTES 0.37 % (0.5-1.5); WHITE BLOOD COUNT 7.9 K/mm3 (4.0-10.0)
[2021-08-09 07:51] LABS: BILIRUBIN,DIRECT 0.3 mg/dL (0.0-0.2)
[2021-08-09] MEDS: METOPROLOL TARTRATE 25 MG TABLET (FP) PO SCH ×2 (09:42→21:21)
[2021-08-09] MEDS: PANTOPRAZOLE 40 MG TABLET PO SCH (09:42)
[2021-08-09] MEDS: ASPIRIN COATED 81 MG TABLET.EC PO SCH (09:42)
[2021-08-09] MEDS: EZETIMIBE 10 MG TABLET (FP) PO SCH (09:42)
[2021-08-09] MEDS: ACETAMINOPHEN 325 MG TABLET (FP) PO PRN (10:15)
[2021-08-09] MEDS: ATORVASTATIN CA 80 MG TABLET (FP) PO SCH (21:21)
[2021-08-10] MEDS: INSULIN (LEVEMIR) 100 UNITS/ML UNITS SQ SCH ×2 (06:08→22:18)
[2021-08-10] MEDS: INSULIN SLIDING SCALE (NOVOLOG) 1 VIAL SQ SCH ×4 (06:08→22:18)
[2021-08-10] MEDS: GABAPENTIN 100 MG CAPSULE PO SCH ×3 (06:08→22:21)
[2021-08-10 08:48] LABS: BASO % 0.2 % (0-2.0); EOS % 1.8 % (0-4.5); HEMOGLOBIN 8.9 GM/dL (10.7-15.3); LYMPH % 28.7 % (8-40); MCH 26.4 pg (25.7-33.7); MCHC 32.8 g/dl (32.0-36.0); MEAN CELL VOLUME 80.6 fl (80-96); MEAN PLT VOLUME 9.4 fl (7.5-11.1); MONO % 6.5 % (3.8-10.2); NEUT % 62.8 % (42.8-82.8); PLATELET COUNT 95 10^3/uL (134-434); RBC 3.36 M/mm3 (3.60-5.2); RDW 14.9 % (11.6-15.6); WHITE BLOOD COUNT 7.7 K/mm3 (4.0-10.0)
[2021-08-10] MEDS: ACETAMINOPHEN 325 MG TABLET (FP) PO PRN (09:04)
[2021-08-10] MEDS: METOPROLOL TARTRATE 25 MG TABLET (FP) PO SCH (09:04)
[2021-08-10] MEDS: PANTOPRAZOLE 40 MG TABLET PO SCH (09:04)
[2021-08-10] MEDS: ASPIRIN COATED 81 MG TABLET.EC PO SCH (09:04)
[2021-08-10] MEDS: EZETIMIBE 10 MG TABLET (FP) PO SCH (09:04)
[2021-08-10 09:05] LABS: CALCIUM 8.7 mg/dL (8.5-10.1)
[2021-08-10 09:06] LABS: ALBUMIN 2.6 g/dl (3.4-5.0)
[2021-08-10 09:09] LABS: CREATININE 0.8 mg/dL (0.55-1.3)
[2021-08-10] MEDS: SODIUM CHLORIDE 0.45% 1,000 ML IV SCH ×2 (09:09→14:19)
[2021-08-10 09:10] LABS: TOT PROT 5.7 g/dl (6.4-8.2)
[2021-08-10 09:11] LABS: BILIRUBIN,TOTAL 1.1 mg/dL (0.2-1)
[2021-08-10 15:45] VITALS: BMI 24.7
[2021-08-10 17:03] LABS: CALCIUM 8.5 mg/dL (8.5-10.1)
[2021-08-10 17:04] LABS: ALBUMIN 2.3 g/dl (3.4-5.0); BLOOD UREA NITROGEN 17.9 mg/dL (7-18)
[2021-08-10 17:07] LABS: CREATININE 0.9 mg/dL (0.55-1.3)
[2021-08-10 17:09] LABS: BILIRUBIN,TOTAL 0.8 mg/dL (0.2-1); TOT PROT 5.5 g/dl (6.4-8.2)
[2021-08-10] MEDS: metoPROLOL SUCCINATE 25 MG TAB.SR.24H (FP) PO SCH (18:13)
[2021-08-10] MEDS: ATORVASTATIN CA 80 MG TABLET (FP) PO SCH (22:21)
[2021-08-11] MEDS: SODIUM CHLORIDE 0.45% 1,000 ML IV SCH ×2 (05:54→10:05)
[2021-08-11] MEDS: GABAPENTIN 100 MG CAPSULE PO SCH (05:55)
[2021-08-11] MEDS: metoPROLOL SUCCINATE 25 MG TAB.SR.24H (FP) PO SCH ×3 (06:00→18:07)
[2021-08-11] MEDS: INSULIN (LEVEMIR) 100 UNITS/ML UNITS SQ SCH ×2 (06:01→21:43)
[2021-08-11] MEDS: INSULIN SLIDING SCALE (NOVOLOG) 1 VIAL SQ SCH ×4 (06:01→21:44)
[2021-08-11 07:03] LABS: BASO % 0.2 % (0-2.0); EOS % 1.7 % (0-4.5); HEMOGLOBIN 8.6 GM/dL (10.7-15.3); LYMPH % 26.4 % (8-40); MCH 26.7 pg (25.7-33.7); MCHC 32.9 g/dl (32.0-36.0); MEAN CELL VOLUME 81.2 fl (80-96); MEAN PLT VOLUME 10.2 fl (7.5-11.1); NEUT % 62.7 % (42.8-82.8); PLATELET COUNT 146 10^3/uL (134-434); RBC 3.21 M/mm3 (3.60-5.2); RDW 14.6 % (11.6-15.6); WHITE BLOOD COUNT 7.8 K/mm3 (4.0-10.0)
[2021-08-11] MEDS: ASPIRIN COATED 81 MG TABLET.EC PO SCH (10:05)
[2021-08-11] MEDS: PANTOPRAZOLE 40 MG TABLET PO SCH (10:05)
[2021-08-11] MEDS: EZETIMIBE 10 MG TABLET (FP) PO SCH (10:05)
[2021-08-11] MEDS ORDERED: ACETAMINOPHEN WITH CODEINE 300MG/30MG TABLET PO PRN (12:14)
[2021-08-11] MEDS: ATORVASTATIN CA 80 MG TABLET (FP) PO SCH (21:43)
[2021-08-12] MEDS: INSULIN (LEVEMIR) 100 UNITS/ML UNITS SQ SCH ×2 (06:00→21:28)
[2021-08-12] MEDS: INSULIN SLIDING SCALE (NOVOLOG) 1 VIAL SQ SCH ×4 (06:00→21:28)
[2021-08-12] MEDS: metoPROLOL SUCCINATE 25 MG TAB.SR.24H (FP) PO SCH ×2 (06:00→18:28)
[2021-08-12] MEDS: ASPIRIN COATED 81 MG TABLET.EC PO SCH (09:40)
[2021-08-12] MEDS: PANTOPRAZOLE 40 MG TABLET PO SCH (09:40)
[2021-08-12] MEDS: SODIUM CHLORIDE 0.45% 1,000 ML IV SCH ×2 (09:40→11:51)
[2021-08-12] MEDS: EZETIMIBE 10 MG TABLET (FP) PO SCH (09:40)
[2021-08-12] MEDS: ATORVASTATIN CA 80 MG TABLET (FP) PO SCH (21:28)
[2021-08-13] MEDS: INSULIN SLIDING SCALE (NOVOLOG) 1 VIAL SQ SCH ×3 (06:17→17:09)
[2021-08-13] MEDS: metoPROLOL SUCCINATE 25 MG TAB.SR.24H (FP) PO SCH (06:17)
[2021-08-13] MEDS: INSULIN (LEVEMIR) 100 UNITS/ML UNITS SQ SCH (06:17)
[2021-08-13] MEDS: ASPIRIN COATED 81 MG TABLET.EC PO SCH (10:44)
[2021-08-13] MEDS: EZETIMIBE 10 MG TABLET (FP) PO SCH (10:45)
[2021-08-13] MEDS: PANTOPRAZOLE 40 MG TABLET PO SCH (10:45)
[2021-08-13] MEDS ORDERED: INSULIN SLIDING SCALE (NOVOLOG) 1 VIAL SQ ONE (12:08)
[2021-08-13 15:07] VITALS: BP 127/90; PULSE 81; TEMP 98.4
== END 2021-08-13 18:16 | DRG 637 ==
LOC: JER 10:09 → JERBED 13:11 → JICU 14:35 → J6S 08-06 19:32 → J4S 08-08 05:30
PROVIDERS: ADMIT Internal Medicine Pulmonary Disease; ATTEND Internal Medicine
PROC: 05HM33Z Insertion of Infusion Device into Right Internal Jugular Vein, Percutaneous Approach (ICD-10-PCS; principal; 2021-08-05)
PROC: B543ZZA Ultrasonography of Right Jugular Veins, Guidance (ICD-10-PCS; 2021-08-05)
DX: E11.10 Type 2 diabetes mellitus with ketoacidosis without coma (principal); G93.41 Metabolic encephalopathy; N39.0 Urinary tract infection, site not specified; N17.9 Acute kidney failure, unspecified; E87.1 Hypo-osmolality and hyponatremia; E87.0 Hyperosmolality and hypernatremia; R64 Cachexia; I47.1 Supraventricular tachycardia; E87.2 Acidosis; E11.65 Type 2 diabetes mellitus with hyperglycemia; E78.5 Hyperlipidemia, unspecified; R56.9 Unspecified convulsions; I10 Essential (primary) hypertension; E86.0 Dehydration; R42 Dizziness and giddiness; I95.9 Hypotension, unspecified; E87.5 Hyperkalemia; H40.9 Unspecified glaucoma; D72.829 Elevated white blood cell count, unspecified; D69.6 Thrombocytopenia, unspecified; Z91.14 Patient's other noncompliance with medication regimen
CPT/HCPCS: 36415; 36600; 70450-TC; 71045-TC-FY; 71275-TC; 72125-TC; 73523-TC-FY; 74176-TC; 80048; 80053; 80307; 81003; 82010; 82248; 82542; 82570; 82607; 82728; 82803; 82962; 83010; 83036; 83540; 83550; 83605; 83615; 83735; 83935; 84100; 84300; 84439; 84443; 84484; 85025; 85045; 85610; 85730; 86022; 86038; 86705; 86708; 86850; 86900; 86901; 87040; 87077; 87086; 87340; 87517; 87804; 87899; 87902; 93005; 93010; 93306-TC; 93970-TC; 97116-GP; 97161-GP; 99291; C9803; J1644; J3480; U0003; U0005

== ENCOUNTER 2021-08-31 15:30 | Observation (INO) | payer OTHER, BC ==
[2021-08-31 15:50] VITALS: BMI 24.4
[2021-08-31] MEDS ORDERED: MECLIZINE HCL 25 MG TABLET (FP) PO ONE ×2 (16:27→18:26)
[2021-08-31] MEDS ORDERED: MECLIZINE HCL 25 MG TABLET (FP) ONE ×2 (16:33→19:35)
[2021-08-31 18:45] LABS: BASO % 0.6 % (0-2.0); EOS % 1.2 % (0-4.5); HEMATOCRIT 29.7 % (32.4-45.2); HEMOGLOBIN 9.6 GM/dL (10.7-15.3); LYMPH % 10.8 % (8-40); MCH 26.8 pg (25.7-33.7); MCHC 32.4 g/dl (32.0-36.0); MEAN CELL VOLUME 82.8 fl (80-96); MEAN PLT VOLUME 8.7 fl (7.5-11.1); MONO % 8.7 % (3.8-10.2); NEUT % 78.7 % (42.8-82.8); PLATELET COUNT 256 10^3/uL (134-434); RBC 3.58 M/mm3 (3.60-5.2); RDW 16.2 % (11.6-15.6); WHITE BLOOD COUNT 7.4 K/mm3 (4.0-10.0)
[2021-08-31 19:05] LABS: CHLORIDE 108 mmol/L (98-107); SODIUM 142 mmol/L (136-145)
[2021-08-31 19:08] LABS: ANION GAP 7 MMOL/L (8-16); BLOOD UREA NITROGEN 14.8 mg/dL (7-18); CALCIUM 8.6 mg/dL (8.5-10.1); CO2 26 mmol/L (21-32); GLUCOSE,RANDOM 176 mg/dL (74-106)
[2021-08-31 19:11] LABS: CREATININE 0.8 mg/dL (0.55-1.3); SGOT/AST 34 U/L (15-37); SGPT/ALT 19 U/L (13-61)
[2021-08-31 19:13] LABS: BILIRUBIN,TOTAL 0.5 mg/dL (0.2-1); TOT PROT 6.3 g/dl (6.4-8.2)
[2021-08-31 19:14] LABS: ALK PHOS 83 U/L (45-117)
[2021-08-31 19:33] LABS: URINE APPEARANCE CLOUDY; URINE BILIRUBIN NEGATIVE (NEGATIVE); URINE COLOR DK YELLOW; URINE GLUCOSE (UA) 2+ (NEGATIVE); URINE KETONE TRACE (NEGATIVE); URINE LEUK ESTERASE NEGATIVE (NEGATIVE); URINE NITRITE NEGATIVE (NEGATIVE); URINE PROTEIN TRACE (NEGATIVE)
[2021-08-31] MEDS ORDERED: diazePAM 2 MG TABLET PO ONE (21:26)
[2021-08-31] MEDS ORDERED: diazePAM 2 MG TABLET ONE (22:08)
[2021-08-31] MEDS ORDERED: POLYETHYLENE GLYCOL (HEALTHYLAX) 3350 17 GM PACKET PO PRN (22:44)
[2021-09-01] MEDS ORDERED: MECLIZINE HCL 25 MG TABLET (FP) PO PRN (04:00)
[2021-09-01] MEDS: INSULIN SLIDING SCALE (NOVOLOG) 1 VIAL SQ SCH ×4 (08:11→21:45)
[2021-09-01 08:28] LABS: BASO % 0.9 % (0-2.0); EOS % 4.4 % (0-4.5); HEMATOCRIT 26.4 % (32.4-45.2); HEMOGLOBIN 8.5 GM/dL (10.7-15.3); LYMPH % 30.9 % (8-40); MCH 26.6 pg (25.7-33.7); MCHC 32.1 g/dl (32.0-36.0); MONO % 9.9 % (3.8-10.2); NEUT % 53.9 % (42.8-82.8); PLATELET COUNT 212 10^3/uL (134-434); RBC 3.18 M/mm3 (3.60-5.2); RDW 15.9 % (11.6-15.6); WHITE BLOOD COUNT 5.7 K/mm3 (4.0-10.0)
[2021-09-01 08:43] LABS: BLOOD UREA NITROGEN 13.9 mg/dL (7-18)
[2021-09-01 08:46] LABS: CREATININE 0.8 mg/dL (0.55-1.3)
[2021-09-01 08:59] LABS: INR 1.13 (0.83-1.09)
[2021-09-01] MEDS ORDERED: PATIENT'S OWN MEDICATION (NON-FORMULARY) (Dorzolamide Hcl/Timolol Maleat [Dorzolamide-Timo OU SCH (10:00)
[2021-09-01] MEDS ORDERED: METOPROLOL TARTRATE 25 MG TABLET (FP) ONE (10:42)
[2021-09-01] MEDS ORDERED: ASPIRIN COATED 81 MG TABLET.EC ONE (10:42)
[2021-09-01] MEDS ORDERED: CHOLECALCIFEROL (VIT D3) 1,000 UNIT (25 MCG) TABLET ONE (10:42)
[2021-09-01] MEDS ORDERED: ENOXAPARIN NA (PORCINE) 40 MG/0.4 ML DISP.SYRIN SQ ONE (10:43)
[2021-09-01] MEDS: ENOXAPARIN NA (PORCINE) 40 MG/0.4 ML DISP.SYRIN SQ SCH (10:55)
[2021-09-01] MEDS: ASPIRIN COATED 81 MG TABLET.EC PO SCH (10:55)
[2021-09-01] MEDS: METOPROLOL TARTRATE 25 MG TABLET (FP) PO SCH ×2 (10:55→21:44)
[2021-09-01] MEDS: CHOLECALCIFEROL (VIT D3) 1,000 UNIT (25 MCG) TABLET PO SCH (10:56)
[2021-09-01] MEDS: EZETIMIBE 10 MG TABLET (FP) PO SCH (10:56)
[2021-09-01] MEDS: TIMOLOL 0.5% OPHTHALMIC SOL 5 ML BOTTLE OU SCH (11:01)
[2021-09-01] MEDS: BRIMONIDINE TARTRATE 0.1% OPHTHALMIC 5 ML BOTTLE OU SCH ×3 (11:01→21:45)
[2021-09-01] MEDS: DORZOLAMIDE 2% HCL OPHTHALMIC SOLUTION 10 ML BOTTLE OU SCH (11:02)
[2021-09-01] MEDS ORDERED: ACETAMINOPHEN 325 MG TABLET (FP) ONE (11:11)
[2021-09-01] MEDS: ACETAMINOPHEN 325 MG TABLET (FP) PO PRN (11:13)
[2021-09-01] MEDS: ATORVASTATIN CA 80 MG TABLET (FP) PO SCH (21:44)
[2021-09-01] MEDS ORDERED: PT OWN MED DRAWER 7, Y5N ONE (21:52)
[2021-09-01] MEDS ORDERED: diazePAM 2 MG TABLET PO ONE (22:42)
[2021-09-02] MEDS ORDERED: diazePAM 2 MG TABLET PO ONE (02:15)
[2021-09-02] MEDS: TIMOLOL 0.5% OPHTHALMIC SOL 5 ML BOTTLE OU SCH ×3 (02:22→22:20)
[2021-09-02] MEDS: DORZOLAMIDE 2% HCL OPHTHALMIC SOLUTION 10 ML BOTTLE OU SCH ×3 (02:22→22:20)
[2021-09-02] MEDS: INSULIN SLIDING SCALE (NOVOLOG) 1 VIAL SQ SCH ×4 (06:30→22:19)
[2021-09-02] MEDS: BRIMONIDINE TARTRATE 0.1% OPHTHALMIC 5 ML BOTTLE OU SCH ×3 (06:32→22:21)
[2021-09-02] MEDS: METOPROLOL TARTRATE 25 MG TABLET (FP) PO SCH ×2 (09:42→22:18)
[2021-09-02] MEDS: ACETAMINOPHEN 325 MG TABLET (FP) PO PRN (09:42)
[2021-09-02] MEDS: CHOLECALCIFEROL (VIT D3) 1,000 UNIT (25 MCG) TABLET PO SCH (09:42)
[2021-09-02] MEDS: ASPIRIN COATED 81 MG TABLET.EC PO SCH (09:43)
[2021-09-02] MEDS: ENOXAPARIN NA (PORCINE) 40 MG/0.4 ML DISP.SYRIN SQ SCH (09:43)
[2021-09-02] MEDS: INSULIN (LEVEMIR) 100 UNITS/ML UNITS SQ SCH ×2 (09:44→09:58)
[2021-09-02] MEDS: EZETIMIBE 10 MG TABLET (FP) PO SCH (09:46)
[2021-09-02] MEDS ORDERED: PT OWN MED DRAWER 7, Y5N ONE (09:46)
[2021-09-02] MEDS ORDERED: INSULIN (LEVEMIR) 100 UNITS/ML UNITS SQ SCH (13:35)
[2021-09-02] MEDS: ATORVASTATIN CA 80 MG TABLET (FP) PO SCH (22:26)
[2021-09-03] MEDS: INSULIN SLIDING SCALE (NOVOLOG) 1 VIAL SQ SCH ×2 (06:20→13:17)
[2021-09-03] MEDS: BRIMONIDINE TARTRATE 0.1% OPHTHALMIC 5 ML BOTTLE OU SCH ×2 (06:20→16:38)
[2021-09-03] MEDS: ENOXAPARIN NA (PORCINE) 40 MG/0.4 ML DISP.SYRIN SQ SCH (13:03)
[2021-09-03] MEDS: CHOLECALCIFEROL (VIT D3) 1,000 UNIT (25 MCG) TABLET PO SCH (13:03)
[2021-09-03] MEDS: METOPROLOL TARTRATE 25 MG TABLET (FP) PO SCH (13:04)
[2021-09-03] MEDS: ASPIRIN COATED 81 MG TABLET.EC PO SCH (13:04)
[2021-09-03] MEDS: DORZOLAMIDE 2% HCL OPHTHALMIC SOLUTION 10 ML BOTTLE OU SCH (13:07)
[2021-09-03] MEDS: TIMOLOL 0.5% OPHTHALMIC SOL 5 ML BOTTLE OU SCH (13:07)
[2021-09-03 15:57] VITALS: BP 129/57; PULSE 97; TEMP 97.8
[2021-09-03] MEDS: EZETIMIBE 10 MG TABLET (FP) PO SCH (16:38)
== END 2021-09-03 16:39 | disposition home or self-care (01) ==
LOC: JER 15:30 → JERBED 21:58 → J7W 09-01 13:57
PROVIDERS: ADMIT Hospitalist; ATTEND Internal Medicine
PROC: 3E023GC Introduction of Other Therapeutic Substance into Muscle, Percutaneous Approach (ICD-10-PCS; principal; 2021-08-31)
PROC: 3E013VG Introduction of Insulin into Subcutaneous Tissue, Percutaneous Approach (ICD-10-PCS; 2021-08-31)
DX: E11.649 Type 2 diabetes mellitus with hypoglycemia without coma (principal); I10 Essential (primary) hypertension; E78.5 Hyperlipidemia, unspecified; R42 Dizziness and giddiness; Z87.891 Personal history of nicotine dependence; D64.9 Anemia, unspecified; Z86.39 Personal history of other endocrine, nutritional and metabolic disease; R41.82 Altered mental status, unspecified; Z86.79 Personal history of other diseases of the circulatory system; Z88.8 Allergy status to other drugs, medicaments and biological substances
CPT/HCPCS: 36415; 80048; 80053; 81003; 82550; 82962; 83036; 84484; 85025; 85610; 85730; 93005; 93010; 96372; 97116-GP; 97161-GP; 99285-25; C9803-CS; G0378; U0003; U0005

== ENCOUNTER 2022-05-23 17:44 | Inpatient (IN) | payer OTHER, BC ==
[2022-05-23 18:14] VITALS: BMI 24.5
[2022-05-23] MEDS ORDERED: ACETAMINOPHEN 1000 MG/100 ML BAG IVPB ONE (19:23)
[2022-05-23] MEDS ORDERED: ACETAMINOPHEN INJECTION 100 ML IVPB ONE (20:15)
[2022-05-23 21:31] LABS: BASO % 0.4 % (0-2.0); HEMATOCRIT 39.7 % (32.4-45.2); LYMPH % 12.1 % (8-40); MCHC 32.7 g/dl (32.0-36.0); MEAN CELL VOLUME 79.6 fl (80-96); MEAN PLT VOLUME 9.7 fl (7.5-11.1); MONO % 4.2 % (3.8-10.2); NEUT % 83.3 % (42.8-82.8); PLATELET COUNT 270 10^3/uL (134-434); RBC 4.99 M/mm3 (3.60-5.2); RDW 14.2 % (11.6-15.6); WHITE BLOOD COUNT 13.5 K/mm3 (4.0-10.0)
[2022-05-23 21:48] LABS: CALCIUM 10.6 mg/dL (8.5-10.1)
[2022-05-23 21:49] LABS: ALBUMIN 0.4 g/dl (3.4-5.0); BLOOD UREA NITROGEN 27.6 mg/dL (7-18); MAGNESIUM 1.8 mg/dL (1.8-2.4)
[2022-05-23 21:53] LABS: TOT PROT 9.2 g/dl (6.4-8.2)
[2022-05-23 21:54] LABS: INR 0.98 (0.83-1.09); PROTHROMBIN TIME (PATIENT) 11.3 SEC (9.7-13.0)
[2022-05-23 21:54] LABS: BILIRUBIN,TOTAL 0.6 mg/dL (0.2-1)
[2022-05-23 21:57] LABS: ACTIVATED PTT 26.4 SECONDS (25.2-36.5)
[2022-05-23 23:46] LABS: EPI CELLS 63 /uL (0-25.1); HYALINE CASTS 3 /uL (0-3.1); URINE APPEARANCE CLOUDY; URINE BACTERIA 1130 /uL (0-1359); URINE BILIRUBIN NEGATIVE (NEGATIVE); URINE COLOR YELLOW; URINE GLUCOSE (UA) 2+ (NEGATIVE); URINE KETONE NEGATIVE (NEGATIVE); URINE LEUK ESTERASE NEGATIVE (NEGATIVE); URINE NITRITE NEGATIVE (NEGATIVE); URINE PROTEIN 1+ (NEGATIVE); URINE RBC 12 /uL (0-23.9); URINE UROBILINOGEN 0.2 mg/dL (0.2-1.0); URINE WBC 44 /uL (0-25.8)
[2022-05-24] MEDS ORDERED: SODIUM CHLORIDE 1,000 ML IV SCH ×2 (06:15→10:45)
[2022-05-24] MEDS ORDERED: DEXTROSE 5%-0.45% SALINE 1,000 ML IV SCH (06:30)
[2022-05-24] MEDS: BRIMONIDINE TARTRATE 0.1% OPHTHALMIC 5 ML BOTTLE OU SCH ×3 (06:55→22:14)
[2022-05-24 07:13] LABS: BASO % 0.9 % (0-2.0); EOS % 0.8 % (0-4.5); HEMATOCRIT 35.3 % (32.4-45.2); HEMOGLOBIN 11.6 GM/dL (10.7-15.3); LYMPH % 26.6 % (8-40); MCH 25.8 pg (25.7-33.7); MCHC 32.8 g/dl (32.0-36.0); MEAN CELL VOLUME 78.8 fl (80-96); MEAN PLT VOLUME 9.4 fl (7.5-11.1); MONO % 4.8 % (3.8-10.2); NEUT % 66.9 % (42.8-82.8); PLATELET COUNT 248 10^3/uL (134-434); RBC 4.49 M/mm3 (3.60-5.2); RDW 14.1 % (11.6-15.6); WHITE BLOOD COUNT 8.6 K/mm3 (4.0-10.0)
[2022-05-24] MEDS ORDERED: ERYTHROMYCIN 0.5% OPHTHALMIC OINTMENT 3.5 GM TUBE OU ONE (07:15)
[2022-05-24] MEDS ORDERED: PHYTONADIONE NEONATAL 1 MG/0.5 ML AMP IM ONE (07:15)
[2022-05-24 07:38] LABS: CHLORIDE 99 mmol/L (98-107); SODIUM 138 mmol/L (136-145)
[2022-05-24 07:48] LABS: BILIRUBIN,TOTAL 0.7 mg/dL (0.2-1); LDL CHOLESTEROL (ONLY SJRH) 244 mg/dL (5-100)
[2022-05-24 07:49] LABS: CHOLESTEROL 379 mg/dL (50-200)
[2022-05-24 07:50] LABS: BLOOD UREA NITROGEN 34.2 mg/dL (7-18); CALCIUM 9.6 mg/dL (8.5-10.1); CREATININE 1.6 mg/dL (0.55-1.3); SGOT/AST 28 U/L (15-37); SGPT/ALT 30 U/L (13-61); TRIGLYCERIDES 170 mg/dL (0-150)
[2022-05-24 07:51] LABS: ANION GAP 7 MMOL/L (8-16); CO2 32 mmol/L (21-32); GLUCOSE,RANDOM 240 mg/dL (74-106); MAGNESIUM 1.9 mg/dL (1.8-2.4)
[2022-05-24 08:27] LABS: HDL CHOLESTEROL 65 mg/dL (40-60)
[2022-05-24 09:08] LABS: ALBUMIN 3.8 g/dl (3.4-5.0); ALK PHOS 131 U/L (45-117)
[2022-05-24] MEDS ORDERED: ASPIRIN COATED 81 MG TABLET.EC ONE (09:23)
[2022-05-24] MEDS: ASPIRIN COATED 81 MG TABLET.EC PO SCH (09:30)
[2022-05-24] MEDS ORDERED: PATIENT'S OWN MEDICATION (NON-FORMULARY) (Dorzolamide Hcl/Timolol Maleat [Dorzolamide-Timo OU SCH (10:00)
[2022-05-24] MEDS: TIMOLOL 0.5% OPHTHALMIC SOL 5 ML BOTTLE OU SCH ×2 (12:40→22:07)
[2022-05-24] MEDS: DORZOLAMIDE 2% HCL OPHTHALMIC SOLUTION 10 ML BOTTLE OU SCH ×2 (12:41→22:14)
[2022-05-24] MEDS: EZETIMIBE 10 MG TABLET (FP) PO SCH (12:41)
[2022-05-24] MEDS ORDERED: FLU VACC QS2022-23(6MOS UP)/PF 60 MCG/0.5 ML SYRINGE IM ONE (12:54)
[2022-05-24] MEDS: INSULIN (LEVEMIR) 100 UNITS/ML UNITS SQ SCH ×2 (13:33→22:20)
[2022-05-24] MEDS: INSULIN SLIDING SCALE (NOVOLOG) 1 VIAL SQ SCH ×3 (13:33→22:20)
[2022-05-24] MEDS ORDERED: SODIUM CHLORIDE 250 ML IV STA (18:58)
[2022-05-24] MEDS: ATORVASTATIN CA 80 MG TABLET (FP) PO SCH (22:06)
[2022-05-24] MEDS: SODIUM CHLORIDE 1,000 ML IV SCH (22:06)
[2022-05-25] MEDS: SODIUM CHLORIDE 1,000 ML IV SCH ×2 (03:57→19:06)
[2022-05-25] MEDS: INSULIN SLIDING SCALE (NOVOLOG) 1 VIAL SQ SCH ×4 (06:37→23:26)
[2022-05-25] MEDS: BRIMONIDINE TARTRATE 0.1% OPHTHALMIC 5 ML BOTTLE OU SCH ×3 (06:39→23:27)
[2022-05-25] MEDS: ASPIRIN COATED 81 MG TABLET.EC PO SCH (09:43)
[2022-05-25] MEDS: EZETIMIBE 10 MG TABLET (FP) PO SCH (09:43)
[2022-05-25] MEDS: DORZOLAMIDE 2% HCL OPHTHALMIC SOLUTION 10 ML BOTTLE OU SCH ×2 (09:45→23:28)
[2022-05-25] MEDS: TIMOLOL 0.5% OPHTHALMIC SOL 5 ML BOTTLE OU SCH ×2 (09:46→23:27)
[2022-05-25] MEDS: INSULIN (LEVEMIR) 100 UNITS/ML UNITS SQ SCH ×2 (11:23→23:25)
[2022-05-25] MEDS ORDERED: POTASSIUM CHLORIDE TABS 20 MEQ TABLET.ER (FP) PO ONE (15:34)
[2022-05-25] MEDS: ATORVASTATIN CA 80 MG TABLET (FP) PO SCH (23:26)
[2022-05-26] MEDS: INSULIN SLIDING SCALE (NOVOLOG) 1 VIAL SQ SCH ×4 (06:22→23:21)
[2022-05-26] MEDS: BRIMONIDINE TARTRATE 0.1% OPHTHALMIC 5 ML BOTTLE OU SCH ×3 (06:37→23:21)
[2022-05-26 07:54] LABS: CALCIUM 8.6 mg/dL (8.5-10.1)
[2022-05-26 07:55] LABS: BLOOD UREA NITROGEN 25.5 mg/dL (7-18)
[2022-05-26] MEDS: ASPIRIN COATED 81 MG TABLET.EC PO SCH (09:21)
[2022-05-26] MEDS: INSULIN (LEVEMIR) 100 UNITS/ML UNITS SQ SCH ×3 (09:22→19:11)
[2022-05-26] MEDS: EZETIMIBE 10 MG TABLET (FP) PO SCH (09:22)
[2022-05-26] MEDS: DORZOLAMIDE 2% HCL OPHTHALMIC SOLUTION 10 ML BOTTLE OU SCH ×2 (09:24→23:20)
[2022-05-26] MEDS: TIMOLOL 0.5% OPHTHALMIC SOL 5 ML BOTTLE OU SCH ×3 (09:24→23:19)
[2022-05-26] MEDS: SODIUM CHLORIDE 1,000 ML IV SCH ×2 (11:29→14:37)
[2022-05-26] MEDS ORDERED: INSULIN (NOVOLOG MIX 70/30) 100 UNITS/ML MDV SQ ONE (13:53)
[2022-05-26] MEDS: ATORVASTATIN CA 80 MG TABLET (FP) PO SCH (23:20)
[2022-05-27] MEDS: INSULIN (LEVEMIR) 100 UNITS/ML UNITS SQ SCH ×2 (06:11→17:26)
[2022-05-27] MEDS: INSULIN SLIDING SCALE (NOVOLOG) 1 VIAL SQ SCH ×3 (06:12→17:26)
[2022-05-27] MEDS: BRIMONIDINE TARTRATE 0.1% OPHTHALMIC 5 ML BOTTLE OU SCH ×2 (06:12→14:22)
[2022-05-27 08:43] VITALS: RESP 18
[2022-05-27] MEDS ORDERED: REGADENOSON 0.4 MG/5 ML PRE-FILLED SYRINGE IVPUSH ONE ×2 (09:32→10:30)
[2022-05-27] MEDS: ASPIRIN COATED 81 MG TABLET.EC PO SCH (12:19)
[2022-05-27] MEDS: EZETIMIBE 10 MG TABLET (FP) PO SCH (12:19)
[2022-05-27] MEDS: DORZOLAMIDE 2% HCL OPHTHALMIC SOLUTION 10 ML BOTTLE OU SCH (12:20)
[2022-05-27] MEDS: TIMOLOL 0.5% OPHTHALMIC SOL 5 ML BOTTLE OU SCH (12:21)
[2022-05-27 16:30] VITALS: BP 149/88; PULSE 82; TEMP 97.6
== END 2022-05-27 18:43 | disposition home or self-care (01) | DRG 312 ==
LOC: JER 17:44 → JERBED 05-24 00:07 → J4W 05-24 12:48
PROVIDERS: ADMIT Internal Medicine; ATTEND Internal Medicine
DX: R55 Syncope and collapse (principal); I10 Essential (primary) hypertension; E78.5 Hyperlipidemia, unspecified; D64.9 Anemia, unspecified; I12.9 Hypertensive chronic kidney disease with stage 1 through stage 4 chronic kidney disease, or unspecified chronic kidney disease; E11.22 Type 2 diabetes mellitus with diabetic chronic kidney disease; N18.9 Chronic kidney disease, unspecified; Z79.4 Long term (current) use of insulin; E86.0 Dehydration; E11.65 Type 2 diabetes mellitus with hyperglycemia; R29.810 Facial weakness
CPT/HCPCS: 36415; 70450-TC; 70496-TC; 70498-TC; 70551-TC; 71045-TC-FY; 78452-TC; 80048; 80053; 80061; 81003; 82550; 82553; 82962; 83036; 83735; 84443; 84484; 85025; 85610; 85730; 87077; 87086; 93005; 93010; 93017; 93306-TC; 99285-25; A9502; C9803-CS; G0008; J2785; Q2036; U0003; U0005

== ENCOUNTER 2022-06-26 16:04 | Observation (INO) | payer OTHER, BC ==
[2022-06-26 22:22] LABS: BASO % 0.5 % (0-2.0); EOS % 0.8 % (0-4.5); HEMATOCRIT 33.7 % (32.4-45.2); HEMOGLOBIN 11.1 GM/dL (10.7-15.3); LYMPH % 18.1 % (8-40); MCH 26.9 pg (25.7-33.7); MEAN CELL VOLUME 81.4 fl (80-96); MONO % 5.5 % (3.8-10.2); NEUT % 75.1 % (42.8-82.8); PLATELET COUNT 290 10^3/uL (134-434); RBC 4.13 M/mm3 (3.60-5.2); RDW 14.3 % (11.6-15.6); WHITE BLOOD COUNT 7.9 K/mm3 (4.0-10.0)
[2022-06-26 22:45] LABS: ALBUMIN 3.9 g/dl (3.4-5.0); CALCIUM 9.2 mg/dL (8.5-10.1)
[2022-06-26 22:46] LABS: BLOOD UREA NITROGEN 42.5 mg/dL (7-18)
[2022-06-26 22:49] LABS: CREATININE 1.9 mg/dL (0.55-1.3)
[2022-06-26 22:50] LABS: TOT PROT 7.9 g/dl (6.4-8.2)
[2022-06-26 22:51] LABS: BILIRUBIN,TOTAL 0.6 mg/dL (0.2-1)
[2022-06-27] MEDS ORDERED: MECLIZINE HCL 25 MG TABLET (FP) PO PRN (03:26)
[2022-06-27 07:19] VITALS: BMI 27.6
[2022-06-27] MEDS: BRIMONIDINE TARTRATE 0.1% OPHTHALMIC 5 ML BOTTLE OU SCH ×4 (08:00→22:16)
[2022-06-27 08:02] LABS: BASO % 0.7 % (0-2.0); EOS % 2.1 % (0-4.5); HEMATOCRIT 28.2 % (32.4-45.2); HEMOGLOBIN 9.2 GM/dL (10.7-15.3); LYMPH % 34.7 % (8-40); MCH 26.4 pg (25.7-33.7); MCHC 32.6 g/dl (32.0-36.0); MEAN CELL VOLUME 80.8 fl (80-96); MEAN PLT VOLUME 8.4 fl (7.5-11.1); MONO % 8.3 % (3.8-10.2); NEUT % 54.2 % (42.8-82.8); PLATELET COUNT 241 10^3/uL (134-434); RBC 3.48 M/mm3 (3.60-5.2); RDW 13.9 % (11.6-15.6); WHITE BLOOD COUNT 7.3 K/mm3 (4.0-10.0)
[2022-06-27 08:34] LABS: CALCIUM 8.5 mg/dL (8.5-10.1)
[2022-06-27 08:35] LABS: BLOOD UREA NITROGEN 40.4 mg/dL (7-18)
[2022-06-27 08:37] LABS: CREATININE 1.6 mg/dL (0.55-1.3)
[2022-06-27] MEDS: ASPIRIN COATED 81 MG TABLET.EC PO SCH (09:10)
[2022-06-27] MEDS: CHOLECALCIFEROL (VIT D3) 400 UNIT (10 MCG) TABLET PO SCH (09:10)
[2022-06-27] MEDS: METOPROLOL TARTRATE 25 MG TABLET (FP) PO SCH ×2 (09:10→21:58)
[2022-06-27] MEDS: EZETIMIBE 10 MG TABLET (FP) PO SCH (09:10)
[2022-06-27] MEDS: SODIUM CHLORIDE 1,000 ML IV SCH (09:11)
[2022-06-27] MEDS: DORZOLAMIDE 2% HCL OPHTHALMIC SOLUTION 10 ML BOTTLE OU SCH ×2 (11:04→22:07)
[2022-06-27] MEDS: TIMOLOL 0.5% OPHTHALMIC SOL 5 ML BOTTLE OU SCH ×2 (11:04→22:07)
[2022-06-27] MEDS: INSULIN SLIDING SCALE (NOVOLOG) 1 VIAL SQ SCH ×2 (16:57→22:16)
[2022-06-27] MEDS ORDERED: ATORVASTATIN CA 80 MG TABLET (FP) PO SCH (22:00)
[2022-06-27] MEDS ORDERED: INSULIN (NOVOLOG) ASPART 100 UNITS/ML 10ML VIAL ONE (22:04)
[2022-06-27 22:39] LABS: PH,URINE 5.5 (5.0-8.0); URINE APPEARANCE CLOUDY; URINE BILIRUBIN NEGATIVE (NEGATIVE); URINE COLOR YELLOW; URINE GLUCOSE (UA) 2+ (NEGATIVE); URINE KETONE NEGATIVE (NEGATIVE); URINE LEUK ESTERASE NEGATIVE (NEGATIVE); URINE NITRITE NEGATIVE (NEGATIVE); URINE PROTEIN NEGATIVE (NEGATIVE)
[2022-06-28] MEDS: INSULIN SLIDING SCALE (NOVOLOG) 1 VIAL SQ SCH ×2 (06:29→11:13)
[2022-06-28] MEDS: BRIMONIDINE TARTRATE 0.1% OPHTHALMIC 5 ML BOTTLE OU SCH ×2 (06:33→14:50)
[2022-06-28] MEDS: SODIUM CHLORIDE 1,000 ML IV SCH (06:34)
[2022-06-28 08:21] VITALS: RESP 18
[2022-06-28 08:23] LABS: BASO % 0.8 % (0-2.0); EOS % 3.2 % (0-4.5); HEMATOCRIT 28.7 % (32.4-45.2); HEMOGLOBIN 9.6 GM/dL (10.7-15.3); LYMPH % 42.7 % (8-40); MCH 26.9 pg (25.7-33.7); MCHC 33.4 g/dl (32.0-36.0); MEAN CELL VOLUME 80.5 fl (80-96); MONO % 7.2 % (3.8-10.2); NEUT % 46.1 % (42.8-82.8); PLATELET COUNT 249 10^3/uL (134-434); RBC 3.57 M/mm3 (3.60-5.2); RDW 13.6 % (11.6-15.6); WHITE BLOOD COUNT 5.7 K/mm3 (4.0-10.0)
[2022-06-28 08:38] LABS: CALCIUM 8.9 mg/dL (8.5-10.1)
[2022-06-28 08:40] LABS: BLOOD UREA NITROGEN 32.3 mg/dL (7-18); MAGNESIUM 1.6 mg/dL (1.8-2.4)
[2022-06-28 08:43] LABS: CREATININE 1.3 mg/dL (0.55-1.3); PHOSPHOROUS 2.9 mg/dL (2.5-4.9)
[2022-06-28] MEDS ORDERED: ENOXAPARIN NA (PORCINE) 30 MG/0.3 ML DISP.SYRIN SQ SCH (10:00)
[2022-06-28] MEDS: ASPIRIN COATED 81 MG TABLET.EC PO SCH (10:07)
[2022-06-28] MEDS: CHOLECALCIFEROL (VIT D3) 400 UNIT (10 MCG) TABLET PO SCH (10:07)
[2022-06-28] MEDS: METOPROLOL TARTRATE 25 MG TABLET (FP) PO SCH (10:07)
[2022-06-28] MEDS: EZETIMIBE 10 MG TABLET (FP) PO SCH (10:07)
[2022-06-28] MEDS: TIMOLOL 0.5% OPHTHALMIC SOL 5 ML BOTTLE OU SCH (10:16)
[2022-06-28] MEDS: DORZOLAMIDE 2% HCL OPHTHALMIC SOLUTION 10 ML BOTTLE OU SCH (10:16)
[2022-06-28 15:50] VITALS: BP 131/75; PULSE 72; TEMP 98.3
== END 2022-06-28 16:38 | disposition home or self-care (01) ==
LOC: JER 16:04 → JERBED 22:00 → J4W 06-27 00:22
PROVIDERS: ADMIT Internal Medicine; ATTEND Internal Medicine
PROC: 3E023GC Introduction of Other Therapeutic Substance into Muscle, Percutaneous Approach (ICD-10-PCS; principal; 2022-06-26)
PROC: 3E013VG Introduction of Insulin into Subcutaneous Tissue, Percutaneous Approach (ICD-10-PCS; 2022-06-26)
PROC: 3E0337Z Introduction of Electrolytic and Water Balance Substance into Peripheral Vein, Percutaneous Approach (ICD-10-PCS; 2022-06-26)
DX: E11.649 Type 2 diabetes mellitus with hypoglycemia without coma (principal); E78.5 Hyperlipidemia, unspecified; I10 Essential (primary) hypertension; R42 Dizziness and giddiness; D64.89 Other specified anemias; U07.1 COVID-19; R79.9 Abnormal finding of blood chemistry, unspecified
CPT/HCPCS: 36415; 71046-TC-FY; 80048; 80053; 81003; 82962; 83735; 84100; 84484; 85025; 87086; 93005; 93010; 96372; 99285-25; C9803-CS; G0378; U0003; U0005

== ENCOUNTER 2024-08-19 10:13 | Inpatient (IN) | payer OTHER, BC ==
[2024-08-19 10:28] VITALS: BMI 27.3
[2024-08-19 11:40] LABS: BASO % 0.9 % (0-2.0); EOS % 1.3 % (0-4.5); HEMATOCRIT 31.3 % (32.4-45.2); HEMOGLOBIN 9.9 GM/dL (10.7-15.3); LYMPH % 19.2 % (8-40); MCH 24.3 pg (25.7-33.7); MCHC 31.6 g/dl (32.0-36.0); MEAN CELL VOLUME 76.9 fl (80-96); MEAN PLT VOLUME 8.3 fl (7.5-11.1); NEUT % 74.6 % (42.8-82.8); PLATELET COUNT 311 10^3/uL (134-434); RBC 4.07 M/mm3 (3.60-5.2); WHITE BLOOD COUNT 7.5 K/mm3 (4.0-10.0)
[2024-08-19 11:53] LABS: POTASSIUM 4.4 mmol/L (3.5-5.1)
[2024-08-19 11:55] LABS: ALBUMIN 3.5 g/dl (3.4-5.0)
[2024-08-19 11:56] LABS: BLOOD UREA NITROGEN 20.3 mg/dL (7-18); MAGNESIUM 1.7 mg/dL (1.8-2.4)
[2024-08-19 11:59] LABS: CREATININE 1.4 mg/dL (0.55-1.3)
[2024-08-19 12:00] LABS: BILIRUBIN,TOTAL 0.7 mg/dL (0.2-1); TOT PROT 7.2 g/dl (6.4-8.2)
[2024-08-19 12:04] LABS: N-TERMINAL BNP 4188.8 pg/ml (5-450)
[2024-08-19] MEDS ORDERED: ASPIRIN 81 MG CHEWABLE TABLETS ONE (13:04)
[2024-08-19] MEDS ORDERED: MAGNESIUM SULFATE IN WATER 2 GM/50 ML IVPB IVPB ONE (13:04)
[2024-08-19] MEDS: MAGNESIUM SULF 50% (8.12 MEQ/2 ML-1 GM VIAL) IVPB ONE (13:17)
[2024-08-19] MEDS: ASPIRIN 81 MG CHEWABLE TABLETS PO ONE (13:17)
[2024-08-19] MEDS ORDERED: FUROSEMIDE 40 MG/4 ML INJECTABLE VIAL ONE (14:16)
[2024-08-19] MEDS: FUROSEMIDE 40 MG/4 ML INJECTABLE VIAL IVPUSH ONE (14:32)
[2024-08-19] MEDS: INSULIN ASPART SLIDING SCALE (NOVOLOG) 1 VIAL SQ SCH (16:29)
[2024-08-19] MEDS ORDERED: DORZOLAMIDE HCL/TIMOLOL OPHTHALMIC SOLUTION 10 ML BOTTLE OU SCH (22:00)
[2024-08-19] MEDS: INSULIN (LEVEMIR) 100 UNITS/ML UNITS SQ SCH (22:24)
[2024-08-19] MEDS: ATORVASTATIN CA 80 MG TABLET (FP) PO SCH (22:24)
[2024-08-19] MEDS: METOPROLOL TARTRATE 25 MG TABLET (FP) PO SCH (22:24)
[2024-08-19] MEDS: HEPARIN NA (PORCINE) 5,000 UNITS/ML 1ML VIAL SQ SCH (22:25)
[2024-08-19] MEDS: TIMOLOL 0.5% OPHTHALMIC SOL 5 ML BOTTLE OU SCH (22:30)
[2024-08-19] MEDS: BRIMONIDINE TARTRATE 0.1% OPHTHALMIC 5 ML BOTTLE OU SCH (22:32)
[2024-08-19] MEDS: DORZOLAMIDE 2% HCL OPHTHALMIC SOLUTION 10 ML BOTTLE OU SCH (22:33)
[2024-08-20 08:27] LABS: BASO % 1.1 % (0-2.0); EOS % 2.9 % (0-4.5); HEMATOCRIT 29.1 % (32.4-45.2); HEMOGLOBIN 9.2 GM/dL (10.7-15.3); LYMPH % 20.9 % (8-40); MCH 24.4 pg (25.7-33.7); MCHC 31.8 g/dl (32.0-36.0); MEAN CELL VOLUME 76.8 fl (80-96); MEAN PLT VOLUME 8.8 fl (7.5-11.1); MONO % 5.4 % (3.8-10.2); NEUT % 69.7 % (42.8-82.8); PLATELET COUNT 282 10^3/uL (134-434); RBC 3.78 M/mm3 (3.60-5.2); RDW 16.8 % (11.6-15.6); WHITE BLOOD COUNT 6.5 K/mm3 (4.0-10.0)
[2024-08-20 08:34] LABS: CHLORIDE 107 mmol/L (98-107); POTASSIUM 4.7 mmol/L (3.5-5.1); SODIUM 141 mmol/L (136-145)
[2024-08-20 08:45] LABS: CALCIUM 8.7 mg/dL (8.5-10.1)
[2024-08-20 08:46] LABS: ALBUMIN 3.2 g/dl (3.4-5.0); ANION GAP 4 mmol/L (4-13); BLOOD UREA NITROGEN 26.7 mg/dL (7-18); CO2 30 mmol/L (21-32); GLUCOSE,RANDOM 80 mg/dL (74-106)
[2024-08-20 08:48] LABS: SGPT/ALT 138 U/L (13-61)
[2024-08-20 08:49] LABS: CHOLESTEROL 211 mg/dL (50-200); CREATININE 1.4 mg/dL (0.55-1.3); SGOT/AST 114 U/L (15-37)
[2024-08-20 08:50] LABS: BILIRUBIN,TOTAL 0.8 mg/dL (0.2-1); LDL CHOLESTEROL (ONLY SJRH) 133 mg/dL (5-100); TOT PROT 6.4 g/dl (6.4-8.2)
[2024-08-20 08:51] LABS: HDL CHOLESTEROL 54 mg/dL (40-60)
[2024-08-20 09:17] LABS: ALK PHOS 152 U/L (45-117)
[2024-08-20] MEDS ORDERED: EZETIMIBE 10 MG TABLET (FP) PO SCH (10:00)
[2024-08-20] MEDS: CHOLECALCIFEROL (VIT D3) 1,000 UNIT (25 MCG) TABLET PO SCH (10:24)
[2024-08-20] MEDS: SACUBITRIL/VALSARTAN 24 MG-26 MG TABLET PO SCH (10:24)
[2024-08-20] MEDS: ASPIRIN COATED 81 MG TABLET.EC PO SCH (10:24)
[2024-08-20] MEDS: FUROSEMIDE 40 MG/4 ML INJECTABLE VIAL IVPUSH SCH (10:25)
[2024-08-20] MEDS: INSULIN (LEVEMIR) 100 UNITS/ML UNITS SQ SCH (21:59)
[2024-08-21] MEDS: POLYETHYLENE GLYCOL (HEALTHYLAX) 3350 17 GM PACKET PO ONE (04:46)
[2024-08-21] MEDS: SENNOSIDES 8.6MG TABLET (FP) PO PRN (06:19)
[2024-08-22 09:53] LABS: BASO % 1.2 % (0-2.0); EOS % 2.8 % (0-4.5); HEMATOCRIT 30.5 % (32.4-45.2); HEMOGLOBIN 9.7 GM/dL (10.7-15.3); MCH 24.4 pg (25.7-33.7); MCHC 31.9 g/dl (32.0-36.0); MEAN CELL VOLUME 76.6 fl (80-96); MEAN PLT VOLUME 8.9 fl (7.5-11.1); MONO % 6.7 % (3.8-10.2); NEUT % 67.3 % (42.8-82.8); PLATELET COUNT 303 10^3/uL (134-434); RBC 3.98 M/mm3 (3.60-5.2); RDW 16.9 % (11.6-15.6); WHITE BLOOD COUNT 6.3 K/mm3 (4.0-10.0)
[2024-08-22 10:14] LABS: POTASSIUM 4.6 mmol/L (3.5-5.1)
[2024-08-22 10:18] LABS: ALBUMIN 3.1 g/dl (3.4-5.0); BLOOD UREA NITROGEN 32.9 mg/dL (7-18)
[2024-08-22 10:21] LABS: CREATININE 1.6 mg/dL (0.55-1.3)
[2024-08-22 10:23] LABS: BILIRUBIN,TOTAL 0.6 mg/dL (0.2-1); TOT PROT 6.5 g/dl (6.4-8.2)
[2024-08-22] MEDS: SACUBITRIL/VALSARTAN 24 MG-26 MG TABLET PO SCH (21:54)
[2024-08-23 08:44] LABS: BASO % 1.2 % (0-2.0); EOS % 4.1 % (0-4.5); HEMATOCRIT 31.1 % (32.4-45.2); LYMPH % 24.5 % (8-40); MCH 24.7 pg (25.7-33.7); MEAN CELL VOLUME 77.2 fl (80-96); MEAN PLT VOLUME 9.6 fl (7.5-11.1); MONO % 7.2 % (3.8-10.2); PLATELET COUNT 340 10^3/uL (134-434); RBC 4.03 M/mm3 (3.60-5.2); RDW 17.4 % (11.6-15.6); WHITE BLOOD COUNT 6.5 K/mm3 (4.0-10.0)
[2024-08-23 09:08] LABS: POTASSIUM 4.4 mmol/L (3.5-5.1)
[2024-08-23 09:17] LABS: ALBUMIN 3.3 g/dl (3.4-5.0)
[2024-08-23 09:20] LABS: BLOOD UREA NITROGEN 31.2 mg/dL (7-18); CALCIUM 9.4 mg/dL (8.5-10.1); CREATININE 1.4 mg/dL (0.55-1.3)
[2024-08-23 09:22] LABS: TOT PROT 6.5 g/dl (6.4-8.2)
[2024-08-23 09:27] LABS: BILIRUBIN,TOTAL 0.7 mg/dL (0.2-1)
[2024-08-24] MEDS ORDERED: REGADENOSON 0.4 MG/5 ML PRE-FILLED SYRINGE IVPUSH ONE (08:54)
[2024-08-24] MEDS: REGADENOSON 0.4 MG/5 ML PRE-FILLED SYRINGE IVPUSH ONE (09:38)
[2024-08-24] MEDS: AMINOPHYLLINE 250 MG/10 ML VIAL IVPUSH ONE (09:40)
[2024-08-24] MEDS ORDERED: AMINOPHYLLINE 250 MG/10 ML VIAL ONE (09:43)
[2024-08-24] MEDS: FUROSEMIDE 40 MG TABLET (FP) PO SCH (10:47)
[2024-08-25 05:15] VITALS: RESP 18
[2024-08-25] MEDS ORDERED: INSULIN (LEVEMIR) 100 UNITS/ML UNITS SQ ONE (07:04)
[2024-08-25] MEDS ORDERED: INSULIN ASPART SLIDING SCALE (NOVOLOG) 1 VIAL SQ ONE (07:05)
[2024-08-25 09:46] VITALS: PULSE 74
[2024-08-25 14:49] VITALS: BP 109/69; TEMP 97.3
== END 2024-08-25 15:57 | disposition home or self-care (01) | DRG 291 ==
LOC: JER 10:13 → JERBED 12:03 → OBSVTOIN 14:30 → J4S 15:47
PROVIDERS: ADMIT Internal Medicine; ATTEND Internal Medicine
DX: I13.0 Hypertensive heart and chronic kidney disease with heart failure and stage 1 through stage 4 chronic kidney disease, or unspecified chronic kidney disease (principal); I50.31 Acute diastolic (congestive) heart failure; I24.89 Other forms of acute ischemic heart disease; E11.9 Type 2 diabetes mellitus without complications; E78.5 Hyperlipidemia, unspecified; D64.9 Anemia, unspecified; N18.9 Chronic kidney disease, unspecified
CPT/HCPCS: 0241U-QW; 36415; 71045-TC-FY; 78452-TC; 80053; 80061; 82272; 82550; 82553; 82962; 83036; 83735; 83880; 84443; 84484; 85025; 93005; 93010; 93017; 93306-TC; 99291; A9502; G0378; J1644; J2785

== ENCOUNTER 2025-04-09 11:08 | Observation (INO) | payer OTHER, BC ==
[2025-04-09 11:16] VITALS: BMI 30.2
[2025-04-09] MEDS: FUROSEMIDE 40 MG/4 ML INJECTABLE VIAL IVPUSH ONE ×2 (12:09→12:10)
[2025-04-09] MEDS ORDERED: FUROSEMIDE 40 MG/4 ML INJECTABLE VIAL ONE (12:11)
[2025-04-09 12:22] LABS: ABSOLUTE IMMATURE GRANULOCYTES 0.02 x10^3/uL (0.0-0.031); BASOPHILS # 0.07 x10^3/uL (0.01-0.08); EOSINOPHIL % 3.3 % (0.7-5.8); EOSINOPHILS # 0.20 x10^3/uL (0.04-0.36); MCHC 30.5 g/dl (32.2-35.5); MEAN CELL VOLUME 83.1 fl (79.4-94.8); MEAN PLT VOLUME 10.9 fl (9.4-12.3); MONOCYTE # 0.39 x10^3/uL (0.24-0.86); MONOCYTE % 6.4 % (4.7-12.5); RDW 15.3 % (12.4-16.6)
[2025-04-09 12:30] LABS: INR 1.15 (0.83-1.09); PROTHROMBIN TIME (PATIENT) 12.7 SEC (9.7-13.0)
[2025-04-09 12:32] LABS: ACTIVATED PTT 29.3 SECONDS (25.2-36.5)
[2025-04-09 13:31] LABS: HIV INTERPRETATION NEGATIVE (NEGATIVE)
[2025-04-09 13:34] LABS: HCV DIAGNOSTIC IN-HOUSE W/RFLX NON-REACTIVE (NONREACTIVE)
[2025-04-09 13:48] LABS: GLUCOSE,RANDOM 129 mg/dL (74-106)
[2025-04-09 13:49] LABS: TOT PROT 7.4 g/dl (6.4-8.2)
[2025-04-09 13:50] LABS: CO2 21 mmol/L (21-32)
[2025-04-09 13:51] LABS: ALK PHOS 211 U/L (40-150)
[2025-04-09 13:54] LABS: CREATININE 1.52 mg/dL (0.55-1.3); SGOT/AST 89 U/L (5-34); SGPT/ALT 186 U/L (0-55)
[2025-04-09] MEDS ORDERED: MAGNESIUM SULFATE IN WATER 2 GM/50 ML IVPB IVPB ONE (14:51)
[2025-04-09] MEDS: MAGNESIUM SULF 50% (8.12 MEQ/2 ML-1 GM VIAL) IVPB ONE (15:39)
[2025-04-09] MEDS ORDERED: SENNOSIDES 8.6MG TABLET (FP) PO PRN (15:55)
[2025-04-09] MEDS: INSULIN (NOVOLOG) ASPART 100 UNITS/ML 10ML VIAL SQ SCH (17:21)
[2025-04-09] MEDS: HEPARIN NA (PORCINE) 5,000 UNITS/ML 1ML VIAL SQ SCH (21:18)
[2025-04-09] MEDS: METOPROLOL TARTRATE 25 MG TABLET (FP) PO SCH (21:19)
[2025-04-09] MEDS: INSULIN GLARGINE (LANTUS) 100 UNITS/ML UNITS SQ SCH (21:19)
[2025-04-09] MEDS: SACUBITRIL/VALSARTAN 24 MG-26 MG TABLET PO SCH (21:19)
[2025-04-09] MEDS: BRIMONIDINE TARTRATE 0.1% OPHTHALMIC 5 ML BOTTLE OU SCH (21:27)
[2025-04-09] MEDS: DORZOLAMIDE 2% HCL OPHTHALMIC SOLUTION 10 ML BOTTLE OU SCH (21:28)
[2025-04-10 08:10] LABS: ABSOLUTE IMMATURE GRANULOCYTES 0.02 x10^3/uL (0.0-0.031); BASOPHILS # 0.09 x10^3/uL (0.01-0.08); EOSINOPHIL % 4.2 % (0.7-5.8); EOSINOPHILS # 0.25 x10^3/uL (0.04-0.36); MCHC 30.4 g/dl (32.2-35.5); MEAN CELL VOLUME 82.5 fl (79.4-94.8); MEAN PLT VOLUME 10.9 fl (9.4-12.3); MONOCYTE # 0.42 x10^3/uL (0.24-0.86); MONOCYTE % 7.1 % (4.7-12.5); RDW 15.1 % (12.4-16.6)
[2025-04-10 08:49] LABS: GLUCOSE,RANDOM 149.0 mg/dL (74-106)
[2025-04-10 08:50] LABS: TOT PROT 6.0 g/dl (6.4-8.2)
[2025-04-10 08:51] LABS: CO2 23.0 mmol/L (21-32)
[2025-04-10 08:55] LABS: CREATININE 1.4 mg/dL (0.55-1.3); SGOT/AST 62.0 U/L (5-34); SGPT/ALT 134.0 U/L (0-55)
[2025-04-10] MEDS: FUROSEMIDE 40 MG/4 ML INJECTABLE VIAL IVPUSH SCH (09:21)
[2025-04-10] MEDS: ASPIRIN COATED 81 MG TABLET.EC PO SCH (09:21)
[2025-04-10 09:23] LABS: ALK PHOS 167.0 U/L (40-150)
[2025-04-10] MEDS ORDERED: ROSUVASTATIN CA 10 MG TABLET PO SCH (22:00)
[2025-04-11] MEDS ORDERED: INSULIN ASPART SLIDING SCALE (NOVOLOG) 1 VIAL SQ ONE (06:57)
[2025-04-11] MEDS ORDERED: INSULIN GLARGINE (LANTUS) 100 UNITS/ML UNITS SQ ONE (06:57)
[2025-04-11 08:27] LABS: GLUCOSE,RANDOM 83.0 mg/dL (74-106)
[2025-04-11 08:28] LABS: TOT PROT 5.9 g/dl (6.4-8.2)
[2025-04-11 08:29] LABS: CO2 27.0 mmol/L (21-32)
[2025-04-11 08:33] LABS: CREATININE 1.34 mg/dL (0.55-1.3); SGOT/AST 36.0 U/L (5-34); SGPT/ALT 95.0 U/L (0-55)
[2025-04-11 08:35] LABS: LDL CHOLESTEROL (ONLY SJRH) 168 mg/dL (5-100)
[2025-04-11 08:48] LABS: ALK PHOS 151.0 U/L (40-150)
[2025-04-12 06:51] VITALS: RESP 18
[2025-04-12] MEDS ORDERED: INSULIN ASPART SLIDING SCALE (NOVOLOG) 1 VIAL SQ ONE (06:58)
[2025-04-12] MEDS ORDERED: INSULIN GLARGINE (LANTUS) 100 UNITS/ML UNITS SQ ONE (06:58)
[2025-04-12 07:23] LABS: MCHC 31.3 g/dl (32.2-35.5); MEAN CELL VOLUME 81.1 fl (79.4-94.8); MEAN PLT VOLUME 10.4 fl (9.4-12.3); RDW 14.8 % (12.4-16.6)
[2025-04-12 07:45] LABS: GLUCOSE,RANDOM 163.0 mg/dL (74-106)
[2025-04-12 07:46] LABS: TOT PROT 6.1 g/dl (6.4-8.2)
[2025-04-12 07:47] LABS: CO2 28.0 mmol/L (21-32)
[2025-04-12 07:48] LABS: ALK PHOS 143.0 U/L (40-150)
[2025-04-12 07:51] LABS: SGOT/AST 27.0 U/L (5-34); SGPT/ALT 76.0 U/L (0-55)
[2025-04-12 07:52] LABS: CREATININE 1.24 mg/dL (0.55-1.3)
[2025-04-12 15:17] VITALS: BP 122/84; PULSE 78; TEMP 97.5
== END 2025-04-12 17:45 | disposition home or self-care (01) ==
LOC: JER 11:08 → JERBED 13:56 → J4S 15:59
PROVIDERS: ADMIT Internal Medicine; ATTEND Internal Medicine
PROC: 3E033GC Introduction of Other Therapeutic Substance into Peripheral Vein, Percutaneous Approach (ICD-10-PCS; principal; 2025-04-09)
PROC: 3E013VG Introduction of Insulin into Subcutaneous Tissue, Percutaneous Approach (ICD-10-PCS; 2025-04-09)
DX: I50.23 Acute on chronic systolic (congestive) heart failure (principal); I25.10 Atherosclerotic heart disease of native coronary artery without angina pectoris; R77.8 Other specified abnormalities of plasma proteins; E78.5 Hyperlipidemia, unspecified; E11.9 Type 2 diabetes mellitus without complications; I50.20 Unspecified systolic (congestive) heart failure; Z86.73 Personal history of transient ischemic attack (TIA), and cerebral infarction without residual deficits; Z88.0 Allergy status to penicillin
CPT/HCPCS: 36415; 71045-TC-FY; 76705-TC; 80053; 80061; 82550; 82962; 83036; 83735; 83880; 84443; 84484; 85025; 85027; 85610; 85730; 86803; 87389; 93005; 93010; 96372; 96374; 96375; 99291; G0378